=== PATIENT | male | born 1955 ===

== ENCOUNTER 2022-04-04 12:11 | Emergency (ER) | payer MEDICARE, MEDICAID, SELFPAY ==
--- NOTE | ~2022-04-04 | XR_ITS ---
EXAMINATION: XR CHEST CLINICAL INFORMATION: Cough COMPARISON: None TECHNIQUE: Frontal view of the chest was obtained. FINDINGS: Low lung volumes. Mild left basilar atelectasis. The remainder lung tian are grossly clear. There is no failure. No effusion. There has been a median sternotomy and surgical clips in the mediastinum are noted. The cardiac silhouette is not enlarged. XR/XR chest 1V IMPRESSION: Mild left basilar atelectasis
[2022-04-04 12:17] VITALS: BP 147/99; PULSE 65; RESP 18; TEMP 36.9; O2SAT 98; BMI 28.3
--- NOTE | 2022-04-04 12:24 | ECG_ITS ---
Test Reason : chest pain Blood Pressure : / mmHG Vent. Rate : 063 BPM Atrial Rate : 063 BPM P-R Int : 164 ms QRS Dur : 084 ms QT Int : 392 ms P-R-T Axes : 015 -05 015 degrees QTc Int : 401 ms Normal sinus rhythm Normal ECG When compared with ECG of 25-APR-2015 12:23, No significant change was found Referred By: Generic ED Physician Electronically Signed By:KETAN VEGA
[2022-04-04 12:39] LABS: MANUAL DIFF FLAG NO
[2022-04-04 12:49] LABS: Basophils Percent Auto 0.4 % (0-2); Eosinophils Absolute Auto 0.1 X10*3/uL (0.0-0.4); Eosinophils Percent Auto 1.3 % (0-4); Hematocrit 37.9 % (42.0-52.0); Hemoglobin 12.9 g/dl (14.0-18.0); Imm Gran Abs Auto 0.06 X10*3/uL (0.00-0.03); Imm Gran Pct Auto 0.6 % (0.0-0.4); Lymphocytes Absolute Auto 2.9 X10*3/uL (1.2-4.9); Lymphocytes Percent Auto 30.9 % (20-40); Mean Corpuscular Hemoglobin 29.3 pg (27.0-33.0); Mean Corpuscular Volume 86.1 fL (80.0-98.0); Mean Platelet Volume 10.2 fL (9.4-12.4); Monocytes Absolute Auto 0.6 X10*3/uL (0.1-1.2); Monocytes Percent Auto 6.3 % (2-11); Neutrophils Absolute Auto 5.7 x10*3/uL (2.0-8.3); Neutrophils Percent Auto 60.5 % (45-73); Platelet Count 277 X10*3/uL (160-400); Red Cell Distribution Width 12.4 % (11.0-16.0); White Blood Count 9.4 X10*3/uL (4.8-10.8)
[2022-04-04 13:04] LABS: Anion Gap 17 (12-20); Blood Urea Nitrogen 16 mg/dL (9-16); Carbon Dioxide 24 mmol/L (22-29); Chloride 106 mmol/L (96-108); Estimated Glomerular Filt Rate > 60; Glucose Random 133 mg/dL (60-115); Potassium 4.8 mmol/L (3.3-5.1); Sodium 142 mmol/L (135-145)
[2022-04-04 13:07] LABS: Troponin-I High Sensitivity < 3.5 ng/L (<3.5-35.0)
--- NOTE | 2022-04-04 14:07 | ED_ITS ---
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 Patient denies any chest pain, shortness of breath, dizziness, sweating, nausea, vomiting, URI symptoms, GI symptoms, symptoms. Patient states that he showed up to the clinic and was explained to them that he was having his baseline back pain and has known bony spurs in his back. He denies any lower leg swelling but does want to establish care with a field sales trainer here as well as possibly attend physical therapy. He otherwise states he has no acute complaints and his prescriptions have been refilled and are waiting him at the pharmacy. Related Data Allergies Allergy/AdvReac Type Severity Reaction Status Date / Time No Known Allergies Allergy Unverified 04/21/20 16:45 Review of Systems Review of Systems: Pertinent positives and negatives as stated in HPI 10 point review of systems is otherwise negative. PMFSH Past Medical History Source: nursing notes reviewed Social History Social History Advance Directives: No Advance Directives Information Provided: No Physical Exam Vital Signs: Vital Signs: Last Vital Signs Temp 98.0 F 04/04/22 15:04 Pulse 71 04/04/22 15:04 Resp 17 04/04/22 15:04 BP 141/74 H 04/04/22 15:04 Pulse Ox 98 04/04/22 15:04 O2 Del Method 04/04/22 15:04 BMI result Body Mass Index 28.3 VITAL SIGNS: Reviewed. GENERAL: Well developed, well nourished, in no acute distress. HEAD: Normocephalic/atraumatic EYES: PERRLA, EOMI EARS: Ext canals without abnormality OROPHARYNX: no oral lesions noted, posterior pharynx clear, moist mucosa NECK: Supple, no adenopathy LUNGS: Normal breath sounds. No adventitious sounds or accessory muscle use. SpO2<98> CARDIOVASCULAR: Regular rate and rhythm without noted murmurs, no JVD or lower extremity edema. ABDOMEN: Soft, non-tender, non-distended with bowel sounds. MUSCULOSKELETAL: No tenderness, deformities, or effusions noted on gross inspection. EXTREMITIES: No cyanosis, clubbing or edema; LUE: Patient has a brace to the left upper extremity that involves the forearm and hand. SKIN: Inspection of the skin reveals no rashes, ulcerations, jaundice, pallor, or petechiae. NEUROLOGIC: Alert and oriented x 4. Strength and sensation to light touch were grossly intact x 3, patient has had baseline sensation deficits in the distal aspect of the left upper extremity for over 3 years. 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 There is no evidence of cardiopulmonary or neurologic complaints or clinical findings other than those otherwise mentioned. On review of all investigations the high sensitivity troponin is undetectable and there are no acute EKG changes when compared with prior EKG in 2015. Patient was advised that I will be more than happy to provide him with a referral to see Cardiology, but the referral for physical therapy would need to come from his primary care provider. Review of all investigations negative for evidence to suggest heart failure, evidence of ischemia, chest x-ray without acute findings and all results discussed with patient at bedside. He was reassured and discharged home in stable condition. MDM - Chest Pain Lab Data Result diagrams: 04/04/22 12:34 04/04/22 12:34 Labs: Lab Results 04/04/22 04/04/22 04/04/22 Range/Units 12:34 12:34 12:34 WBC 9.4 (4.8-10.8) X10*3/uL RBC 4.40 L (4.60-5.80) X10*6/uL Hgb 12.9 L (14.0-18.0) g/dl Hct 37.9 L (42.0-52.0) % MCV 86.1 (80.0-98.0) fL MCH 29.3 (27.0-33.0) pg MCHC 34.0 (31.0-36.0) g/dl RDW 12.4 (11.0-16.0) % Plt Count 277 (160-400) X10*3/uL MPV 10.2 (9.4-12.4) fL Immature Gran % (Auto) 0.6 H (0.0-0.4) % Neut % (Auto) 60.5 (45-73) % Lymph % (Auto) 30.9 (20-40) % Stevens % (Auto) 6.3 (2-11) % Eos % (Auto) 1.3 (0-4) % Baso % (Auto) 0.4 (0-2) % Lymph # (Auto) 2.9 (1.2-4.9) X10*3/uL Stevens # (Auto) 0.6 (0.1-1.2) X10*3/uL Eos # (Auto) 0.1 (0.0-0.4) X10*3/uL Baso # (Auto) 0.0 (0.0-0.2) X10*3/uL Abs Immat Gran (auto) 0.06 H (0.00-0.03) X10*3/uL Absolute Neuts (auto) 5.7 (2.0-8.3) x10*3/uL Absolute Nucleated RBC 0.000 (0.0-0.012) X10*3/uL Nucleated RBC % (auto) 0.0 (0.0-0.2) /100WBC Sodium 142 (135-145) mmol/L Potassium 4.8 (3.3-5.1) mmol/L Chloride 106 (96-108) mmol/L Carbon Dioxide 24 (22-29) mmol/L Anion Gap 17 (12-20) BUN 16 (9-16) mg/dL Creatinine 1.05 (0.5-1.4) mg/dL Estim Creat Clear Calc 64.0 Estimated GFR > 60 Random Glucose 133 H (60-115) mg/dL Calcium 10.0 (8.4-10.2) mg/dL Troponin I High Sens < 3.5 (<3.5-35.0) ng/L B-Natriuretic Peptide 61 (<100) pg/mL Discharge Plan Discharge Clinical Impression: Atypical chest pain Patient Disposition: Home, Self-Care Instructions: Chest Pain (ED), Diabetes and Nutrition (ED) Additional Instructions: 1. Reanudar todos los medicamentos caseros seg?n lo prescrito. 2. Llame a la oficina de Cardiolog?a, se le proporciona stewart referencia a continuaci?n. 3. Maida un seguimiento con harvey proveedor de atenci?n primaria para hablar sobre la remisi?n a fisioterapia para harvey dolor de espalda cr?lauren. No dude en regresar a la pema de emergencias si los s?ntomas empeoran. Referrals: [facility] [Primary Care Provider] - (Patient is requesting a physical therapy and cardiology referral. The referral for Cardiology will be provided by us, but would appreciate you initiating the physical therapy referral. Patient presented today to the emergency room without any complaints.) Kb Coppola MD [Physician] - (66-year-old male, history CAD (CABG), stent, diabetes evaluated here in the emergency room today without acute complaints and requesting cardiology referral. Patient is receiving his medications with the [facility].) Print Language: Guatemalan
[2022-04-04 14:41] LABS: B Type Natriuretic Peptide 61 pg/mL (<100)
[2022-04-04 15:04] VITALS: BP 141/74; PULSE 71; RESP 17; TEMP 36.7; O2SAT 98
--- NOTE | 2022-04-04 15:43 | PC.NURSE ---
pt's at bedside at time of discharge. discharge packet provided to pt at time of discharge. pt PWD, reports no pain, ambulatory independently. pt verbalized understanding of discharge plan with no further questions
== END 2022-04-04 15:44 | disposition home or self-care (01) ==
PROVIDERS: Emergency Provider Student in an Organized Health Care Education/Training Program
DX: R07.89 Other chest pain (principal); I25.10 Atherosclerotic heart disease of native coronary artery without angina pectoris; R06.02 Shortness of breath; Z79.899 Other long term (current) drug therapy
CPT/HCPCS: 36415; 71045; 80048; 83880; 84484; 85025; 93005; 99283; 99284

== ENCOUNTER 2022-05-11 12:09 | Outpatient (REF) | payer MEDICARE, MEDICAID, SELFPAY ==
--- NOTE | ~2022-05-11 | XR_ITS ---
EXAMINATION: XR SHOULDER, LEFT CLINICAL INFORMATION: Pain left shoulder COMPARISON: Radiographs left shoulder 04/25/2015 TECHNIQUE: Left shoulder is imaged in 4 views. FINDINGS: No fracture, dislocation, destructive process. There are degenerative changes glenohumeral joint and mild degenerative changes acromioclavicular joint. No erosive change. No visible rotator cuff calcifications. Axial view suggests small chronic Hill-Sachs lesion posterior humeral head. There are surgical changes chest with multiple mediastinal clips and sternotomy wires. XR/XR shoulder LT min 2V IMPRESSION: -Mild degenerative changes glenohumeral joint and acromioclavicular joint. -No visible rotator cuff calcifications. -Suspect small chronic Hill-Sachs lesion posterior humeral head related to prior dislocation.
== END 2022-05-11 12:10 | disposition home or self-care (01) ==
LOC: HO.XRAY 12:09
PROVIDERS: PCP Internal Medicine; Visit Provider Internal Medicine
DX: M25.512 Pain in left shoulder (principal)
CPT/HCPCS: 73030

== ENCOUNTER → 2022-06-13 09:36 | Outpatient (BNVA) | payer OTHER, SELFPAY | PROVIDERS: PCP Internal Medicine; Referring Provider Internal Medicine; Visit Provider Internal Medicine | DX: M75.82 Other shoulder lesions, left shoulder (principal); G56.02 Carpal tunnel syndrome, left upper limb; I25.10 Atherosclerotic heart disease of native coronary artery without angina pectoris; I10 Essential (primary) hypertension; E11.8 Type 2 diabetes mellitus with unspecified complications; E78.5 Hyperlipidemia, unspecified; Z95.1 Presence of aortocoronary bypass graft | CPT/HCPCS: 20610; 93005; 99202; J1020 ==

== ENCOUNTER 2022-06-27 11:00 | Outpatient (RCR) | payer OTHER, SELFPAY | END 2022-07-24 10:58 | disposition home or self-care (01) | LOC: HO.OT 11:00 | PROVIDERS: PCP Internal Medicine; Visit Provider Internal Medicine | DX: M54.50 Low back pain, unspecified (principal) | CPT/HCPCS: 29125; 97035; 97110; 97140; 97165; 97760 ==

== ENCOUNTER → 2022-07-10 12:44 | Outpatient (REF) | payer OTHER, SELFPAY ==
--- NOTE | 2022-07-10 12:50 | CA_ITS ---
Transthoracic Echocardiogram Patient (Last, First, Middle): Huber Richey, Gender: Male Date of : 1955 Age: 67 Procedure Date: 07/10/2022 Procedure Type: Transthoracic Echocardiogram Location: OP Height: 162.56 cm Weight: 77.11 kg BSA: 1.83 m2 Heart Rate: 59 bpm BP: 110 / 70 mmHg Block Cuber: LATHA Piper MD: Vamsi Mendiola MD Analytical Data Miner: Kb Coppola MD Symptoms: I25.10 - Atherosclerotic heart disease of [place] coronary artery without... Study Quality: Fair ECG Rhythm: Bradycardia Conclusions: - 1. Low normal LV systolic function with grade 2 diastolic dysfunction with mild LVH 2. Trace aortic regurgitation 3. Normal right ventricular systolic pressure 4. No gross pericardial effusion Findings Left Ventricle Normal left ventricular cavity size. There is mildly increased left ventricular wall thickness. The left ventricular systolic function is low normal. The visually estimated ejection fraction is between 50-55%. Regional wall motion abnormalities can not be excluded due to suboptimal endocardial definition. Spectral Doppler is indicative of a pseudonormal filling pattern. E/E prime ratio is >15, consistent with elevated filling pressures. Evidence suggests grade II (moderate) diastolic dysfunction. Right Ventricle Normal right ventricular cavity size. There is mildly decreased right ventricular systolic function. Atria The left atrium is likely dilated. Interatrial shunt cannot be excluded. The right atrium was not well visualized. Aortic Valve There is mild calcification of the aortic valve. There is no aortic valve stenosis. There is trace (trivial) aortic valve regurgitation. Mitral Valve There is mild anterior and posterior mitral leaflet thickening. There is trace mitral valve regurgitation. There is no mitral valve stenosis. Pulmonic Valve The pulmonic valve was not well visualized. Tricuspid Valve Likely normal tricuspid valve structure and function. There is trace tricuspid valve regurgitation. The right ventricular systolic pressure is normal. Normal right atrial pressure. There is no evidence of pulmonary hypertension. Great Vessels All visible segments of the aorta are normal in size. The pulmonary artery was not well visualized. Venous The inferior vena cava is normal in size and collapses greater than 50% with inspiration. Pericardium/Pleural There is no evidence of pericardial effusion. Prior Study Comparison No prior study available for comparison. Recommendations, Care & Conclusions Recommend contrast in the future to improve endocardial definition. Measurements 2D Linear Measurements IVSd: 1.26 0.6-0.9/0.6-1.0 cm LVIDd: 4.24 3.9-5.3/4.2-5.9 cm LVIDd Index: 2.32 2.4-3.2/2.2-3.1 cm/m2 LVIDs: 2.91 2.0-3.6 cm LVPWd: 1.12 0.7-1.1 cm LA Diam: 3.90 2.7-3.8/3.0-4.0 cm LAIDs Index: 2.13 1.5-2.3 cm/m2 LV Mass: 222.45 67-162/88-224 g LV Mass Index: 121.56 43-95/49-115 g/m2 LVOT Diam: 1.90 3.0+(-)1.3 cm 2D Systolic Function EF 4C: 50.20 >55% EF 2C: 49.90 >55% EF BiP: 51.20 >55% Mitral Valve MV Pk E: 0.87 MV PK A: 0.79 MV Decel Time: 221.00 E/A: 1.10 E'Lateral: 7.18 E'Medial: 4.90 E/E' Med: 17.80 E/E' Lat: 12.20 PHT: 65.00 MVA PHT: 3.38 Decel [place]: 3.96 Aortic Valve AoV Pk Nigel: 1.19 AoV Mn Nigel: 0.82 AoV VTI: 0.26 AoV Pk Grad: 6.00 Aov Mn Grad: 3.00 KATRINA Cont.VTI: 2.01 LVOT LVOT Pk Nigel: 0.79 LVOT Mn Nigel: 0.56 LVOT VTI: 0.18 LVOT Pk Grad: 2.00 LVOT Mn Grad: 1.00 LVOT Diam: 1.90 LVOT Area: 2.84 Diastolic Function MV Pk E: 0.87 MV Pk A: 0.79 E/A: 1.10 E'Medial: 4.90 E/E' Med: 17.80 E' Laterial: 7.18 E/E' Lat: 12.20 Right Ventricle TAPSE (mm): 16.90 TVS' Nigel: 6.98 Tricuspid Valve TR Pk Nigel: 2.25 TR Pk Grad: 20.00 RA Press: 3.00 RVSP: 23.00 Great Vessels Aorta Sinus of Valsalva: 3.40 2.0-3.5 cm Ao Asc: 3.20 2.1-3.4 cm Pulmonary Valve PV Pk Nigel: 0.95 Peak PV Grad: 4.00 Updated in Other Vendor System with Status of Final Kb Coppola MD electronically signed on 07/13/2022 4:07:41 PM with status of Final
== END ==
LOC: HO.CARD 12:44
PROVIDERS: PCP Internal Medicine; Visit Provider Internal Medicine
DX: I25.10 Atherosclerotic heart disease of native coronary artery without angina pectoris (principal); Z95.1 Presence of aortocoronary bypass graft
CPT/HCPCS: 93306

== ENCOUNTER 2022-08-14 11:00 | Outpatient (RCR) | payer OTHER, SELFPAY | END 2022-10-02 08:52 | disposition home or self-care (01) | LOC: HO.PT 11:00 | PROVIDERS: PCP Internal Medicine; Visit Provider General Practice | DX: M54.50 Low back pain, unspecified (principal) | CPT/HCPCS: 97110; 97162 ==

== ENCOUNTER → 2022-09-26 11:47 | Outpatient (BNVA) | payer OTHER, SELFPAY | PROVIDERS: PCP Internal Medicine; Referring Provider Internal Medicine; Visit Provider Internal Medicine | DX: Z13.89 Encounter for screening for other disorder (principal) ==

== ENCOUNTER → 2022-11-22 09:41 | Outpatient (BNVA) | payer OTHER, SELFPAY | PROVIDERS: PCP Internal Medicine; Visit Provider Physician Assistant | DX: M75.82 Other shoulder lesions, left shoulder (principal) | CPT/HCPCS: 99212 ==

== ENCOUNTER 2023-01-03 12:00 | Outpatient (RCR) | payer OTHER, SELFPAY ==
--- NOTE | 2022-12-17 13:55 | MHC.PT.EP ---
[facility] [place] Office [place] Office [place] Office [address] [phone] F: [phone] F: [phone] F: [phone] F: [phone] Physical Therapy Plan of Care Date of Evaluation: Date of Surgery: N/A Diagnosis: other shoulder lesions, left shoulder Assessment: Pt is a 67yo M who presents to PT with chronic L shoulder pain with history of dislocations >5 years ago per pt report. He presents to PT with current impairments in pain, decreased L shoulder ROM, decreased L UE strength, and impaired posture. He is limited functionally by lifting, reaching, and overhead ADLs. He is a good candidate for skilled PT in order to address current impairments to facilitate return to PLOF. He is recommended to be seen 2x/week for 4 weeks and will be reassessed at that time. Frequency and Duration: The patient will be seen 2x/week for 4 weeks Short Term Goals: Pt will be I with HEP to promote self management of symptoms Pt will improve L shoulder flexion by at least 10 degrees Fpc Goals: Pt will perform overhead ADLs with minimal to no compensation Pt will achieve full ROM and strength all planes of L shoulder to assist with lifting and reaching Treatment Plan: Modalities to reduce pain, spasms and effusion. Manual therapy to restore motion and function. Therapeutic exercise to improve strength and flexibility. Neuromuscular re-education for posture and balance. Therapeutic activities to return to functional activities of daily living. Electronically signed by: Germaine Edmondson, PT, DPT Please sign and return to therapist. Thank you for your referral.
--- NOTE | 2023-01-15 14:23 | MHC.PT.DC ---
[facility] [place] Office [place] Office [place] Office [address] [phone] F: [phone] F: [phone] F: [phone] F: [phone] Physical Therapy Discharge Report Diagnosis: other shoulder lesions, left shoulder Date of Surgery: N/A Date of Evaluation: 12/17/22 Date of Discharge: 01/15/23 Treatments to Date: 3 Cancellations to Date: 1 No Shows to Date: 4 Discharge Status: Visit Non-compliance Discharge Summary: Pt was seen for PT from 12/17/22-01/03/23. His last attended appointment was 01/03/23. He had 4 no-shows since SOC. Pt is being D/C from skilled PT per [facility] attendance policy and visit non compliance. Pt current level of function unknown at this time. Electronically signed by: Germaine Edmondson, PT, DPT Please sign and return to therapist. Thank you for your referral.
== END 2023-01-15 14:23 | disposition home or self-care (01) ==
LOC: HO.PT 12:00
PROVIDERS: PCP Internal Medicine; Visit Provider Physician Assistant
DX: M75.82 Other shoulder lesions, left shoulder (principal)
CPT/HCPCS: 97110; 97162

== ENCOUNTER 2023-02-11 11:18 | Outpatient (REF) | payer OTHER, SELFPAY ==
[2023-02-13 21:48] LABS: Rubeola IgG (Measles) >300.00 AU/mL
[2023-02-14 03:14] LABS: TS Negative Control Passed; TS Panel A 0; TS Panel B 0; TS Positive Control Passed; TSpotTB Negative (Negative)
== END 2023-02-11 11:19 | disposition home or self-care (01) ==
LOC: HO.HHCL 11:18
PROVIDERS: Visit Provider Internal Medicine
DX: Z00.00 Encounter for general adult medical examination without abnormal findings (principal); Z11.1 Encounter for screening for respiratory tuberculosis
CPT/HCPCS: 36415; 86481; 86735; 86762; 86765

== ENCOUNTER 2023-02-13 11:33 | Outpatient (AMB) | payer OTHER, SELFPAY ==
[2023-02-13 11:36] VITALS: BMI 30.4
--- NOTE | 2023-02-13 11:36 | A.OFFVIS_ITS ---
Intake Vital Signs 02/13/23 11:36 Height 5 ft 4 in Weight 177 lb BMI 30.4 Intake Visit Reasons: OV- LT shoulder pain MRI review Intake Note: Huber is a 67 year old male who presents today for an MRI review of left shoulder pain. Patient reports no improvement in pain, stating pain is worse and is now radiating down to his elbow. Allergies ibuprofen Adverse Reaction (Intermediate, Verified 02/13/23 11:38) Swelling HPI OV- LT shoulder pain MRI review HPI Details 67-year-old male who returns to the office today for an MRI review of left shoulder pain. He continues to have worsening pain in his shoulder which radiates down to his elbow along with instability in the shoulder. He has not attended PT as requested. [facility] Medical History Alcohol dependence with unspecified alcohol-induced disorder Anxiety and depression Atherosclerotic cardiovascular disease Chronic left shoulder pain Erectile dysfunction Essential hypertension Hyperlipidemia, unspecified Osteoarthritis of hips, bilateral Stomach ulcer Type 2 diabetes mellitus with unspecified complications Surgical History S/P CABG (coronary artery bypass graft) Family History Father No problems noted. Mother Breast cancer Sister No problems noted. Social History Patient Tobacco Use Status: Former Tobacco user Review of Systems Const All systems reviewed & are unremarkable except as noted in HPI and below Physical Exam Vital Signs: BMI result Body Mass Index 30.4 Const General: cooperative and no acute distress Orientation/consciousness: patient oriented x3 Resp Effort & Inspection: normal respiratory effort and able to speak in complete sentences Cardio Peripheral pulses: Peripheral pulses 2+ throughout Neuro General: patient oriented x3 Extrem Other: Left shoulder normal to inspection. Tenderness over the bicipital groove and along the deltoid region of the shoulder. FF to 175, ER to 90, IR to S1. 5/5 RTC strength, negative pena, cross body abduction. NVI. Results Reviewed Results Reviewed: MRI of the left shoulder 12/24/22 -Mild supraspinatus tendinosis with irregular bursal surface fraying distally measuring 1.5cm in AP dimension. Minimal infraspinatus tendinosis. No full thickness rotator cuff tendon tear -Moderate ac joint oa with mod sub acromial spurring -non displaced undersurface tear of the superior labrum. No anterior or anteroinferior labral tear -chronic hill sachs deformity at the posterior aspectof the humeral head associated with marrow edema. No acute osseous abnormality -mild ghj oa Assessment & Plan Assessment & Plan (1) Tendonitis of left rotator cuff: Code(s): M75.82 - Other shoulder lesions, left shoulder (2) Instability of left shoulder joint: Code(s): M25.312 - Other instability, left shoulder Plan He is going to begin a course of physical therapy to work on RTC and periscapular stabilization. I would also like him to meet with Dr. Barbosa in 6- 8 weeks to determine if he is a surgical candidate for a possible RTC repair and labral debridement. He is content with the plan and will follow-up as scheduled Orders: Orders PT Evaluation and Treatment Today M25.312 - Other instability, left shoulder, M75.82 - Other shoulder lesions, left shoulder Patient Instructions: Scribed for Rodríguez Sidhu PA-C, by Khoi Hardy senior medical billing specialist, on 02/13/2023 at 11:30 AM EST. I, Rodríguez Sidhu PA-C, have personally reviewed and agree with the information entered by the scribe. Coding Level of Care Code Est Pt Level 3 (02009) Diagnoses Tendonitis of left rotator cuff M75.82 Instability of left shoulder joint M25.312
== END 2023-02-13 11:58 | disposition home or self-care (01) ==
PROVIDERS: PCP Internal Medicine; Visit Provider Physician Assistant
DX: M75.82 Other shoulder lesions, left shoulder (principal); M25.312 Other instability, left shoulder; M19.012 Primary osteoarthritis, left shoulder
CPT/HCPCS: 99213

== ENCOUNTER → 2023-02-13 11:33 | Outpatient (BNVA) | payer OTHER, SELFPAY | PROVIDERS: PCP Internal Medicine; Visit Provider Physician Assistant | DX: M75.82 Other shoulder lesions, left shoulder (principal); M25.312 Other instability, left shoulder | CPT/HCPCS: 99212 ==

== ENCOUNTER 2023-02-17 11:15 | Emergency (ER) | payer OTHER, SELFPAY ==
--- NOTE | ~2023-02-17 | XR_ITS ---
EXAMINATION: XR CHEST CLINICAL INFORMATION: Chest pain. COMPARISON: 04/04/2022 chest radiograph. TECHNIQUE: Frontal view of the chest was obtained. FINDINGS: The lungs are clear. Multiple surgical clips overlie the cardiomediastinal silhouette without abnormality. Multiple sternotomy wires are intact. XR/XR chest 1V IMPRESSION: No acute cardiopulmonary process.
--- NOTE | 2023-02-17 11:18 | ECG_ITS ---
Test Reason : CHEST PAIN Blood Pressure : / mmHG Vent. Rate : 068 BPM Atrial Rate : 068 BPM P-R Int : 138 ms QRS Dur : 078 ms QT Int : 374 ms P-R-T Axes : 046 -14 020 degrees QTc Int : 397 ms Normal sinus rhythm Normal ECG When compared with ECG of 04-APR-2022 12:26, No significant change was found Referred By: Generic ED Physician Electronically Signed By:Chava Crockett
[2023-02-17 11:29] VITALS: BP 170/89; PULSE 75; RESP 20; TEMP 35.9; O2SAT 97; BMI 29.2
[2023-02-17 11:35] LABS: MANUAL DIFF FLAG NO
[2023-02-17 11:36] LABS: Basophils Percent Auto 0.4 % (0-2); Eosinophils Absolute Auto 0.2 X10*3/uL (0.0-0.4); Hematocrit 40.8 % (42.0-52.0); Hemoglobin 13.5 g/dl (14.0-18.0); Imm Gran Abs Auto 0.05 X10*3/uL (0.00-0.03); Imm Gran Pct Auto 0.6 % (0.0-0.4); Lymphocytes Absolute Auto 2.8 X10*3/uL (1.2-4.9); Lymphocytes Percent Auto 34.6 % (20-40); Mean Corpuscular HGB Conc 33.1 g/dl (31.0-36.0); Mean Corpuscular Hemoglobin 29.1 pg (27.0-33.0); Mean Corpuscular Volume 87.9 fL (80.0-98.0); Mean Platelet Volume 9.9 fL (9.4-12.4); Monocytes Absolute Auto 0.6 X10*3/uL (0.1-1.2); Monocytes Percent Auto 7.5 % (2-11); Neutrophils Absolute Auto 4.5 x10*3/uL (2.0-8.3); Neutrophils Percent Auto 54.9 % (45-73); Platelet Count 243 X10*3/uL (160-400); Red Blood Count 4.64 X10*6/uL (4.60-5.80); Red Cell Distribution Width 12.9 % (11.0-16.0); White Blood Count 8.1 X10*3/uL (4.8-10.8)
[2023-02-17 11:48] LABS: Anion Gap 17 (12-20); Blood Urea Nitrogen 12 mg/dL (9-16); Calcium 10.5 mg/dL (8.4-10.2); Carbon Dioxide 23 mmol/L (22-29); Chloride 102 mmol/L (96-108); Creatinine Clr Calc Pharmacy 62.3; Estimated Glomerular Filt Rate > 60; Glucose Random 247 mg/dL (60-115); Potassium 5.1 mmol/L (3.3-5.1); Sodium 137 mmol/L (135-145)
[2023-02-17 12:00] LABS: Troponin-I High Sensitivity < 2.7 ng/L (<3.5-35.0)
--- NOTE | 2023-02-17 12:33 | ED_ITS ---
HPI - Skin/Abscess/Foreign Bdy General Chief complaint: Skin/Abscess/Foreign Body Stated complaint: chest pain, rash, vaccine reaction? Time Seen by Provider: 02/17/23 12:00 Source: patient Mode of arrival: ambulatory Limitations: language barrier ( Greek-speaking medical receptionist biller utilized) History of Present Illness HPI narrative: patient is a 67-year-old male who presents emergency department for evaluation a painful pruritic burning rash to the right lateral neck, shoulder, and upper chest. Reports that this rash started 2022 which was 2 days after he received Tdap and pneumococcal 20-valent vaccination. denies headache, dizziness, lightheadedness, difficulty breathing, ear pain. Related Data Home Medications Medication Instructions Recorded Confirmed acetaminophen 500 mg tablet 1,000 mg PO Q8H PRN 06/13/22 11/22/22 omeprazole 20 mg capsule,delayed 20 mg PO BID 06/13/22 11/22/22 release amlodipine 2.5 mg tablet 2.5 mg PO DAILY 09/26/22 11/22/22 aspirin 81 mg tablet,delayed 81 mg PO DAILY 09/26/22 11/22/22 release (Adult Aspirin Regimen) clopidogrel 75 mg tablet (Plavix) 75 mg PO DAILY 09/26/22 11/22/22 gabapentin 100 mg capsule 100 mg PO DAILY 09/26/22 11/22/22 insulin glargine 100 unit/mL 30 unit subcut DAILY 09/26/22 11/22/22 subcutaneous solution (Lantus U-100 Insulin) lisinopril 40 mg tablet 40 mg PO DAILY 09/26/22 11/22/22 metformin 1,000 mg tablet 1,000 mg PO BID 09/26/22 11/22/22 metoprolol succinate 50 mg 50 mg PO DAILY 09/26/22 11/22/22 tablet,extended release 24 hr rosuvastatin 40 mg tablet 40 mg PO DAILY 09/26/22 11/22/22 sildenafil 100 mg tablet (Viagra) 100 mg PO DAILY PRN 09/26/22 11/22/22 Previous Rx's Medication Instructions Recorded lorazepam 0.5 mg tablet 0.5 mg PO DAILY PRN anxiety #2 tabs 11/22/22 oxycodone 5 mg tablet 5 mg PO Q6H PRN pain #10 tabs 02/17/23 valacyclovir 1 gram tablet 1,000 mg PO TID 7 days #21 tabs 02/17/23 Allergies Allergy/AdvReac Type Severity Reaction Status Date / Time ibuprofen AdvReac Intermediate Swelling Verified 02/13/23 11:38 Review of Systems Review of Systems: Constitutional: No weight loss, fever, chills, weakness or fatigue. Skin: positive rash Cardiovascular: positive chest pain No palpitations or pedal edema. Respiratory: No shortness of breath, cough or sputum production. Gastrointestinal: No anorexia, nausea, vomiting or diarrhea. No abdominal pain or blood in stool. Genitourinary: No burning micturition. No urinary frequency or incontinence. Musculoskeletal: No muscle pain, back pain, joint pain or stiffness. Psychiatric: No depression or anxiety. Yes all other systems are reviewed and are negative [facility] Past Medical History Attestation statement: The following information was validated with the patient. Source: old records reviewed Medical History Alcohol dependence with unspecified alcohol-induced disorder Anxiety and depression Atherosclerotic cardiovascular disease Chronic left shoulder pain Erectile dysfunction Essential hypertension Hyperlipidemia, unspecified Osteoarthritis of hips, bilateral Stomach ulcer Type 2 diabetes mellitus with unspecified complications Surgical History S/P CABG (coronary artery bypass graft) Family History Family History Father No problems noted. Mother Breast cancer Sister No problems noted. Social History Social History Patient Tobacco Use Status: Former Tobacco user Advance Directives: No Advance Directives Information Provided: Yes Physical Exam Vital Signs: Vital Signs: Last Vital Signs Temp 96.6 F L 02/17/23 11:29 Pulse 75 02/17/23 11:29 Resp 20 02/17/23 11:29 BP 170/89 H 02/17/23 11:29 Pulse Ox 97 02/17/23 11:29 O2 Del Method Room Air 02/17/23 11:29 BMI result Body Mass Index 29.2 Appearance: Alert.?Oriented to person, place and time. No acute distress.?Normal affect. Eyes: Pupils equal, round and reactive to light.? ENT: Pharynx normal. TM normal bilaterally?? Neck: Normal inspection.? Neck supple.?? CVS: Heart sounds normal. Normal heart rate and rhythm.? Pulses normal.?? Respiratory: No respiratory distress.? Lung sounds clear to auscultation bilaterally?? Abdomen: Soft and non-tender. Normoactive bowel sounds. Skin: Skin warm and dry.? Normal skin color.? vesicular eruption with erythematous base Extremities: No lower extremity edema.? Neuro: Moves all extremities spontaneously. Sensation intact bilaterally. No focal neuro deficits. Ambulates with normal steady gait. Medical Decision Making Medical Decision Making [facility] Narrative: Patient is a 67-year-old male presents emergency department for evaluation of a rash with associated pain. CBC is without leukocytosis, a very mild normocytic anemia which is consistent with baseline. BMP is overall unremarkable, elevated random glucose patient is a type 2 diabetic. Troponin <2.7, EKG revealing normal sinus rhythm with ventricular rate of 68, normal axis, no ST elevation, no ST depression, no T-wave inversion, QTC of 397, no acute ischemic changes, not consistent with ACS at this time. Chest x-ray without any acute cardiopulmonary process. Pain would not be consistent with pneumonia or pneumothorax. Upon physical examination rash at this time appears most consistent with herpes zoster involving dermatomes C3-C6, I explained this at length to patient. Discussed appropriate treatment with valacyclovir and oxycodone for pain. Discussed precautions with the use of oxycodone. Reviewed worrisome signs and symptoms that would warrant re-evaluation in the emergency department. All questions answered. At this time he is stable for discharge. Differential Diagnosis Differential Diagnoses: The differential diagnosis associated with the presentation includes ( Vaccine reaction, herpes simplex virus, herpes zoster, contact dermatitis, drug eruption, ACS) Admission/Observation Consideration of admission/observation: Escalation of care including ad mission/observation considered ( considered admission for chest pain, please see course narrative) Lab Data [facility] Lab Attestation statement: I reviewed the patient's lab results. ( See above narrative) 02/17/23 11:28 02/17/23 11:28 Labs: Lab Results 02/17/23 02/17/23 02/17/23 Range/Units 11:28 11:28 11:28 WBC 8.1 (4.8-10.8) X10*3/uL RBC 4.64 (4.60-5.80) X10*6/uL Hgb 13.5 L (14.0-18.0) g/dl Hct 40.8 L (42.0-52.0) % MCV 87.9 (80.0-98.0) fL MCH 29.1 (27.0-33.0) pg MCHC 33.1 (31.0-36.0) g/dl RDW 12.9 (11.0-16.0) % Plt Count 243 (160-400) X10*3/uL MPV 9.9 (9.4-12.4) fL Immature Gran % (Auto) 0.6 H (0.0-0.4) % Neut % (Auto) 54.9 (45-73) % Lymph % (Auto) 34.6 (20-40) % [place] % (Auto) 7.5 (2-11) % Eos % (Auto) 2.0 (0-4) % Baso % (Auto) 0.4 (0-2) % Lymph # (Auto) 2.8 (1.2-4.9) X10*3/uL [place] # (Auto) 0.6 (0.1-1.2) X10*3/uL Eos # (Auto) 0.2 (0.0-0.4) X10*3/uL Baso # (Auto) 0.0 (0.0-0.2) X10*3/uL Abs Immat Gran (auto) 0.05 H (0.00-0.03) X10*3/uL Absolute Neuts (auto) 4.5 (2.0-8.3) x10*3/uL Absolute Nucleated RBC 0.000 (0.0-0.012) X10*3/uL Nucleated RBC % (auto) 0.0 (0.0-0.2) /100WBC Sodium 137 (135-145) mmol/L Potassium 5.1 (3.3-5.1) mmol/L Chloride 102 (96-108) mmol/L Carbon Dioxide 23 (22-29) mmol/L Anion Gap 17 (12-20) BUN 12 (9-16) mg/dL Creatinine 1.08 (0.5-1.4) mg/dL Estim Creat Clear Calc 62.3 Estimated GFR > 60 Random Glucose 247 H (60-115) mg/dL Calcium 10.5 H (8.4-10.2) mg/dL Troponin I High Sens < 2.7 (<3.5-35.0) ng/L Independent Interpretation I performed an independent interpretation of an: EKG ( as per above narrative) and Plain X-Ray ( I personally interpreted chest x-ray and agree with radiolog ist impression, no pneumonia or pneumothorax) Radiology Impression Discussion of test interpretation with radiology: I have reviewed the radiologist's reading. Radiologist Impression: XR/XR chest 1V IMPRESSION: No acute cardiopulmonary process. Independent Historian Clinical information obtained from an independent historian. History obtained from or confirmed by: Spouse ( patient's significant other is present at bedside who confirmed history) External Record Review External record reviewed: Other ( external vaccination record) Prescription Management I considered prescription management with: Pain Medication and Antiviral Discharge Plan Discharge Clinical Impression: Herpes zoster Patient Disposition: Home, Self-Care Instructions: Shingles (ED) Additional Instructions: - As discussed, the rash that is currently present appears most consistent with a shingles rash, this is from the herpes zoster virus, the same virus that causes chickenpox in childhood. - I have sent a prescription for valacyclovir to your pharmacy, this is an antiviral medication. Please complete this entire course. Be sure to drink plenty of fluids while taking this medication. - I have also sent a prescription for pain medication to your pharmacy, oxy codone. This is a narcotic medication, it may be addictive in it may make you drowsy. You should not drive, drink alcohol, or operate machinery while taking this medication. - You should refrain from being around young children, or breast- feeding women as this may be contagious and can cause them to get the virus. - Please contact your primary care provider to arrange for a follow-up visit. - Ciro se mencion?, la erupci?n que est? presente actualmente parece m?s consis tente con stewart erupci?n de herpes z?ster, esto es del virus del herpes zoster, el mismo virus que causa la varicela en la infancia. - He enviado stewart receta de valaciclovir a harvey farmacia, irvin es un medicamento antiviral. Por favor complete todo irvin curso. Aseg?rese de beber muchos l?quidos mientras rylie irvin medicamento. - Tambi?n he enviado stewart receta de analg?sicos a harvey farmacia, oxicodona. Irvin es un medicamento narc?camille, puede ser adictivo y puede causarle somnolencia. No debe conducir, beber alcohol ni operar maquinaria mientras rylie irvin medicamento. - Debe abstenerse de estar cerca de ni?os hoang?os, mujeres embarazadas o en per?odo de lactancia, ya que esto puede ser contagioso y puede hacer que se contagien del virus. - Comun?quese con harvey proveedor de atenci?n primaria para programar stewart visita de seguimiento. Prescriptions: New valacyclovir 1 gram tablet 1,000 mg PO TID 7 Days Qty: 21 0RF oxycodone 5 mg tablet 5 mg PO Q6H PRN (Reason: pain) Qty: 10 0RF Rx Instructions: Partial Fill upon patient request. No Action amlodipine 2.5 mg tablet 2.5 mg PO DAILY aspirin [Adult Aspirin Regimen] 81 mg tablet,delayed release (DR/EC) 81 mg PO DAILY clopidogrel [Plavix] 75 mg tablet 75 mg PO DAILY gabapentin 100 mg capsule 100 mg PO DAILY insulin glargine [Lantus U-100 Insulin] 100 unit/mL solution 30 unit subcut DAILY lisinopril 40 mg tablet 40 mg PO DAILY metformin 1,000 mg tablet 1,000 mg PO BID metoprolol succinate 50 mg tablet extended release 24 hr 50 mg PO DAILY rosuvastatin 40 mg tablet 40 mg PO DAILY sildenafil [Viagra] 100 mg tablet 100 mg PO DAILY PRN Rx Instructions: administer 30 minutes to 4 hours before activity omeprazole 20 mg capsule,delayed release(DR/EC) 20 mg PO BID acetaminophen 500 mg tablet 1,000 mg PO Q8H PRN lorazepam 0.5 mg tablet 0.5 mg PO DAILY PRN (Reason: anxiety) Qty: 2 0RF Rx Instructions: 1 tab 30 mins prior to exam, 2nd tab prn. Do not drive while taking this medication Referrals: Joan Little MD [Primary Care Provider] - Print Language: Greek
== END 2023-02-17 13:12 | disposition home or self-care (01) ==
PROVIDERS: Emergency Provider Student in an Organized Health Care Education/Training Program; PCP Internal Medicine
DX: B02.8 Zoster with other complications (principal); R07.89 Other chest pain; R21 Rash and other nonspecific skin eruption; Z79.899 Other long term (current) drug therapy; Z87.891 Personal history of nicotine dependence
CPT/HCPCS: 36415; 71045; 80048; 84484; 85025; 93005; 99284

== ENCOUNTER → 2023-02-17 11:18 | Outpatient (BNV) | payer OTHER, SELFPAY | PROVIDERS: Emergency Provider Student in an Organized Health Care Education/Training Program; PCP Internal Medicine; Visit Provider Internal Medicine Cardiovascular Disease | DX: R07.9 Chest pain, unspecified (principal) | CPT/HCPCS: 93010 ==

== ENCOUNTER 2023-02-26 12:02 | Outpatient (REF) | payer OTHER, SELFPAY ==
[2023-02-26 13:13] LABS: MANUAL DIFF FLAG NO
[2023-02-26 13:27] LABS: Basophils Percent Auto 0.3 % (0-2); Eosinophils Absolute Auto 0.2 X10*3/uL (0.0-0.4); Eosinophils Percent Auto 1.5 % (0-4); Hematocrit 38.9 % (42.0-52.0); Hemoglobin 12.7 g/dl (14.0-18.0); Imm Gran Abs Auto 0.05 X10*3/uL (0.00-0.03); Imm Gran Pct Auto 0.5 % (0.0-0.4); Lymphocytes Absolute Auto 3.3 X10*3/uL (1.2-4.9); Lymphocytes Percent Auto 33.4 % (20-40); Mean Corpuscular HGB Conc 32.6 g/dl (31.0-36.0); Mean Corpuscular Volume 88.8 fL (80.0-98.0); Mean Platelet Volume 10.1 fL (9.4-12.4); Monocytes Absolute Auto 0.7 X10*3/uL (0.1-1.2); Monocytes Percent Auto 6.9 % (2-11); Neutrophils Absolute Auto 5.7 x10*3/uL (2.0-8.3); Neutrophils Percent Auto 57.4 % (45-73); Platelet Count 324 X10*3/uL (160-400); Red Blood Count 4.38 X10*6/uL (4.60-5.80); White Blood Count 9.9 X10*3/uL (4.8-10.8)
== END 2023-02-26 12:03 | disposition home or self-care (01) ==
LOC: HO.HHCL 12:02
PROVIDERS: Visit Provider Internal Medicine
DX: K62.5 Hemorrhage of anus and rectum (principal)
CPT/HCPCS: 36415; 85025

== ENCOUNTER 2023-03-08 | Outpatient (REF) | payer OTHER, SELFPAY | END 2023-03-08 00:01 | disposition home or self-care (01) | LOC: HO.HOSX | PROVIDERS: Visit Provider Physician Assistant | DX: Z13.89 Encounter for screening for other disorder (principal) ==

== ENCOUNTER 2023-03-08 10:38 | Emergency (ER) | payer OTHER, SELFPAY ==
[2023-03-08 10:43] VITALS: BP 143/72; PULSE 72; RESP 16; TEMP 36.6; O2SAT 98; BMI 28.7
[2023-03-08 11:15] LABS: MANUAL DIFF FLAG NO
[2023-03-08 11:17] LABS: Basophils Percent Auto 0.4 % (0-2); Eosinophils Absolute Auto 0.2 X10*3/uL (0.0-0.4); Eosinophils Percent Auto 2.1 % (0-4); Hemoglobin 12.1 g/dl (14.0-18.0); Imm Gran Abs Auto 0.03 X10*3/uL (0.00-0.03); Imm Gran Pct Auto 0.3 % (0.0-0.4); Lymphocytes Absolute Auto 2.9 X10*3/uL (1.2-4.9); Lymphocytes Percent Auto 31.6 % (20-40); Mean Corpuscular HGB Conc 33.6 g/dl (31.0-36.0); Mean Corpuscular Hemoglobin 29.4 pg (27.0-33.0); Mean Corpuscular Volume 87.4 fL (80.0-98.0); Mean Platelet Volume 9.8 fL (9.4-12.4); Monocytes Absolute Auto 0.6 X10*3/uL (0.1-1.2); Monocytes Percent Auto 6.9 % (2-11); Neutrophils Absolute Auto 5.4 x10*3/uL (2.0-8.3); Neutrophils Percent Auto 58.7 % (45-73); Platelet Count 280 X10*3/uL (160-400); Red Blood Count 4.12 X10*6/uL (4.60-5.80); Red Cell Distribution Width 13.2 % (11.0-16.0); White Blood Count 9.2 X10*3/uL (4.8-10.8)
[2023-03-08 14:15] VITALS: BP 126/76; PULSE 60; RESP 16; TEMP 36.7; O2SAT 97
[2023-03-08 14:32] LABS: OBS Int Ctl Valid YES; OBS1 POSITIVE (NEGATIVE)
--- NOTE | 2023-03-08 15:14 | ED_ITS ---
HPI - General Adult General Chief complaint: Abdominal Pain Stated complaint: bloody stool x1week Time Seen by Provider: 03/08/23 13:37 Source: patient Mode of arrival: ambulatory Limitations: no limitations History of Present Illness HPI narrative: 67-year-old male history of hemorrhoids presents to the rectal bleeding on bowel movement for 1 week. Patient describes blood as bright red blood. Patient sees blood on tissue. Patient states stool is brown normal color. Patient denies any abdominal pain, weakness, dizziness, chest pain, shortness of breath, or passing out. Patient came to the ED for evaluation. Related Data Home Medications Medication Instructions Recorded Confirmed acetaminophen 500 mg tablet 1,000 mg PO Q8H PRN 06/13/22 11/22/22 omeprazole 20 mg capsule,delayed 20 mg PO BID 06/13/22 11/22/22 release amlodipine 2.5 mg tablet 2.5 mg PO DAILY 09/26/22 11/22/22 aspirin 81 mg tablet,delayed 81 mg PO DAILY 09/26/22 11/22/22 release (Adult Aspirin Regimen) clopidogrel 75 mg tablet (Plavix) 75 mg PO DAILY 09/26/22 11/22/22 gabapentin 100 mg capsule 100 mg PO DAILY 09/26/22 11/22/22 insulin glargine 100 unit/mL 30 unit subcut DAILY 09/26/22 11/22/22 subcutaneous solution (Lantus U-100 Insulin) lisinopril 40 mg tablet 40 mg PO DAILY 09/26/22 11/22/22 metformin 1,000 mg tablet 1,000 mg PO BID 09/26/22 11/22/22 metoprolol succinate 50 mg 50 mg PO DAILY 09/26/22 11/22/22 tablet,extended release 24 hr rosuvastatin 40 mg tablet 40 mg PO DAILY 09/26/22 11/22/22 sildenafil 100 mg tablet (Viagra) 100 mg PO DAILY PRN 09/26/22 11/22/22 Previous Rx's Medication Instructions Recorded lorazepam 0.5 mg tablet 0.5 mg PO DAILY PRN anxiety #2 tabs 11/22/22 oxycodone 5 mg tablet 5 mg PO Q6H PRN pain #10 tabs 02/17/23 valacyclovir 1 gram tablet 1,000 mg PO TID 7 days #21 tabs 02/17/23 hydrocortisone acetate 25 mg 25 mg VA BEDTIME #12 ea 03/08/23 rectal suppository (Anusol-HC) Allergies Allergy/AdvReac Type Severity Reaction Status Date / Time ibuprofen AdvReac Intermediate Swelling Verified 02/13/23 11:38 Review of Systems Review of Systems: Yes all other systems are reviewed and are negative [facility] Past Medical History Medical History Alcohol dependence with unspecified alcohol-induced disorder Anxiety and depression Atherosclerotic cardiovascular disease Chronic left shoulder pain Erectile dysfunction Essential hypertension Hyperlipidemia, unspecified Osteoarthritis of hips, bilateral Stomach ulcer Type 2 diabetes mellitus with unspecified complications Surgical History S/P CABG (coronary artery bypass graft) Family History Family History Father No problems noted. Mother Breast cancer Sister No problems noted. Social History Social History Patient Tobacco Use Status: Former Tobacco user Advance Directives: No Advance Directives Information Provided: Yes Physical Exam ED Vital Signs: Vital Signs - 24 hr 03/08/23 10:43 03/08/23 14:15 Temperature 97.9 F 98.1 F Pulse Rate 72 60 Respiratory Rate 16 16 Blood Pressure 143/72 H 126/76 Pulse Oximetry 98 97 Oxygen Delivery Method Room Air Room Air BMI result Body Mass Index 28.7 Const General: cooperative, healthy appearing, comfortable, no acute distress, well developed, alert, awake and Physically active Orientation/consciousness: oriented to person, oriented to place, oriented to time and patient [facility]: Yes normal to inspection, Yes No palpable skull fracture present, Yes normocephalic, Yes atraumatic and No abrasion Eyes General: appearance normal, both eyes and all related structures Neck Neck: Yes normal visual inspection, Yes full ROM, Yes no lymphadenopathy, Yes no meningeal signs, Yes trachea midline, Yes supple, No anterior neck swelling and No tender Chest Chest palpation & inspection: normal inspection of the chest and normal palpation of entire chest wall Resp Effort & Inspection: normal respiratory effort and able to speak in complete sentences Auscultation: clear to auscultation bilaterally Cardio Jugular venous distension: no JVD Heart sounds: S1 normal heart sound present and S2 normal heart sound present GI Other: Rectal exam negative black stool, melena, external hemorrhoids, fissures, or fistula. Possible internal hemmhroids. Inspection: Yes normal to inspection and No abdominal wall ecchymosis Palpation (GI): Soft to palpation, not firm, nontender, no guarding and not rigid General: No CVA tenderness and Yes no CVA tenderness Back/Spine/Pelvis Back: no CVA tenderness, No CVA tenderness and No back tenderness Skin General skin exam: no rashes or lesions noted, elasticity normal and turgor normal Neuro General: oriented to person, oriented to place, oriented to time, patient oriented x3, gait normal, tone normal, moves all extremities, Normal light touch and pain sensation, no meningeal signs, no focal motor deficits and CN's II-XI intact bilaterally Extrem General: Yes normal to inspection and Yes full ROM Psych Appearance: grossly normal, well kempt and not disheveled Medical Decision Making Medical Decision Making [facility] Narrative: 67-year-old male presents to the ED rectal bleeding for 1 week. Patient denies any abdominal pain, nausea, vomiting, chest pain, shortness of breath weakness. Patient states history of hemorrhoids. Patient denies any pain on defecation. Patient states stool is brown. Rectal exam negative for hemorrhaging. 4:48pm: No need for abdominal imaging patient H and H is stable. Stool guaiac positive. Patient has no abdominal pain. Vital signs are stable. Patient i nformed to follow-up outpatient with colonoscopy. Differential Diagnosis Differential Diagnoses: The differential diagnosis associated with the presentation includes (GI Bleed, Hemmhroids, Anal fissure, ) Admission/Observation Consideration of admission/observation: Escalation of care including admission/observation considered Lab Data [facility] Lab Attestation statement: I reviewed the patient's lab results. 03/08/23 11:10 03/08/23 11:10 Labs: Lab Results 03/08/23 03/08/23 03/08/23 Range/Units 11:10 11:10 14:17 WBC 9.2 (4.8-10.8) X10*3/uL RBC 4.12 L (4.60-5.80) X10*6/uL Hgb 12.1 L (14.0-18.0) g/dl Hct 36.0 L (42.0-52.0) % MCV 87.4 (80.0-98.0) fL MCH 29.4 (27.0-33.0) pg MCHC 33.6 (31.0-36.0) g/dl RDW 13.2 (11.0-16.0) % Plt Count 280 (160-400) X10*3/uL MPV 9.8 (9.4-12.4) fL Immature Gran % (Auto) 0.3 (0.0-0.4) % Neut % (Auto) 58.7 (45-73) % Lymph % (Auto) 31.6 (20-40) % [facility] % (Auto) 6.9 (2-11) % Eos % (Auto) 2.1 (0-4) % Baso % (Auto) 0.4 (0-2) % Lymph # (Auto) 2.9 (1.2-4.9) X10*3/uL [facility] # (Auto) 0.6 (0.1-1.2) X10*3/uL Eos # (Auto) 0.2 (0.0-0.4) X10*3/uL Baso # (Auto) 0.0 (0.0-0.2) X10*3/uL Abs Immat Gran (auto) 0.03 (0.00-0.03) X10*3/uL Absolute Neuts (auto) 5.4 (2.0-8.3) x10*3/uL Absolute Nucleated RBC 0.000 (0.0-0.012) X10*3/uL Nucleated RBC % (auto) 0.0 (0.0-0.2) /100WBC Sodium 138 (135-145) mmol/L Potassium 5.0 (3.3-5.1) mmol/L Chloride 105 (96-108) mmol/L Carbon Dioxide 20 L (22-29) mmol/L Anion Gap 18 (12-20) BUN 20 H (9-16) mg/dL Creatinine 1.27 (0.5-1.4) mg/dL Estim Creat Clear Calc 52.5 Estimated GFR 57 POC Glucose (60-115) mg/dL Random Glucose 278 H (60-115) mg/dL Calcium 10.1 (8.4-10.2) mg/dL Total Bilirubin 0.2 (0.0-1.0) mg/dL AST 18 (5-37) U/L ALT 14 (0-40) U/L Alkaline Phosphatase 38 L (39-117) U/L Total Protein 7.9 (6.5-8.0) g/dL Albumin 4.2 (3.5-5.0) g/dL Stool Occult Blood POSITIVE (NEGATIVE) 03/08/23 Range/Units 15:40 WBC (4.8-10.8) X10*3/uL RBC (4.60-5.80) X10*6/uL Hgb (14.0-18.0) g/dl Hct (42.0-52.0) % MCV (80.0-98.0) fL MCH (27.0-33.0) pg MCHC (31.0-36.0) g/dl RDW (11.0-16.0) % Plt Count (160-400) X10*3/uL MPV (9.4-12.4) fL Immature Gran % (Auto) (0.0-0.4) % Neut % (Auto) (45-73) % Lymph % (Auto) (20-40) % [facility] % (Auto) (2-11) % Eos % (Auto) (0-4) % Baso % (Auto) (0-2) % Lymph # (Auto) (1.2-4.9) X10*3/uL [facility] # (Auto) (0.1-1.2) X10*3/uL Eos # (Auto) (0.0-0.4) X10*3/uL Baso # (Auto) (0.0-0.2) X10*3/uL Abs Immat Gran (auto) (0.00-0.03) X10*3/uL Absolute Neuts (auto) (2.0-8.3) x10*3/uL Absolute Nucleated RBC (0.0-0.012) X10*3/uL Nucleated RBC % (auto) (0.0-0.2) /100WBC Sodium (135-145) mmol/L Potassium (3.3-5.1) mmol/L Chloride (96-108) mmol/L Carbon Dioxide (22-29) mmol/L Anion Gap (12-20) BUN (9-16) mg/dL Creatinine (0.5-1.4) mg/dL Estim Creat Clear Calc Estimated GFR POC Glucose 112 (60-115) mg/dL Random Glucose (60-115) mg/dL Calcium (8.4-10.2) mg/dL Total Bilirubin (0.0-1.0) mg/dL AST (5-37) U/L ALT (0-40) U/L Alkaline Phosphatase (39-117) U/L Total Protein (6.5-8.0) g/dL Albumin (3.5-5.0) g/dL Stool Occult Blood (NEGATIVE) External Record Review External record reviewed: Other (Prior ED visit) Tests considered The following testing was considered but not selected: CT Abdomen Discharge Plan Discharge Clinical Impression: Rectal bleeding Patient Disposition: Home, Self-Care Instructions: Hemorrhoids (ED), Rectal Bleeding (ED) Additional Instructions: Por favor, lawrence un seguimiento con harvey proveedor de atenci?n primaria. Necesitar? stewart derivaci?n a un gastroenter?logo para stewart colonoscopia por sangrado rectal. Tienes an?lisis de mitch/an?lisis estables. Regrese al servicio de urgencias de inmediato por cualquier debilidad, dolor en el pecho, dificultad para respirar, mareos, dolor abdominal, sangrado rectal profuso, v?mitos con mitch, mitch en la orina, fiebre, escalofr?os o cualquier otro s?ntoma preocupante. Prescriptions: New hydrocortisone acetate [Anusol-HC] 25 mg suppository 25 mg VA BEDTIME Qty: 12 0RF No Action amlodipine 2.5 mg tablet 2.5 mg PO DAILY aspirin [Adult Aspirin Regimen] 81 mg tablet,delayed release (DR/EC) 81 mg PO DAILY clopidogrel [Plavix] 75 mg tablet 75 mg PO DAILY gabapentin 100 mg capsule 100 mg PO DAILY insulin glargine [Lantus U-100 Insulin] 100 unit/mL solution 30 unit subcut DAILY lisinopril 40 mg tablet 40 mg PO DAILY metformin 1,000 mg tablet 1,000 mg PO BID metoprolol succinate 50 mg tablet extended release 24 hr 50 mg PO DAILY rosuvastatin 40 mg tablet 40 mg PO DAILY sildenafil [Viagra] 100 mg tablet 100 mg PO DAILY PRN Rx Instructions: administer 30 minutes to 4 hours before activity valacyclovir 1 gram tablet 1,000 mg PO TID 7 Days Qty: 21 0RF oxycodone 5 mg tablet 5 mg PO Q6H PRN (Reason: pain) Qty: 10 0RF Rx Instructions: Partial Fill upon patient request. omeprazole 20 mg capsule,delayed release(DR/EC) 20 mg PO BID acetaminophen 500 mg tablet 1,000 mg PO Q8H PRN lorazepam 0.5 mg tablet 0.5 mg PO DAILY PRN (Reason: anxiety) Qty: 2 0RF Rx Instructions: 1 tab 30 mins prior to exam, 2nd tab prn. Do not drive while taking this medication Referrals: [facility] Gastroenterology Services [Provider Group] (Rectal Bleeding for one week) Stand Alone Forms: Work/School Release Interventions: ED Discharge Assessment Last Done: 03/08/23 17:40 Discharge Date/Time: 03/08/23 17:41 Print Language: Lithuanian
[2023-03-08 15:44] LABS: Glucose, Whole Blood 112 mg/dL (60-115)
[2023-03-08 16:29] LABS: Alanine Aminotransferase 14 U/L (0-40); Albumin Level 4.2 g/dL (3.5-5.0); Alkaline Phosphatase 38 U/L (39-117); Anion Gap 18 (12-20); Aspartate Amino Transferase 18 U/L (5-37); Bilirubin Total 0.2 mg/dL (0.0-1.0); Blood Urea Nitrogen 20 mg/dL (9-16); Calcium 10.1 mg/dL (8.4-10.2); Carbon Dioxide 20 mmol/L (22-29); Chloride 105 mmol/L (96-108); Creatinine Clr Calc Pharmacy 52.5; Estimated Glomerular Filt Rate 57; Glucose Random 278 mg/dL (60-115); Sodium 138 mmol/L (135-145); Total Protein 7.9 g/dL (6.5-8.0)
== END 2023-03-08 17:41 | disposition home or self-care (01) ==
PROVIDERS: Physician Assistant; Emergency Provider Emergency Medicine; PCP Internal Medicine
DX: K62.5 Hemorrhage of anus and rectum (principal); E11.9 Type 2 diabetes mellitus without complications; I10 Essential (primary) hypertension; E78.5 Hyperlipidemia, unspecified; Z87.891 Personal history of nicotine dependence; Z79.899 Other long term (current) drug therapy; Z79.4 Long term (current) use of insulin
CPT/HCPCS: 36415; 80053; 82272; 82947; 85025; 99283; 99284

== ENCOUNTER 2023-04-02 12:25 | Outpatient (AMB) | payer OTHER, SELFPAY ==
--- NOTE | 2023-04-02 12:38 | A.OFFVIS_ITS ---
Intake Vital Signs 04/02/23 12:39 Height 5 ft 4 in Weight 167 lb 1.766 oz BMI 28.7 BP 140/82 H Blood Pressure Location Lt brachial Position Sitting Pulse 70 Intake Visit Reasons: Colonoscopy Screening Intake Note: Huber presents in office as new.patient for a colonoscopy screening. PT CC: pt reports having [id number] rectal bleeding, constipation pt denies any other GI Issues Paint Prep Technician Required: Yes Paint Prep Technician Language: Sami Accompanied by: Significant Other Allergies ibuprofen Adverse Reaction (Intermediate, Verified 04/02/23 12:39) Swelling HPI Colonoscopy Screening HPI Details 67 year old? male with past medical history of hyperlipidemia, hypertension, diabetes, ACSD, constipation, CABG is here today for pre colonoscopy screening.? Patient was sent to us by his PCP.? Patient reports last colonoscopy in 2013 in [place]. As far as patient remembers he had no polyps. Patient denies any gastrointestinal symptoms in the past or at present.? However patient does report of being very constipated. Reports a rectal bleed in the past month. His constipation is worse now. Last bowel movement over a week ago. Denies any personal or family history of gastrointestinal disease, colon polyps, or cancer.? Denies history of difficulty with sedation or anesthesia in the past.? Negative for history of sleep apnea.? Denies any history of cardiac, renal, pulmonary, or hepatic disease.?? No history of infectious? diseases like hepatitis A, B, C, HIV or tuberculosis.? Patient is on low-dose aspirin and Plavix. Patient has a history of bypass in 2011. Last seen broadcast producer last year. Has the appointment for follow-up in April. Patient reported chest pain, states that feels more like costochondritis at the surgical site. Patient denies chest pressure, presyncope, syncope, edema, SOB with or without exertion. Patient has an appointment with his broadcast producer on April 11. Will up for risk stratification [facility] Medical History Alcohol dependence with unspecified alcohol-induced disorder Anxiety and depression Atherosclerotic cardiovascular disease Chronic left shoulder pain Erectile dysfunction Essential hypertension Hyperlipidemia, unspecified Osteoarthritis of hips, bilateral Stomach ulcer Type 2 diabetes mellitus with unspecified complications Surgical History S/P CABG (coronary artery bypass graft) Family History Father No problems noted. Mother Breast cancer Sister No problems noted. Social History Patient Tobacco Use Status: Former Tobacco user Review of Systems Const Denies weight gain and Denies weight loss ENT Reports no additional complaints, Denies dysphagia and Denies odynophagia Card Reports no additional complaints and Reports chest pain (Occasional at rest and with activity) Resp Reports no additional complaints GI Denies abdominal pain, Denies belching, Denies melena, Denies bloating, Reports hematochezia, Reports constipation, Denies dysphagia, Denies excessive flatus, Denies dyspepsia, Denies heartburn, Denies diarrhea, Denies loose stools, Denies nausea, Denies odynophagia and Denies vomiting Reports no additional complaints Musc Reports no additional complaints Neuro Reports no additional complaints Psych Reports no additional complaints Endo Reports no additional complaints Physical Exam Vital Signs: Last Vital Signs Pulse 70 04/02/23 12:39 BP 140/82 H 04/02/23 12:39 BMI result Body Mass Index 28.7 Const General: healthy appearing, no acute distress and well developed Nutritional Appearance: obese Orientation/consciousness: patient oriented x3 HEENT Head: Yes normal to inspection, Yes normocephalic and Yes atraumatic Face and sinus: Yes normal facial exam Mouth: Normal oral and palatal mucosa present Throat: Yes posterior oropharynx normal, Yes tonsils normal and Yes uvula midline Eyes General: appearance normal, both eyes and all related structures Neck Neck: Yes normal visual inspection, Yes full ROM and Yes trachea midline Thyroid: Thyroid normal Chest Other: surgical vertical scar to mid chest Resp Effort & Inspection: normal respiratory effort, able to speak in complete sentences, no tracheal deviation and symmetric chest movement Auscultation: clear to auscultation bilaterally Cardio Rate: regular rate Heart sounds: S1 normal heart sound present and S2 normal heart sound present GI Inspection: Yes normal to inspection, No distended and Yes obesity Palpation (GI): Soft to palpation, not firm, nontender and No hepatosplenomegaly present Auscultation: normal bowel sounds General: Yes no CVA tenderness Back/Spine/Pelvis Back: no CVA tenderness Skin General skin exam: elasticity normal, turgor normal and dry skin Neuro General: patient oriented x3 Psych Appearance: grossly normal Mental Status: mental status grossly normal Speech and movement: Normal speech and movement present Assessment & Plan Assessment & Plan (1) Screen for colon cancer: Code(s): Z12.11 - Encounter for screening for malignant neoplasm of colon Plan: Patient will going to see his broadcast producer. Patient will need to be cleared before the procedure. He is constipated with no bowel movements for several days. Patient will start taking MiraLax and Senokot. He will call us in 2 weeks if he will continue to be constipated. We can try Dulcolax 10. The im portance of good bowel prep discussed with patient. (2) Chronic idiopathic constipation: Code(s): K59.04 - Chronic idiopathic constipation Plan: MiraLax every morning and Senokot in the evening. Patient was encouraged to increase fluid intake and activity to promote better bowel motility. Patient will return in 5 weeks to discuss going for colonoscopy. Patient is agreeable to this plan and verbalizes understanding of instructions. He was given the opportunity to ask questions and all questions answered. Thank you for allowing me to participate in his care Medications: New sennosides (Natural Senna Laxative) 17.2 mg (2 x 8.6 mg) PO BEDTIME 60 tabs 3RF constipation K59.00 - Constipation, unspecified Coding Level of Care Code New Pt Level 3 (36194) Diagnoses Screen for colon cancer Z12.11 Chronic idiopathic constipation K59.04 Time Spent (min) 40 Comment 30 minutes spent with patient and additional 10 minutes spent reviewing his records
[2023-04-02 12:39] VITALS: BP 140/82; PULSE 70; BMI 28.7
== END 2023-04-02 13:16 | disposition home or self-care (01) ==
PROVIDERS: PCP Internal Medicine; Visit Provider Nurse Practitioner Family
DX: K59.04 Chronic idiopathic constipation (principal); Z12.11 Encounter for screening for malignant neoplasm of colon
CPT/HCPCS: 99203

== ENCOUNTER → 2023-04-02 12:25 | Outpatient (BNVA) | payer OTHER, SELFPAY | PROVIDERS: PCP Internal Medicine; Visit Provider Nurse Practitioner Family | DX: K59.04 Chronic idiopathic constipation (principal) | CPT/HCPCS: 99202 ==

== ENCOUNTER 2023-04-04 11:27 | Outpatient (AMB) | payer OTHER, SELFPAY ==
--- NOTE | 2023-04-04 11:31 | MHC.OFFVIS ---
Intake Vital Signs 04/04/23 11:32 Height 5 ft 4 in Weight 167 lb BMI 28.7 Intake Visit Reasons: OV- LT shoulder pain Intake Note: Huber is a 67 year old left hand dominant male who presents today to discuss possible surgical intervention of his left shoulder pain. possible RTC repair and labral debridement per TM. Allergies ibuprofen Adverse Reaction (Intermediate, Verified 04/02/23 12:39) Swelling HPI OV- LT shoulder pain HPI Details Huber is a 67 year old Diabetic man who presents to discuss treatment for his left shoulder pain & instability. He complains of pain constantly, which is worse with activity. He has recently returned to PT earlier this month. He was D/C from PT previously due to non-compliance and poor attendance. He is a Diabetic, with a Hx of CABG & ETOH abuse. He is on Plavix. [facility] Medical History Alcohol dependence with unspecified alcohol-induced disorder Anxiety and depression Atherosclerotic cardiovascular disease Chronic left shoulder pain Erectile dysfunction Essential hypertension Hyperlipidemia, unspecified Osteoarthritis of hips, bilateral Stomach ulcer Type 2 diabetes mellitus with unspecified complications Surgical History S/P CABG (coronary artery bypass graft) Family History Father No problems noted. Mother Breast cancer Sister No problems noted. Social History Patient Tobacco Use Status: Former Tobacco user Review of Systems Const All systems reviewed & are unremarkable except as noted in HPI and below Physical Exam Vital Signs: BMI result Body Mass Index 28.7 Const General: no acute distress, alert and awake Orientation/consciousness: patient oriented x3 HEENT Head: Yes normocephalic and Yes atraumatic Eyes EOM: EOMs intact bilaterally Resp Effort & Inspection: normal respiratory effort and able to speak in complete sentences Cardio Jugular venous distension: no JVD Skin General skin exam: turgor normal Rashes: no rashes Neuro General: patient oriented x3 Extrem Other: Left Shoulder: + H&N [ ] empty can Psych Appearance: grossly normal Affect: normal affect Attitude: cooperative Results Reviewed Results Reviewed: I personally reviewed relevant radiographs & MR images -Mild supraspinatus tendinosis with irregular bursal surface fraying distally measuring 1.5cm in AP dimension. Minimal infraspinatus tendinosis. No full thickness rotator cuff tendon tear -Moderate ACJ OA with moderate subacromial spurring -Non-displaced undersurface tear of the superior labrum. No anterior or anteroinferior labral tear -Chronic hill-Sachs deformity at the posterior aspect of the humeral head associated with marrow edema. No acute osseous abnormality -Mild GH OA -Mild degenerative changes glenohumeral joint and acromioclavicular joint. -No visible rotator cuff calcifications. -Suspect small chronic Hill-Sachs lesion posterior humeral head related to prior dislocation. Assessment & Plan Assessment & Plan (1) Left rotator cuff tear: Code(s): M75.102 - Unspecified rotator cuff tear or rupture of left shoulder, not specified as traumatic Plan: This is a 67 year old man with a left RTC tear. He has pain with overhead activity and at night. He has tried PT and injections and activity modification but continues to be unable to return to pain free activitites.. He has struggled to attend PT consistently in the past and has recently started a new course this month. I discussed his diagnosis and treatment options. I recommend a left shoulder with possible RTC repair. MRI reveals a high grade partial thickness tear. I discussed the risks, benefits, and alternatives including, but not limited to, the risk of pain, infection, stiffness, need for further surgery as well as potential medical complications such as blood clots, pulmonary embolism and cardiac complications. I discussed the recovery timeline and process as well as the importance of PT. Huber will need medical clearance to schedule this procedure. He is a Diabetic with a hx of CABG, and ETOH. He currently takes Plavix. (2) Type 2 diabetes mellitus with unspecified complications: Code(s): E11.8 - Type 2 diabetes mellitus with unspecified complications (3) Status post aorto-coronary artery bypass graft: Code(s): Z95.1 - Presence of aortocoronary bypass graft Plan Scribed for Spike Barbosa MD by Kavin Carmichael, healthcare or medical, on 04/04/23 at 11:40 AM, EST. Coding Level of Care Code Est Pt Level 4 (39608) Diagnoses Left rotator cuff tear M75.102 Type 2 diabetes mellitus with unspecified complications E11.8 Status post aorto-coronary artery bypass graft Z95.1
[2023-04-04 11:32] VITALS: BMI 28.7
== END 2023-04-04 12:12 | disposition home or self-care (01) ==
PROVIDERS: PCP Internal Medicine; Visit Provider Orthopaedic Surgery
DX: M75.102 Unspecified rotator cuff tear or rupture of left shoulder, not specified as traumatic (principal)
CPT/HCPCS: 99214

== ENCOUNTER → 2023-04-04 11:27 | Outpatient (BNVA) | payer OTHER, SELFPAY | PROVIDERS: PCP Internal Medicine; Visit Provider Orthopaedic Surgery | DX: M75.102 Unspecified rotator cuff tear or rupture of left shoulder, not specified as traumatic (principal); E11.8 Type 2 diabetes mellitus with unspecified complications; Z95.1 Presence of aortocoronary bypass graft | CPT/HCPCS: 99212 ==

== ENCOUNTER 2023-04-11 13:15 | Outpatient (AMB) | payer OTHER, SELFPAY ==
[2023-04-11 13:32] VITALS: BP 120/62; PULSE 65; BMI 28.9
--- NOTE | 2023-04-11 13:32 | MHC.OFFVIS ---
Intake Vital Signs 04/11/23 13:32 Height 5 ft 4 in Weight 168 lb 6.931 oz BMI 28.9 BP 120/62 Blood Pressure Location Lt brachial Position Sitting Pulse 65 Intake Visit Reasons: Preop /colonoscopy/ PCP req ov- chest pain/ Intake Note: pre op Tower Supervisor Required: Yes Tower Supervisor Language: Licensed Retail Supervisor Name: Alesha [id number] Accompanied by: Spouse Allergies ibuprofen Adverse Reaction (Intermediate, Verified 04/11/23 13:35) Swelling Medication List - Last Reconciled 04/11/23 by Vamsi Mendiola MD acetaminophen 1,000 mg PO Q8H PRN amlodipine 2.5 mg PO DAILY bisacodyl (Dulcolax (bisacodyl)) 10 mg (2 x 5 mg) PO ONCE 1 day clopidogrel (Plavix) 75 mg PO DAILY docusate sodium 100 mg PO DAILY gabapentin 100 mg PO DAILY hydrocortisone 2.5% (Proctosol HC) 1 appl HI BID-QID PRN hydrocortisone acetate (Anusol-HC) 25 mg HI BEDTIME insulin glargine (Lantus U-100 Insulin) 30 units subcut DAILY lisinopril 40 mg PO DAILY lorazepam 0.5 mg PO DAILY PRN metformin 1,000 mg PO BID metoprolol succinate ER 50 mg PO DAILY omeprazole 20 mg PO BID oxycodone 5 mg PO Q6H PRN polyethylene glycol 3350 (Miralax) 238 grams PO ONCE rosuvastatin 40 mg PO DAILY sennosides (Natural Senna Laxative) 17.2 mg (2 x 8.6 mg) PO BEDTIME sildenafil (Viagra) 100 mg PO DAILY PRN valacyclovir 1,000 mg PO TID 7 days HPI HPI Comments History of Present Illness Details Huber returns for follow-up. In the past, was seen regarding coronary disease. He underwent coronary artery bypass surgery in 2011. Multiple medical comorbidities including diabetes, hypertension, dyslipidemia among others. He had the bypass surgery [place] and then moved to [place] and then more recently he is living here. He states he gets chronic chest pains and he was told that it is all related to bone pain from sternotomy. Nothing clearly exertional but he does not do much either. He states that is because of back issues. No new symptoms since last seen. He needs to go for colonoscopy. [facility] Medical History Alcohol dependence with unspecified alcohol-induced disorder Anxiety and depression Atherosclerotic cardiovascular disease Chronic left shoulder pain Erectile dysfunction Essential hypertension Hyperlipidemia, unspecified Osteoarthritis of hips, bilateral Stomach ulcer Type 2 diabetes mellitus with unspecified complications Surgical History S/P CABG (coronary artery bypass graft) Family History Father No problems noted. Mother Breast cancer Sister No problems noted. Social History Patient Tobacco Use Status: Former Tobacco user Review of Systems Const Denies weakness ENT Denies dizziness Card Denies chest pain, Denies chest pain with activity, Denies syncope, Denies rapid heart rate, Denies pedal edema, Denies edema, Denies leg edema, Denies lightheadedness, Denies palpitations, Denies dyspnea, Denies dyspnea on exertion and Denies orthopnea Resp Denies cough, Denies dyspnea and Denies dyspnea on exertion GI Denies hematochezia and Denies change in stool character Musc Denies abnormal gait, Denies muscle cramps, Denies muscle weakness, Denies numbness, Denies radiating pain into limb and Denies tingling Neuro Denies abnormal gait, Denies dizziness, Denies syncope, Denies numbness, Denies tingling and Denies weakness Endo Denies palpitations Physical Exam Vital Signs: Last Vital Signs Pulse 65 04/11/23 13:32 BP 120/62 04/11/23 13:32 BMI result Body Mass Index 28.9 Const General: comfortable and no acute distress Orientation/consciousness: patient oriented x3 HEENT Other: Unremarkable Head: Yes normal to inspection Neck Neck: Yes normal visual inspection Chest Chest palpation & inspection: normal inspection of the chest Resp Auscultation: clear to auscultation bilaterally Cardio Palpation: normal PMI Heart sounds: S1 normal heart sound present, S2 normal heart sound present, no gallops, no murmurs and no rubs GI Palpation (GI): Soft to palpation Back/Spine/Pelvis Other: unremarkable Skin General skin exam: no rashes or lesions noted Neuro General: patient oriented x3 Extrem General: Yes normal to inspection Psych Mental Status: mental status grossly normal Assessment & Plan Assessment & Plan (1) Atherosclerotic cardiovascular disease: Code(s): I25.10 - Atherosclerotic heart disease of [place] coronary artery without angina pectoris Plan: In the recent echocardiogram, low normal LVEF, 55%. Moderate diastolic dysfunction. As it has been more than 10 years since time of bypass surgery, we can get myocardial perfusion imaging study. He is walking with a cane and has minimal exercise tolerance and hence will need to get a pharmacological stress test with Lexiscan. (2) Status post aorto-coronary artery bypass graft: Code(s): Z95.1 - Presence of aortocoronary bypass graft Plan: Chronic sternotomy pain. Otherwise, generally recovered. (3) Type 2 diabetes mellitus with unspecified complications: Code(s): E11.8 - Type 2 diabetes mellitus with unspecified complications Plan: He is on insulin, metformin. Per PCP note, last hemoglobin A1c is 7.9. Less than optimal. (4) Essential hypertension: Code(s): I10 - Essential (primary) hypertension Plan: He is on full dose of lisinopril 40 mg daily on a small dose of amlodipine at 2.5 mg daily. Stable. No changes. (5) Hyperlipidemia, unspecified: Code(s): E78.5 - Hyperlipidemia, unspecified Qualifiers: Hyperlipidemia type: unspecified Qualified Code(s): E78.5 - Hyperlipidemia, unspecified Plan: On rosuvastatin 40 mg daily. Do not have any recent lipids. Most recent LDL is 71 mg/dL. (6) Preoperative cardiovascular examination: Code(s): Z01.810 - Encounter for preprocedural cardiovascular examination Plan: Plan for colonoscopy noted. Likely will be intermediate risk. May complete the perfusion imaging as ordered. Unless any concerning findings, may proceed. Orders: Orders NM cardiolite stress test Today I25.10 - Atherosclerotic heart disease of [place] coronary artery without angina pectoris, R07.2 - Precordial pain CA lexiscan stress w eder Today I25.10 - Atherosclerotic heart disease of [place] coronary artery without angina pectoris Coding Level of Care Code Est Pt Level 4 (94263) Diagnoses Atherosclerotic cardiovascular disease I25.10 Status post aorto-coronary artery bypass graft Z95.1 Type 2 diabetes mellitus with unspecified complications E11.8 Essential hypertension I10 Hyperlipidemia, unspecified hyperlipidemia type E78.5 Hyperlipidemia type: unspecified Preoperative cardiovascular examination Z01.810
== END 2023-04-11 13:51 | disposition home or self-care (01) ==
PROVIDERS: PCP Internal Medicine; Referring Provider Internal Medicine; Visit Provider Internal Medicine
DX: I25.10 Atherosclerotic heart disease of native coronary artery without angina pectoris (principal); Z95.1 Presence of aortocoronary bypass graft; E11.8 Type 2 diabetes mellitus with unspecified complications; I10 Essential (primary) hypertension; E78.5 Hyperlipidemia, unspecified; Z01.810 Encounter for preprocedural cardiovascular examination
CPT/HCPCS: 99214

== ENCOUNTER → 2023-04-11 13:15 | Outpatient (BNVA) | payer OTHER, SELFPAY | PROVIDERS: PCP Internal Medicine; Referring Provider Internal Medicine; Visit Provider Internal Medicine | DX: Z01.810 Encounter for preprocedural cardiovascular examination (principal); R07.2 Precordial pain; I25.10 Atherosclerotic heart disease of native coronary artery without angina pectoris; I10 Essential (primary) hypertension; E11.9 Type 2 diabetes mellitus without complications; E78.5 Hyperlipidemia, unspecified; Z95.1 Presence of aortocoronary bypass graft; Z79.891 Long term (current) use of opiate analgesic | CPT/HCPCS: 99212 ==

== ENCOUNTER 2023-04-12 13:00 | Outpatient (RCR) | payer OTHER, SELFPAY ==
--- NOTE | 2023-03-22 13:33 | MHC.PT.EP ---
[facility] [place] Office [place] Office [place] Office [address] Eliazar Ji [address] [phone] F: [phone] F: [phone] F: [phone] F: [phone] Physical Therapy Plan of Care Date of Evaluation: Date of Surgery: N/A Diagnosis: M75.82 other shoulder lesions, left shoulder (RL) M25.312 other instability, left shoulder Assessment: pt is a 67 y/o male presenting to physical therapy w/ referring diagnosis of M75.82 other shoulder lesions, left shoulder, M25.312 other instability, left shoulder. He was here for PT back in December and January 2023 where he was discharged for non-compliance. He was explained to w/ highway landscape architect he needs to show better commitment to this program if he is to remain on program. He verbalized understanding. Impairments include pain, decreased range of motion, decreased strength, impaired functional mobility, impaired postural awareness, and altered ambulation mechanics. pt is a fair candidate for skilled PT due to age, potential remediation of impairments, typical disease/condition progression and prognosis, comorbidities, and motivation. pt would benefit from skilled PT intervention to provide a tailored strengthening and stretching exercise program, functional training, gait training, postural re-training, neuromuscular re-education, modalities as needed for pain, equipment safety demonstration. Frequency and Duration: The patient will be seen 2x/wk for 4 wks Short Term Goals: pt will be I w/ HEP to promote self-management of condition. pt will improve L shoulder flexion and abduction by at least 10 degrees to promote ease in overhead lifting. Photo Booth Operator Goals: pt will improved L scapulohumeral rhythm w/ abduction to reduce scapular winging w/ lifting. 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 Treatment Plan: Modalities to reduce pain, spasms and effusion. Manual therapy to restore motion and function. Therapeutic exercise to improve strength and flexibility. Neuromuscular re-education for posture and balance. Therapeutic activities to return to functional activities of daily living. Electronically signed by: Nat Del Rosario PT, DPT Please sign and return to therapist. Thank you for your referral.
--- NOTE | 2023-04-23 10:45 | MHC.PT.DC ---
[facility] [place] Office [place] Office [place] Office [address] Eliazar Ji 140 [facility] [phone] F: [phone] F: [phone] F: [phone] F: [phone] Physical Therapy Discharge Report Diagnosis: M75.82 other shoulder lesions, left shoulder (RL) M25.312 other instability, left shoulder Date of Surgery: N/A Date of Evaluation: 03/22/23 Date of Discharge: 04/23/23 Treatments to Date: 3 Cancellations to Date: 2 No Shows to Date: 2 Discharge Status: Visit Non-compliance Discharge Summary: The patient no showed his last scheduled appointment. Per his records it appears he is preparing for shoulder surgery. He is discharged from this physical therapy plan of care at this time. Electronically signed by: Nat Del Rosario PT, DPT Please sign and return to therapist. Thank you for your referral.
== END 2023-04-23 10:45 | disposition home or self-care (01) ==
LOC: HO.PT 13:00
PROVIDERS: PCP Internal Medicine; Visit Provider Physician Assistant
DX: M75.82 Other shoulder lesions, left shoulder (principal); M25.312 Other instability, left shoulder
CPT/HCPCS: 97110; 97140; 97162

== ENCOUNTER 2023-04-15 10:54 | Outpatient (REF) | payer OTHER, SELFPAY ==
[2023-04-15 13:14] LABS: MANUAL DIFF FLAG NO
[2023-04-15 13:32] LABS: Basophils Percent Auto 0.5 % (0-2); Eosinophils Absolute Auto 0.2 X10*3/uL (0.0-0.4); Eosinophils Percent Auto 1.9 % (0-4); Hematocrit 36.7 % (42.0-52.0); Hemoglobin 11.8 g/dl (14.0-18.0); Imm Gran Abs Auto 0.07 X10*3/uL (0.00-0.03); Imm Gran Pct Auto 0.8 % (0.0-0.4); Lymphocytes Percent Auto 36.1 % (20-40); Mean Corpuscular HGB Conc 32.2 g/dl (31.0-36.0); Mean Corpuscular Hemoglobin 29.6 pg (27.0-33.0); Mean Platelet Volume 10.9 fL (9.4-12.4); Monocytes Absolute Auto 0.5 X10*3/uL (0.1-1.2); Monocytes Percent Auto 6.5 % (2-11); Neutrophils Absolute Auto 4.5 x10*3/uL (2.0-8.3); Neutrophils Percent Auto 54.2 % (45-73); Platelet Count 285 X10*3/uL (160-400); Red Blood Count 3.99 X10*6/uL (4.60-5.80); Red Cell Distribution Width 13.4 % (11.0-16.0); White Blood Count 8.4 X10*3/uL (4.8-10.8)
== END 2023-04-15 10:55 | disposition home or self-care (01) ==
LOC: HO.HHCL 10:54
PROVIDERS: Visit Provider Internal Medicine
DX: K62.5 Hemorrhage of anus and rectum (principal)
CPT/HCPCS: 36415; 85025

== ENCOUNTER → 2023-04-18 09:25 | Outpatient (REF) | payer OTHER, SELFPAY ==
--- NOTE | ~2023-04-18 | NM_ITS ---
Lexiscan Myocardial perfusion study Indication: Coronary disease, history of bypass surgery, assess for ischemia Technique: The patient was brought in for a Lexiscan perfusion study on 04/18/2023 and was injected 0.4 mg of Lexiscan intravenously. Within a minute of this injection 25 mCi of sestamibi was given intravenously. Images were obtained using the SPECT gamma camera interlaced with the gating device. Images were obtained in supine position. Resting perfusion study was performed on 04/19/2023. Patient was administered 25 mCi of sestamibi intravenously at rest. Images were then obtained in supine position. Images were processed with the software and compared side to side in short axis, horizontal long axis and vertical long axis views. Total DLP 98mGy-cm. Findings: Raw acquisition reviewed. The stress perfusion study showed diminished tracer uptake in the basal part of inferolateral wall. There is improvement with CT attenuation correction suggestive of diaphragmatic attenuation artifact. The gated study shows normal LV systolic function with calculated LVEF of 67%. LV cavity is normal in size. The gated study shows normal wall thickening and contraction of segments. Resting study shows diminished tracer uptake in the basal part of inferolateral wall. There is improvement with CT attenuation correction.. Gating at rest reveals normal wall motion with ejection fraction at 75%. The findings are consistent with no clear reversible defects. Fixed basal inferolateral defect, probably diaphragmatic attenuation artifact but cannot exclude prior infarct. NM/NM cardiolite stress test Impression: 1. Myocardial perfusion imaging study shows no evidence of ischemia. Either diaphragmatic attenuation artifact or nontransmural infarct in the basal part of inferolateral wall. 2. Gated LVEF is 67% during stress and 75% during rest. 3. Transient ischemic dilatation not present. EKG component of the test reported separately.
--- NOTE | 2023-04-18 09:28 | CA_ITS ---
Acquisition Time: 2023-04-18 10:46:35 Total Exercise Time: 00:02:00 Test Indications: CAD Medications: SEE H Protocol: LEXISCAN Max HR: 100 BPM 65% of Pred: 153 BPM Max BP: 144/084 mmHG Max Work Load: 1.0 METS Pharmacolgoical stress test with Lexiscan injection while sitting and slowly kicking his legs, without anginal symptoms, with i solated PVC, with normotensive response to injection, with nondiagnositic EKGs. Nuclear images pending. Test reviewed with Dr. Mendiola. Referred By: Vamsi Mendiola Overread By: Gill Salinas
== END ==
LOC: HO.CARD 09:25
PROVIDERS: PCP Internal Medicine; Visit Provider Internal Medicine
DX: R07.2 Precordial pain (principal); I25.10 Atherosclerotic heart disease of native coronary artery without angina pectoris
CPT/HCPCS: 78452; 93017; A9500; J0280; J2785

== ENCOUNTER → 2023-04-18 09:28 | Outpatient (BNV) | payer OTHER, SELFPAY | PROVIDERS: PCP Internal Medicine; Visit Provider Nurse Practitioner | DX: I25.10 Atherosclerotic heart disease of native coronary artery without angina pectoris (principal) | CPT/HCPCS: 78452; 93016; 93018 ==

== ENCOUNTER 2023-04-25 09:24 | Outpatient (AMB) | payer OTHER, SELFPAY ==
[2023-04-25 09:30] VITALS: BMI 28.8
--- NOTE | 2023-04-25 09:30 | A.OFFVIS_ITS ---
Intake Vital Signs 04/25/23 09:30 Height 5 ft 4 in Weight 168 lb BMI 28.8 Intake Visit Reasons: Pre Op - Lt Shoulder 05/08/23 NE Intake Note: Huber is a 67 year old male who presents today for a pre op appointment for a left shoulder , 05/08/23 NE. Allergies ibuprofen Adverse Reaction (Intermediate, Verified 04/25/23 09:30) Swelling HPI Pre Op - Lt Shoulder 05/08/23 NE HPI Details 67-year-old male, who is Latvian speakin g, presents in the office today for his preoperative history and physical exam prior to a left shoulder arthroscopy to be performed on 05/08/[address] Barbosa. He was seen by his dining room supervisor and was told everything came out good . Patient has an allergy history, as follows: -Ibuprofen; edema Patient is currently taking, as follows: -Acetaminophen 1,000 mg Q8H PRN -Amlodipine 2.5 mg PO daily -Bisacodyl 10 mg PO once -Clopidogrel (Plavix) 75 mg PO daily -Docusate sodium 100 mg daily -Gabapentin 100 mg PO daily -Hydrocortisone 2.5% topical LA BID-QID PRN -Hydrocortisone acetate 25 mg LA bedtime -Insulin glargine 30 units subcut daily -Lisinopril 40 mg PO daily -Lorazepam 0.5 mg PO daily PRN -Metformin 1,000 mg PO BID -Metoprolol succinate ER 50 mg PO daily -Omeprazole 20 mg PO BID -Oxycodone 5 mg PO Q6H PRN -Polyethylene glycol (Miralax) 238 grams PO once -Rosuvastatin 40 mg PO daily -Sennosides 17.2 mg PO bedtime -Sildenafil (Viagra) 100 mg PO daily PRN -Valacyclovir 1,000 mg PO TID Patient has a medical history, as follows: -Alcohol dependence with unspecified alc ohol-induced disorder -Anxiety -Depression -Erectile dysfunction -Hyperlipidemia -Essential hypertension -Type 2 diabetes mellitus -Atherosclerotic cardiovascular disease -Stomach ulcer Patient has a surgical history, as follows: -S/P CABG (coronary artery bypass graft) [facility] Medical History Alcohol dependence with unspecified alcohol-induced disorder Anxiety and depression Atherosclerotic cardiovascular disease Chronic left shoulder pain Erectile dysfunction Essential hypertension Hyperlipidemia, unspecified Osteoarthritis of hips, bilateral Stomach ulcer Type 2 diabetes mellitus with unspecified complications Surgical History S/P CABG (coronary artery bypass graft) Family History Father No problems noted. Mother Breast cancer Sister No problems noted. Social History Patient Tobacco Use Status: Former Tobacco user Review of Systems Const All systems reviewed & are unremarkable except as noted in HPI and below Physical Exam Vital Signs: BMI result Body Mass Index 28.8 Const General: cooperative, healthy appearing, comfortable, no acute distress, well developed, alert and awake Orientation/consciousness: patient oriented x3 HEENT Head: Yes normal to inspection, Yes normocephalic and Yes atraumatic Eyes General: appearance normal, both eyes and all related structures EOM: EOMs intact bilaterally Neck Neck: Yes normal visual inspection and Yes no lymphadenopathy Resp Effort & Inspection: normal respiratory effort and able to speak in complete sentences Cardio Jugular venous distension: no JVD Rate: regular rate Peripheral pulses: Peripheral pulses 2+ throughout GI Inspection: Yes normal to inspection Palpation (GI): Soft to palpation Skin General skin exam: no rashes or lesions noted Rashes: no rashes Neuro General: patient oriented x3 Extrem Other: Left Shoulder: Skin intact no abrasions or lesions + H&N + empty can REports pain and occasional numbness and tingling in left hand Psych Appearance: grossly normal Mental Status: mental status grossly normal Affect: normal affect Attitude: cooperative Assessment & Plan Assessment & Plan (1) Left rotator cuff tear: Code(s): M75.102 - Unspecified rotator cuff tear or rupture of left shoulder, not specified as traumatic Qualifiers: Rotator cuff tear extent: unspecified tear extent Rotator cuff tear trauma status: unspecified whether traumatic Qualified Code(s): M75.102 - Unspecified rotator cuff tear or rupture of left shoulder, not specified as traumatic (2) Type 2 diabetes mellitus with unspecified complications: Code(s): E11.8 - Type 2 diabetes mellitus with unspecified complications (3) Status post aorto-coronary artery bypass graft: Code(s): Z95.1 - Presence of aortocoronary bypass graft Plan Mr. Richey is a 67-year-old male, who is Latvian speaking, presents in the office today for his preoperative history and physical exam prior to a left shoulder arthroscopy to be performed on 05/08/[address] Barbosa. Patient has an allergy history, as follows: -Ibuprofen; edema Patient is currently taking, as follows: -Acetaminophen 1,000 mg Q8H PRN -Amlodipine 2.5 mg PO daily -Bisacodyl 10 mg PO once -Clopidogrel (Plavix) 75 mg PO daily -Docusate sodium 100 mg daily -Gabapentin 100 mg PO daily -Hydrocortisone 2.5% topical LA BID-QID PRN -Hydrocortisone acetate 25 mg LA bedtime -Insulin glargine 30 units subcut daily -Lisinopril 40 mg PO daily -Lorazepam 0.5 mg PO daily PRN -Metformin 1,000 mg PO BID -Metoprolol succinate ER 50 mg PO daily -Omeprazole 20 mg PO BID -Oxycodone 5 mg PO Q6H PRN -Polyethylene glycol (Miralax) 238 grams PO once -Rosuvastatin 40 mg PO daily -Sennosides 17.2 mg PO bedtime -Sildenafil (Viagra) 100 mg PO daily PRN -Valacyclovir 1,000 mg PO TID Patient has a medical history, as follows: -Alcohol dependence with unspecified alcohol-induced disorder -Anxiety -Depression -Erectile dysfunction -Hyperlipidemia -Essential hypertension -Type 2 diabetes mellitus -Atherosclerotic cardiovascular disease -Stomach ulcer Patient has a surgical history, as follows: -S/P CABG (coronary artery bypass graft) I discussed in detail the procedure and what to expect pre and post operatively. We discussed the risks, benefits and alternatives to the surgery as well as the rehabilitation course. The risks; which include, but are not limited to infection, bleeding, nerve injury, ongoing pain, swelling, and stiffness, perioperative risk of injury to bones and soft tissues, and blood clots. Patient to stop Plavix 5 days preop. He understands and accepts. I have answered all questions and with their understanding they have consented to move forward with a left shoulder arthroscopy to be performed on 05/08/[address] Spike Barbosa. Follow up will be at the post operative appointment on 05/16/2023 at 10:00 am, or sooner if needed. Patient Instructions: Scribed for Bhakti Butt PA-C by Lissa Cardoso medical sales representative, on 04/25/2023 at 9:26 am, EST. Coding Level of Care Code Global (87212) Diagnoses Tear of left rotator cuff, unspecified tear extent, unspecified whether traumatic M75.102 Rotator cuff tear extent: unspecified tear extent Rotator cuff tear trauma status: unspecified whether traumatic Type 2 diabetes mellitus with unspecified complications E11.8 Status post aorto-coronary artery bypass graft Z95.1
== END 2023-04-25 10:07 | disposition home or self-care (01) ==
PROVIDERS: PCP Internal Medicine; Visit Provider Physician Assistant
DX: M75.102 Unspecified rotator cuff tear or rupture of left shoulder, not specified as traumatic (principal); E11.8 Type 2 diabetes mellitus with unspecified complications; Z95.1 Presence of aortocoronary bypass graft
CPT/HCPCS: 99024

== ENCOUNTER → 2023-04-25 09:24 | Outpatient (BNVA) | payer OTHER, SELFPAY | PROVIDERS: PCP Internal Medicine; Visit Provider Physician Assistant ==

== ENCOUNTER 2023-04-26 07:18 | Outpatient (REF) | payer OTHER, SELFPAY | END 2023-04-26 07:19 | disposition home or self-care (01) | LOC: HO.HOSX 07:18 | PROVIDERS: Visit Provider Physician Assistant | DX: Z13.89 Encounter for screening for other disorder (principal) ==

== ENCOUNTER → 2023-05-07 12:33 | Outpatient (BNVA) | payer OTHER, SELFPAY | PROVIDERS: PCP Internal Medicine; Visit Provider Nurse Practitioner Family ==

== ENCOUNTER 2023-05-10 11:59 | Outpatient (REF) | payer OTHER, SELFPAY ==
--- NOTE | ~2023-05-10 | XR_ITS ---
EXAMINATION: XR LUMBOSACRAL SPINE CLINICAL INFORMATION: Reason for Exam PAIN COMPARISON: None TECHNIQUE: 3 views of the lumbar spine FINDINGS: 5 nonrib-bearing lumbar-type vertebral bodies. Vertebral body heights are maintained. Minimal grade 1 retrolisthesis of L2 on L3. Mild multilevel degenerative disc disease with loss of disc space height, facet arthropathy and disc osteophyte complexes. Atherosclerotic calcifications of the abdominal aorta. XR/XR lumbar spine 2-3V IMPRESSION: 1. Mild multilevel degenerative disc disease. 2. Minimal grade 1 retrolisthesis of L2 on L3.
[2023-05-10 13:49] LABS: Anion Gap 16 (12-20); Blood Urea Nitrogen 16 mg/dL (9-16); Carbon Dioxide 24 mmol/L (22-29); Chloride 104 mmol/L (96-108); Estimated Glomerular Filt Rate > 60; Glucose Random 119 mg/dL (60-115); Potassium 4.8 mmol/L (3.3-5.1); Sodium 139 mmol/L (135-145)
== END 2023-05-10 12:00 | disposition home or self-care (01) ==
LOC: HO.HHCL 11:59
PROVIDERS: Visit Provider Internal Medicine
DX: K62.5 Hemorrhage of anus and rectum (principal); E11.40 Type 2 diabetes mellitus with diabetic neuropathy, unspecified; N18.2 Chronic kidney disease, stage 2 (mild); Z13.89 Encounter for screening for other disorder
CPT/HCPCS: 36415; 72100; 80048; 82043; 82570; 85027

== ENCOUNTER 2023-05-17 10:12 | Outpatient (REF) | payer OTHER, SELFPAY | END 2023-05-17 10:13 | disposition home or self-care (01) | LOC: HO.HHCL 10:12 | PROVIDERS: Visit Provider Internal Medicine | DX: E83.52 Hypercalcemia (principal) | CPT/HCPCS: 36415; 83970 ==

== ENCOUNTER 2023-06-18 11:22 | Outpatient (AMB) | payer OTHER, SELFPAY ==
--- NOTE | 2023-06-18 11:31 | A.OFFVIS_ITS ---
Intake Vital Signs 06/18/23 11:32 Height 5 ft 4 in Weight 165 lb BMI 28.3 Intake Visit Reasons: Pre-Lt Shld Intake Note: Huber is a 68 year old male who presents today for a pre op appointment of left shoulder 07/03/23 NE. Allergies ibuprofen Adverse Reaction (Intermediate, Verified 06/18/23 11:31) Swelling HPI Pre-Lt Shld HPI Details 68-year-old male, who is [place] speakin g, presents in the office today for his preoperative history and physical exam prior to a left shoulder arthroscopy to be performed on 07/03/[address] Barbosa. The patient reports he had blood in his stool. He is scheduled for a colonoscopy on 07/16/2023. He claims he received immunizations and this caused him to have blood in the stool. [facility] Medical History Alcohol dependence with unspecified alcohol-induced disorder Osteoarthritis of hips, bilateral Chronic left shoulder pain Anxiety and depression Erectile dysfunction Hyperlipidemia, unspecified Essential hypertension Type 2 diabetes mellitus with unspecified complications Atherosclerotic cardiovascular disease Stomach ulcer Surgical History S/P CABG (coronary artery bypass graft) Family History Father No problems noted. Mother Breast cancer Sister No problems noted. Social History Patient Tobacco Use Status: Former Tobacco user Review of Systems Const All systems reviewed & are unremarkable except as noted in HPI and below Physical Exam Vital Signs: BMI result Body Mass Index 28.3 Const General: cooperative, healthy appearing, comfortable, no acute distress, well developed, alert and awake Orientation/consciousness: patient oriented x3 HEENT Head: Yes normal to inspection, Yes normocephalic and Yes atraumatic Eyes General: appearance normal, both eyes and all related structures Neck Neck: Yes normal visual inspection and Yes no lymphadenopathy Resp Effort & Inspection: normal respiratory effort and able to speak in complete sentences Cardio Rate: regular rate Peripheral pulses: Peripheral pulses 2+ throughout GI Inspection: Yes normal to inspection Palpation (GI): Soft to palpation Skin General skin exam: no rashes or lesions noted Neuro General: patient oriented x3 Extrem Other: Left Shoulder: Skin intact no abrasions or lesions + H&N + empty can REports pain and occasional numbness and tingling in left hand Psych Mental Status: mental status grossly normal Assessment & Plan Assessment & Plan (1) Left rotator cuff tear: Code(s): M75.102 - Unspecified rotator cuff tear or rupture of left shoulder, not specified as traumatic Qualifiers: Rotator cuff tear extent: unspecified tear extent Rotator cuff tear trauma status: unspecified whether traumatic Qualified Code(s): M75.102 - Unspecified rotator cuff tear or rupture of left shoulder, not specified as traumatic (2) Type 2 diabetes mellitus with unspecified complications: Code(s): E11.8 - Type 2 diabetes mellitus with unspecified complications (3) Status post aorto-coronary artery bypass graft: Code(s): Z95.1 - Presence of aortocoronary bypass graft Plan Mr. Richey is a 68-year-old male, who is [place] speaking, presents in the office today for his preoperative history and physical exam prior to a left shoulder arthroscopy to be performed on 07/03/[address] Barbosa. The patient reports he had blood in his stool. He is scheduled for a colonoscopy on 07/16/2023. He claims he received immunizations and this caused him to have blood in the stool. The left shoulder arthroscopy will be postponed at this time. I explained to the patient that the shoulder is an elective procedure and the colonoscopy is to evaluate the patient for possible medical issues like possible cancer. I expressed to the patient that the most important thing to focus on would be to further evaluate with the colonoscopy. The patient is adamant that he would rather move forward with the shoulder arthroscopy due to having waited as long as he has. At this point in the best interest of the patient his surgery has been postponed until after his colonoscopy. We will have the account analyst reach out to the patient once a plan is in place. Follow up will be when scheduled for his history and physical prior to surgery, or sooner if needed. Patient Instructions: Scribed for Bhakti Butt PA-C by Lissa Cardoso medical billing and coding instructor, on 06/18/2023 at 11:50 am, EST. Coding Level of Care Code Est Pt Level 4 (26436) Diagnoses Tear of left rotator cuff, unspecified tear extent, unspecified whether traumatic M75.102 Rotator cuff tear extent: unspecified tear extent Rotator cuff tear trauma status: unspecified whether traumatic Type 2 diabetes mellitus with unspecified complications E11.8 Status post aorto-coronary artery bypass graft Z95.1
[2023-06-18 11:32] VITALS: BMI 28.3
== END 2023-06-18 12:06 | disposition home or self-care (01) ==
PROVIDERS: PCP Internal Medicine; Visit Provider Physician Assistant
DX: M75.102 Unspecified rotator cuff tear or rupture of left shoulder, not specified as traumatic (principal); E11.8 Type 2 diabetes mellitus with unspecified complications; Z95.1 Presence of aortocoronary bypass graft
CPT/HCPCS: 99024

== ENCOUNTER → 2023-06-18 11:22 | Outpatient (BNVA) | payer OTHER, SELFPAY | PROVIDERS: PCP Internal Medicine; Visit Provider Physician Assistant | DX: M75.102 Unspecified rotator cuff tear or rupture of left shoulder, not specified as traumatic (principal); E11.8 Type 2 diabetes mellitus with unspecified complications; Z95.1 Presence of aortocoronary bypass graft | CPT/HCPCS: 99212 ==

== ENCOUNTER 2023-07-16 10:25 | Day surgery (SDC) | payer OTHER, SELFPAY ==
--- NOTE | 2023-07-15 10:13 | HO.ANESPROP2 ---
Documented by User: Mary Prince NP 07/15/23 10:18 HPI - Anesthesia Eval Consult details Narrative: 68yo M for Colonoscopy Cardiac cleared based on recent nuc imaging stress ETOH s/p CABG, plavix PMFSH Active Problems Active Problems: All Active Problems (Updated 04/25/23 @ 09:46 by Lissa Cardoso) Preoperative cardiovascular examination (Acute) Left rotator cuff tear (Acute) Instability of left shoulder joint (Acute) Left carpal tunnel syndrome (Acute) Tendonitis of left rotator cuff (Acute) Hyperlipidemia, unspecified (Acute) Essential hypertension (Acute) Type 2 diabetes mellitus with unspecified complications (Acute) Status post aorto-coronary artery bypass graft (Acute) Atherosclerotic cardiovascular disease (Acute) Past Medical History Medical History GERD (gastroesophageal reflux disease) Alcohol dependence with unspecified alcohol-induced disorder Osteoarthritis of hips, bilateral Chronic left shoulder pain Anxiety and depression Erectile dysfunction Hyperlipidemia, unspecified Essential hypertension Type 2 diabetes mellitus with unspecified complications Atherosclerotic cardiovascular disease Stomach ulcer Family History Family History Father No problems noted. Mother Breast cancer Sister No problems noted. Surgical History Surgical History S/P CABG (coronary artery bypass graft) Social History Social History Patient Tobacco Use Status: Former Tobacco user Quit Date: 2008 Use of substances other than those prescribed or required for medical reasons: No Are you DNR?: No Advance Directives: No Advance Directives Information Provided: Yes Meds Allergies Allergy/AdvReac Type Severity Reaction Status Date / Time ibuprofen AdvReac Intermediate Swelling Verified 07/16/23 12:07 Home Medications Medication Instructions Recorded Confirmed Last Taken Type acetaminophen 500 mg tablet 1,000 mg PO Q8H PRN Pain 06/13/22 04/11/23 Unknown History omeprazole 20 mg capsule,delayed 20 mg PO BID 06/13/22 04/11/23 Unknown History release clopidogrel 75 mg tablet (Plavix) 75 mg PO DAILY 09/26/22 04/11/23 06/25/23 History lisinopril 40 mg tablet 40 mg PO DAILY 09/26/22 04/11/23 Unknown History metformin 1,000 mg tablet 1,000 mg PO BID 09/26/22 04/11/23 Unknown History metoprolol succinate 50 mg 50 mg PO DAILY 09/26/22 04/11/23 Unknown History tablet,extended release 24 hr rosuvastatin 40 mg tablet 40 mg PO DAILY 09/26/22 04/11/23 Unknown History sildenafil 100 mg tablet (Viagra) 100 mg PO DAILY PRN Erectile 09/26/22 04/11/23 Unknown History Dysfunction amlodipine 10 mg tablet 10 mg PO DAILY 05/07/23 Unknown History famotidine 20 mg tablet 20 mg PO BID 05/07/23 Unknown History gabapentin 400 mg capsule 400 mg PO TID 05/07/23 Unknown History insulin glargine 100 unit/mL (3 unit subcut 05/07/23 Unknown History mL) subcutaneous pen (Lantus Solostar U-100 Insulin) Exam Pertinent Lab Results Pertinent Lab Results: Laboratory Tests 05/10/23 12:06 WBC 9.6 Hgb 12.9 L Hct 38.9 L Plt Count 289 Sodium 139 Potassium 4.8 Chloride 104 Carbon Dioxide 24 BUN 16 Creatinine 1.09 Narrative Narrative: NM cardiolite stress test 04/2023 Impression: 1. Myocardial perfusion imaging study shows no evidence of ischemia. Either diaphragmatic attenuation artifact or nontransmural infarct in the basal part of inferolateral wall. 2. Gated LVEF is 67% during stress and 75% during rest. 3. Transient ischemic dilatation not present. EKG component of the test reported separately. EKG 02/2023 Vent. Rate : 068 BPM Atrial Rate : 068 BPM P-R Int : 138 ms QRS Dur : 078 ms QT Int : 374 ms P-R-T Axes : 046 -14 020 degrees QTc Int : 397 ms Normal sinus rhythm Normal ECG When compared with ECG of 04-APR-2022 12:26, No significant change was found ECHO 07/2022 Conclusions: - 1. Low normal LV systolic function with grade 2 diastolic dysfunction with mild LVH 2. Trace aortic regurgitation 3. Normal right ventricular systolic pressure 4. No gross pericardial effusion Assessment and Plan Assessment Anesthesia Assessment: Chart Reviewed Documented by User: Rell Recio MD 07/16/23 12:59 [facility] Past Medical History Medical History GERD (gastroesophageal reflux disease) Alcohol dependence with unspecified alcohol-induced disorder Osteoarthritis of hips, bilateral Chronic left shoulder pain Anxiety and depression Erectile dysfunction Hyperlipidemia, unspecified Essential hypertension Type 2 diabetes mellitus with unspecified complications Atherosclerotic cardiovascular disease Stomach ulcer Family History Family History Father No problems noted. Mother Breast cancer Sister No problems noted. Family history of problems with anesthesia: No Surgical History Surgical History S/P CABG (coronary artery bypass graft) History of Problems with Anesthesia: No Social History Social History Patient Tobacco Use Status: Former Tobacco user Quit Date: 2008 Use of substances other than those prescribed or required for medical reasons: No Are you DNR?: No Advance Directives: No Advance Directives Information Provided: Yes Meds Allergies Allergy/AdvReac Type Severity Reaction Status Date / Time ibuprofen AdvReac Intermediate Swelling Verified 07/16/23 12:07 Home Medications Medication Instructions Recorded Confirmed Last Taken Type acetaminophen 500 mg tablet 1,000 mg PO Q8H PRN Pain 06/13/22 04/11/23 Unknown History omeprazole 20 mg capsule,delayed 20 mg PO BID 06/13/22 04/11/23 Unknown History release clopidogrel 75 mg tablet (Plavix) 75 mg PO DAILY 09/26/22 04/11/23 06/25/23 History lisinopril 40 mg tablet 40 mg PO DAILY 09/26/22 04/11/23 Unknown History metformin 1,000 mg tablet 1,000 mg PO BID 09/26/22 04/11/23 Unknown History metoprolol succinate 50 mg 50 mg PO DAILY 09/26/22 04/11/23 Unknown History tablet,extended release 24 hr rosuvastatin 40 mg tablet 40 mg PO DAILY 09/26/22 04/11/23 Unknown History sildenafil 100 mg tablet (Viagra) 100 mg PO DAILY PRN Erectile 09/26/22 04/11/23 Unknown History Dysfunction amlodipine 10 mg tablet 10 mg PO DAILY 05/07/23 Unknown History famotidine 20 mg tablet 20 mg PO BID 05/07/23 Unknown History gabapentin 400 mg capsule 400 mg PO TID 05/07/23 Unknown History insulin glargine 100 unit/mL (3 unit subcut 05/07/23 Unknown History mL) subcutaneous pen (Lantus Solostar U-100 Insulin) Exam Airway Mallampati Class: II TM Dist: >3cm Neck ROM: Full Loose/Missing/Broken Teeth: No Heart: [id number] Lungs: cta b/l Assessment and Plan Assessment Anesthesia Assessment: Anesthesia Plan Discussed Final Anesthetic Review Family History of Problems with Anesthesia: No History of Problems with Anesthesia: No NPO: Yes ASA Class: III Final Preanesthetic Review: No Changes in Pt Med Stat, Meds/Allgs Chart Reviewed, Consent Obtained/Reviewed and Anes Risks/Benef Reviewed Patient Risk: Intermediate Procedure Risk: Intermediate Assessment/Block/Sedation in SS: Assess/Block/Sedation-SS Anesthetic Plan Anesthetic Plan: MAC: and Agree w/ Assess. and Plan Disposition: Standard PACU
[2023-07-16 11:41] VITALS: BMI 28.0
[2023-07-16 11:51] VITALS: BP 137/78; PULSE 67; RESP 15; TEMP 36.2; O2SAT 97
[2023-07-16] MEDS: Lactated Ringers 1,000 ML 100 ML IVCONT (12:06)
[2023-07-16 12:14] LABS: Glucose, Whole Blood 109 mg/dL (60-115)
--- NOTE | 2023-07-16 12:19 | MHC.SHP ---
Pre-Procedural Eval Section A Date of Service: 07/16/23 Section B Chief Complaint: Encounter for screening for malignant neoplasm of Relevant Family History (Specify if Yes): No Relevant Social History: None Present Medications: see Short Stay Collaborative assessment Medical History: Significant History (GERD (gastroesophageal reflux disease) Alcohol dependence with unspecified alcohol-induced disorder Osteoarthritis of hips, bilateral Chronic left shoulder pain Anxiety and depression Erectile dysfunction Hyperlipidemia, unspecified Essential hypertension Type 2 diabetes mellitus with unspecified co) History of Previous Operations: Relevant previous surgery/procedure and date(s) (CABG) Allergies: Allergies Allergy/AdvReac Type Severity Reaction Status Date / Time ibuprofen AdvReac Intermediate Swelling Verified 07/16/23 12:07 Review of Systems Sugical H&P ROS: Negative: Constitution, Cardiovascular, Respiratory, Neurological, Psychiatric, Hem-Onc, Allergic/Immunologic, Gastrointestinal, Genitourinary, Musculoskeletal, Integumentary, Endocrine and Eyes/Ears/Nose/Throat Exam Surgical H&P Exam: Normal: HEENT, Normal: Heart, Normal: Lungs, Normal: Extremities, Normal: Abdomen, Normal: Skin and Normal: Neurological Plan Diagnosis/Plan: Unchanged I have reviewed the history and physical and performed a pertinent physical examination on my patient. No changes have occurred unless specified. Time Spent With Patient Time: Total time managing care of this patient today ____ minutes.
--- NOTE | 2023-07-16 13:08 | P.OP_ITS ---
Operative Note Operative Note Date of Service: 07/16/23 Narrative: Operative Information Procedure Description: Colonoscopy Indication: screening Anesthesia: MAC COLONOSCOPY Instrument: Olympus variable stiffness pediatric scope 190L Colonoscopy Monitoring: Vital signs and clinical assessment, continuous EKG monitoring, Pulse oximetry, Carbon Dioxide monitoring and blood pressure monitoring were done throughout the procedure. Colon withdrawal time was 7 minutes. Procedure: The patient was placed in the left lateral decubitis position and pre-procedure medications were administered. After a digital rectal examination of the ano-rectum, the video colonoscope was inserted into the rectum and advanced through the colon to the cecum/TI. The colonoscope was slowly withdrawn in a retrograde panoramic fashion and the colon mucosa was carefully examined including a retroflexed view of the rectum. Findings and interventions are described below. Procedure Difficulty: easy Findings: Terminal Ileum-normal Cecum:normal Ascending Colon: 8-9 mm sessile polyp removed with cold snare Transverse Colon -normal Descending Colon: x 2 sessile polyps removed with cold snare Sigmoid Colon: severe diverticulosis Rectum: Retroflexion with small internal hemorrhoids, grade I Anorectum - normal Colon preparation: [place] Bowel Preparation Scale Right colon; 2 Transverse colon: 2 Left colon; 1-2 (0 = Unprepared colon segment with mucosa not seen due to solid stool that cannot be cleared. 1 = Portion of mucosa of the colon segment seen, but other areas of the colon segment not well seen due to staining, residual stool and/or opaque liquid. 2 = Minor amount of residual staining, small fragments of stool and/or opaque liquid, but mucosa of colon segment seen well. 3 = Entire mucosa of colon segment seen well with no residual staining, small fragments of stool or opaque liquid) Impression and Post Procedure Diagnosis: polyps internal hemorrhoids diverticular disease Plan: High fiber diet leaflet Avoid straining at stool, epsom salts and sitz bath, anusol supps or cream Repeat Colonoscopy in 2-3 years or earlier if clinically indicated Above findings were reviewed with the patient and relevant handouts were provided if indicated.
[2023-07-16 13:39] VITALS: BP 105/64; PULSE 72; RESP 16; TEMP 36.9; O2SAT 97
[2023-07-16 13:54] VITALS: BP 120/54; PULSE 64; RESP 16; TEMP 36.8; O2SAT 98
== END 2023-07-16 14:31 | disposition home or self-care (01) ==
PROVIDERS: PCP Internal Medicine; Visit Provider Internal Medicine Gastroenterology
PROC: 0DJD8ZZ Inspection of Lower Intestinal Tract, Via Natural or Artificial Opening Endoscopic (ICD-10-PCS; CPT 45378; principal; 2023-07-16 13:40)
DX: Z12.11 Encounter for screening for malignant neoplasm of colon (principal); D12.2 Benign neoplasm of ascending colon; D12.4 Benign neoplasm of descending colon; K57.30 Diverticulosis of large intestine without perforation or abscess without bleeding; K64.0 First degree hemorrhoids; E11.69 Type 2 diabetes mellitus with other specified complication; I10 Essential (primary) hypertension; E78.5 Hyperlipidemia, unspecified; K21.9 Gastro-esophageal reflux disease without esophagitis; Z87.891 Personal history of nicotine dependence; Z95.1 Presence of aortocoronary bypass graft; Z79.84 Long term (current) use of oral hypoglycemic drugs; Z79.02 Long term (current) use of antithrombotics/antiplatelets; Z79.899 Other long term (current) drug therapy
CPT/HCPCS: 45385; 82947; 88305; J2704

== ENCOUNTER → 2023-07-16 10:25 | Outpatient (BNV) | payer OTHER, SELFPAY | PROVIDERS: PCP Internal Medicine; Visit Provider Internal Medicine Gastroenterology | DX: Z12.11 Encounter for screening for malignant neoplasm of colon (principal); D12.2 Benign neoplasm of ascending colon; D12.4 Benign neoplasm of descending colon; K57.30 Diverticulosis of large intestine without perforation or abscess without bleeding; K64.0 First degree hemorrhoids | CPT/HCPCS: 45385 ==

== ENCOUNTER 2023-09-05 09:19 | Outpatient (AMB) | payer OTHER, SELFPAY ==
[2023-09-05 09:22] VITALS: BMI 28.0
--- NOTE | 2023-09-05 09:22 | A.OFFVIS_ITS ---
Intake Vital Signs 09/05/23 09:22 Height 5 ft 4 in Weight 163 lb BMI 28.0 Intake Visit Reasons: Pre Op Lt Shoulder 09/11/23 NE Intake Note: Huber is a 68 year old male who presents today for a pre op appointment s/p Lt Shoulder 09/11/23 NE. Allergies ibuprofen Adverse Reaction (Intermediate, Verified 09/05/23 09:22) Swelling HPI Pre Op Lt Shoulder 09/11/23 NE HPI Details 68-year-old male, who is Moroccan speakin g, presents in the office today for his preoperative history and physical exam prior to a left shoulder arthroscopy to be performed on 09/11/[address] Barbosa. He reports seeing his PCP in 07/2023 when he was given a change in his diabetic medication to aid in bringing his blood sugar down. He states it was high at that time. He states his follow up was supposed to be today but they moved it so he would not miss this appointment, but he states they did review his medication over the phone. He expresses concern that he will have the surgery canceled due to not having anyone to help him at home. He states is has been canceled twice before for this reason. He states he was told yesterday on the phone by the [facility] and they were telling him they would cancel it. He states he does not have transportation, but is working with a company that drives him around. He states he has to wait for about an hour for them to come pick him up. He states he has to call the company the day before his surgery 09/10/2023 to let them know what time he needs to be at the hospital. Patient has an allergy history, as follows: -Ibuprofen; edema Patient is currently taking, as follows: -Acetaminophen 1,000 mg PO Q8H PRN -Amlodipine 10 mg PO daily -Aspirin 81 mg PO daily -Clopidogrel 75 mg PO daily -Dulaglutide 0.75 mg subcut Qweek -Famotidine 20 mg PO BID -Gabapentin 400 mg PO TID -Hydrocortisone 2.5% 1 application BID-Q ID PRN -Insulin glargine 26-36 units subcut QAM -Lisinopril 40 mg PO daily -Lorazepam 0.5 mg PO daily PRN -Metformin 1,000 mg PO BID -Metoprolol succinate ER 50 mg PO daily -Omeprazole 20 mg PO BID -Oxycodone 5 mg PO Q6H PRN -Rosuvastatin 40 mg PO daily -Sildenafil 100 mg PO daily PRN Patient has a medical history, as follows: -GERD (gastroesophageal reflux disease) -Alcohol dependence with unspecified alc ohol-induced disorder -Anxiety and depression -Erectile dysfunction -Hyperlipidemia -Essential hypertension -Type 2 diabetes mellitus -Atherosclerotic cardiovascular disease -Stomach ulcer Patient has a surgical history, as follows: -Hx of colonoscopy -S/P CABG (coronary artery bypass graft) PFSH Medical History GERD (gastroesophageal reflux disease) Alcohol dependence with unspecified alcohol-induced disorder Osteoarthritis of hips, bilateral Chronic left shoulder pain Anxiety and depression Erectile dysfunction Hyperlipidemia, unspecified Essential hypertension Type 2 diabetes mellitus with unspecified complications Atherosclerotic cardiovascular disease Stomach ulcer Surgical History (Updated 09/04/23 @ 09:27 by Lucie Gregorio RN) Hx of colonoscopy S/P CABG (coronary artery bypass graft) Family History Father No problems noted. Mother Breast cancer Sister No problems noted. Social History Household Members: None Housing: Apartment Are you a primary rn care manager to a significant other at home: No Do you presently have visiting nurse or other home services: No 75 years or older and lives alone: No Patient Tobacco Use Status: Former Tobacco user Quit Date: 2006 Tobacco use type: Cigarette Review of Systems Const All systems reviewed & are unremarkable except as noted in HPI and below Physical Exam Vital Signs: BMI result Body Mass Index 28.0 Const General: cooperative, healthy appearing and no acute distress Orientation/consciousness: patient oriented x3 HEENT Head: Yes normal to inspection, Yes normocephalic and Yes atraumatic Eyes General: appearance normal, both eyes and all related structures Neck Neck: Yes normal visual inspection and Yes no lymphadenopathy Resp Effort & Inspection: normal respiratory effort and able to speak in complete sentences Cardio Rate: regular rate Peripheral pulses: Peripheral pulses 2+ throughout GI Inspection: Yes normal to inspection Palpation (GI): Soft to palpation Skin General skin exam: no rashes or lesions noted Lesions: no lesions Rashes: no rashes Neuro General: patient oriented x3 Extrem Other: Left Shoulder: Skin intact no abrasions or lesions + H&N + empty can REports pain and occasional numbness and tingling in left hand Psych Mental Status: mental status grossly normal Assessment & Plan Assessment & Plan (1) Left rotator cuff tear: Code(s): M75.102 - Unspecified rotator cuff tear or rupture of left shoulder, not specified as traumatic Qualifiers: Rotator cuff tear extent: unspecified tear extent Rotator cuff tear trauma status: unspecified whether traumatic Qualified Code(s): M75.102 - Unspecified rotator cuff tear or rupture of left shoulder, not specified as traumatic (2) Type 2 diabetes mellitus with unspecified complications: Code(s): E11.8 - Type 2 diabetes mellitus with unspecified complications (3) Status post aorto-coronary artery bypass graft: Code(s): Z95.1 - Presence of aortocoronary bypass graft Plan Mr. Richey is a 68-year-old male, who is Moroccan speaking, presents in the office today for his preoperative history and physical exam prior to a left shoulder arthroscopy to be performed on 09/11/[address] Barbosa. He reports seeing his PCP in 07/2023 when he was given a change in his diabetic medication to aid in bringing his blood sugar down. He states it was high at that time. He states his follow up was supposed to be today but they moved it so he would not miss this appointment, but he states they did review his medication over the phone. He expresses concern that he will have the surgery canceled due to not having anyone to help him at home. He states is has been canceled twice before for this reason. He states he was told yesterday on the phone by the [facility] and they were telling him they would cancel it. He states he does not have transportation, but is working with a company that drives him around. He states he has to wait for about an hour for them to come pick him up. He states he has to call the company the day before his surgery 09/10/2023 to let them know what time he needs to be at the hospital. Patient has an allergy history, as follows: -Ibuprofen; edema Patient is currently taking, as follows: -Acetaminophen 1,000 mg PO Q8H PRN -Amlodipine 10 mg PO daily -Aspirin 81 mg PO daily -Clopidogrel 75 mg PO daily -Dulaglutide 0.75 mg subcut Qweek -Famotidine 20 mg PO BID -Gabapentin 400 mg PO TID -Hydrocortisone 2.5% 1 application BID-QID PRN -Insulin glargine 26-36 units subcut QAM -Lisinopril 40 mg PO daily -Lorazepam 0.5 mg PO daily PRN -Metformin 1,000 mg PO BID -Metoprolol succinate ER 50 mg PO daily -Omeprazole 20 mg PO BID -Oxycodone 5 mg PO Q6H PRN -Rosuvastatin 40 mg PO daily -Sildenafil 100 mg PO daily PRN Patient has a medical history, as follows: -GERD (gastroesophageal reflux disease) -Alcohol dependence with unspecified alcohol-induced disorder -Anxiety and depression -Erectile dysfunction -Hyperlipidemia -Essential hypertension -Type 2 diabetes mellitus -Atherosclerotic cardiovascular disease -Stomach ulcer Patient has a surgical history, as follows: -Hx of colonoscopy -S/P CABG (coronary artery bypass graft) I discussed in detail the procedure and what to expect pre and post operatively. We discussed the risks, benefits and alternatives to the surgery as well as the rehabilitation course. The risks; which include, but are not limited to infection, bleeding, nerve injury, ongoing pain, swelling, and stiffness, perioperative risk of injury to bones and soft tissues, and blood clots. I have answered all questions and with their understanding they have consented to move forward with a left shoulder arthroscopy to be performed on 09/11/[address] Spike Barbosa. I discussed with the patient that the office will reach out to his PCP to follow up on his most recent A1c. Follow up will be at the post operative appointment on 09/17/2023 at 9:45 am, or sooner if needed. Post operative medications was sent to the pharmacy, Oxycodone-acetaminophen 5- 325 (Percocet) PO Q4-6H PRN, quantity 42 tabs for 7 days, while in the office today. The patient was instructed that he should obtain the prescription prior to surgery but should not consume until after the procedure; as these should only be taken for post operative pain management. Should the patient take these medications prior to surgery a refill will not be sent to the pharmacy until their scheduled refill date. Patient is instructed to discontinue the Plavix or Trulicity 5 days before surgery begin tomorrow 09/06/2023. He demonstrates understanding. Patient was fitted for a sling while in the office today. An order has been placed for labs for an A1c to be drawn prior to surgery, if this was not obtained at his PCP appointment in 07/2023. Orders: Orders Hemoglobin A1c Today E11.8 - Type 2 diabetes mellitus with unspecified complications Medications: New oxycodone-acetaminophen 5-325 mg (Percocet) Partial Fill upon patient request. 1 tab PO Q4-6H PRN 42 tabs 0RF pain 7 days Patient Instructions: Scribed for Bhakti Butt PA-C by Lissa Cardoso medical research associate, on 09/05/2023 at 9:40 am, EST. Coding Level of Care Code Global (56232) Diagnoses Tear of left rotator cuff, unspecified tear extent, unspecified whether traumatic M75.102 Rotator cuff tear extent: unspecified tear extent Rotator cuff tear trauma status: unspecified whether traumatic Type 2 diabetes mellitus with unspecified complications E11.8 Status post aorto-coronary artery bypass graft Z95.1
== END 2023-09-05 10:49 | disposition home or self-care (01) ==
PROVIDERS: PCP Internal Medicine; Visit Provider Physician Assistant
DX: M75.102 Unspecified rotator cuff tear or rupture of left shoulder, not specified as traumatic (principal); E11.8 Type 2 diabetes mellitus with unspecified complications; Z95.1 Presence of aortocoronary bypass graft
CPT/HCPCS: 99024

== ENCOUNTER → 2023-09-05 09:19 | Outpatient (BNVA) | payer OTHER, SELFPAY | PROVIDERS: PCP Internal Medicine; Visit Provider Physician Assistant | DX: M75.102 Unspecified rotator cuff tear or rupture of left shoulder, not specified as traumatic (principal); E11.8 Type 2 diabetes mellitus with unspecified complications; Z95.1 Presence of aortocoronary bypass graft | CPT/HCPCS: 99212 ==

== ENCOUNTER 2023-09-11 11:18 | Day surgery (SDC) | payer OTHER, SELFPAY ==
[2023-09-04 09:38] VITALS: BMI 27.8
--- NOTE | 2023-09-10 10:26 | HO.ANESPROP2 ---
HPI - Anesthesia Eval Consult details Narrative: 68yo M for Left Shoulder Arthroscopy possible bicep tendon repair Cardiac cleared: Myocardial perfusion imaging study shows no evidence of ischemia. Either diaphragmatic attenuation artifact or non-transmural infarct in the basal part of infero-lateral wall. May proceed with shoulder surgery. Intermediate cardiac risk. ETOH s/p CABG, plavix s/p colo 07/2023 with MAC PMFSH Active Problems Active Problems: All Active Problems (Updated 07/16/23 @ 11:44 by Yadi Pete RN) Preoperative cardiovascular examination (Acute) Left rotator cuff tear (Acute) Instability of left shoulder joint (Acute) Left carpal tunnel syndrome (Acute) Tendonitis of left rotator cuff (Acute) Status post aorto-coronary artery bypass graft (Acute) Hyperlipidemia, unspecified (Acute) Essential hypertension (Acute) Type 2 diabetes mellitus with unspecified complications (Acute) Atherosclerotic cardiovascular disease (Acute) Past Medical History Medical History GERD (gastroesophageal reflux disease) Alcohol dependence with unspecified alcohol-induced disorder Osteoarthritis of hips, bilateral Chronic left shoulder pain Anxiety and depression Erectile dysfunction Hyperlipidemia, unspecified Essential hypertension Type 2 diabetes mellitus with unspecified complications Atherosclerotic cardiovascular disease Stomach ulcer Family History Family History Father No problems noted. Mother Breast cancer Sister No problems noted. Family history of problems with anesthesia: No Surgical History Surgical History Hx of colonoscopy S/P CABG (coronary artery bypass graft) History of Problems with Anesthesia: No Social History Social History Household Members: None Housing: Apartment Are you a primary nurse healthcare manager to a significant other at home: No Do you presently have visiting nurse or other home services: No 75 years or older and lives alone: No Patient Tobacco Use Status: Former Tobacco user Quit Date: 2006 Tobacco use type: Cigarette Meds Allergies Allergy/AdvReac Type Severity Reaction Status Date / Time ibuprofen AdvReac Intermediate Swelling Verified 09/11/23 12:04 Home Medications Medication Instructions Recorded Confirmed Last Taken Type acetaminophen 500 mg tablet 1,000 mg PO Q8H PRN Pain 06/13/22 09/03/23 Unknown History omeprazole 20 mg capsule,delayed 20 mg PO BID 06/13/22 09/03/23 Unknown History release clopidogrel 75 mg tablet (Plavix) 75 mg PO DAILY 09/26/22 09/11/23 08/28/23 History lisinopril 40 mg tablet 40 mg PO DAILY 09/26/22 09/11/23 09/08/23 History metformin 1,000 mg tablet 1,000 mg PO BID 09/26/22 09/11/23 09/09/23 History metoprolol succinate 50 mg 50 mg PO DAILY 09/26/22 09/11/23 09/08/23 History tablet,extended release 24 hr rosuvastatin 40 mg tablet 40 mg PO DAILY 09/26/22 09/03/23 Unknown History sildenafil 100 mg tablet (Viagra) 100 mg PO DAILY PRN Erectile 09/26/22 09/03/23 Unknown History Dysfunction amlodipine 10 mg tablet 10 mg PO DAILY 05/07/23 09/11/23 09/08/23 History famotidine 20 mg tablet 20 mg PO BID 05/07/23 09/03/23 Unknown History gabapentin 400 mg capsule 400 mg PO TID 05/07/23 09/03/23 Unknown History insulin glargine 100 unit/mL (3 26 - 36 unit subcut QAM 05/07/23 09/11/23 08/21/23 History mL) subcutaneous pen (Lantus Solostar U-100 Insulin) aspirin 81 mg chewable tablet 81 mg PO DAILY 09/04/23 09/11/23 06/11/23 History dulaglutide 0.75 mg/0.5 mL mg subcut QWEEK 09/04/23 08/21/23 History subcutaneous pen injector (Trulicity) Exam Height,Weight and Vital Signs: Height 5 ft 4 in Weight 73.482 kg Pertinent Lab Results Pertinent Lab Results: Laboratory Tests 05/10/23 12:06 WBC 9.6 Hgb 12.9 L Hct 38.9 L Plt Count 289 Sodium 139 Potassium 4.8 Chloride 104 Carbon Dioxide 24 BUN 16 Creatinine 1.09 Narrative Narrative: NM cardiolite stress test 04/2023 Impression: 1. Myocardial perfusion imaging study shows no evidence of ischemia. Either diaphragmatic attenuation artifact or nontransmural infarct in the basal part of inferolateral wall. 2. Gated LVEF is 67% during stress and 75% during rest. 3. Transient ischemic dilatation not present. EKG component of the test reported separately. EKG 02/2023 Vent. Rate : 068 BPM Atrial Rate : 068 BPM P-R Int : 138 ms QRS Dur : 078 ms QT Int : 374 ms P-R-T Axes : 046 -14 020 degrees QTc Int : 397 ms Normal sinus rhythm Normal ECG When compared with ECG of 04-APR-2022 12:26, No significant change was found ECHO 07/2022 Conclusions: - 1. Low normal LV systolic function with grade 2 diastolic dysfunction with mild LVH 2. Trace aortic regurgitation 3. Normal right ventricular systolic pressure 4. No gross pericardial effusion Assessment and Plan Assessment Anesthesia Assessment: Chart Reviewed Final Anesthetic Review Family History of Problems with Anesthesia: No History of Problems with Anesthesia: No
[2023-09-11] VITALS (9 sets, daily range): BP systolic 140–172; BP diastolic 74–92; PULSE 67–80; RESP 14–16; TEMP 36.2–36.5; O2SAT 96–100; BMI 27.8
[2023-09-11 12:25] LABS: Glucose, Whole Blood 225 mg/dL (60-115)
[2023-09-11] MEDS: Lactated Ringers 1,000 ML 100 ML IVCONT (12:28)
--- NOTE | 2023-09-11 13:10 | PC.NURSE ---
Patient in preop. Dr. Blair made aware that patient has not taken heart and blood pressure medications since Saturday. No insulin for a few weeks. When asked patient why he stated I just didn't . No new orders.
--- NOTE | 2023-09-11 13:10 | MHC.SHP ---
Pre-Procedural Eval Section A - 24 Hr Update-Section A only Date of Service: 09/11/23 Section B - Complete if H&P > 30 days Chief Complaint: Unspecified rotator cuff tear or rupture of left s Details of Present Illness: Left shoulder pain Relevant Family History (Specify if Yes): No Relevant Social History: None Present Medications: see Short Stay Collaborative assessment Medical History: No relevant PMH History of Previous Operations: No relevant previous surgery Allergies: Allergies Allergy/AdvReac Type Severity Reaction Status Date / Time ibuprofen AdvReac Intermediate Swelling Verified 09/11/23 12:04 Review of Systems Sugical H&P ROS: Negative: Constitution, Cardiovascular, Respiratory, Neurological, Psychiatric, Hem-Onc, Allergic/Immunologic, Gastrointestinal, Genitourinary, Integumentary, Endocrine and Eyes/Ears/Nose/Throat and Yes, Specify: Musculoskeletal (Left shoulder pain) Exam Surgical H&P Exam: Normal: HEENT, Normal: Lungs, Normal: Abdomen, Normal: Skin and Normal: Neurological and Significant Findings: Extremities (Left shoulder pain) Plan Diagnosis/Plan: Change (Left shoulder arthroscopy with possible biceps tenodesis) I have reviewed the history and physical and performed a pertinent physical examination on my patient. No changes have occurred unless specified. Time Spent With Patient Time: Total time managing care of this patient today ____ minutes.
--- NOTE | 2023-09-11 14:33 | PM.OP ---
Brief Operative Note Date of Service: 09/11/23 Pre-op diagnosis: Left SLAP tear Post-op diagnosis: same Procedure: Left biceps tenotomy and labral debridement with SAD Implants: none Surgeon: Spike Barbosa MD Anesthesia: GETA and regional Was an Banking Services Clerk used for this Procedure?: Yes Banking Services Clerk: Bhakti Butt Estimated blood loss (mL): 10 IV fluids (mL): 800 Pathology: none sent Condition: stable Disposition: PACU
--- NOTE | 2023-09-18 07:26 | W.PM.OPN ---
Operative Note Operative Note Date of Service: 09/11/23 Narrative: Date of Service: 09/11/23 Pre-op diagnosis: Left SLAP tear Post-op diagnosis: same Procedure: Left biceps tenotomy and labral debridement with SAD Implants: none Surgeon: Spike Barbosa MD Anesthesia: GETA and regional Was an Machine Assistant used for this Procedure?: Yes Machine Assistant: Bhakti Butt Estimated blood loss (mL): 10 IV fluids (mL): 800 Pathology: none sent Condition: stable Disposition: PACU Procedure in detail: Patient was brought to the operating room and placed the the beach chair position. All bony prominences were well padded and the limb was prepped and draped in standard sterile fashion. A time out was called to identify proper site, proper procedure and proper surgeon. IV antibiotics per weight were administered. I began by making a posterolateral stab incision with a 15 blade. A blunt trochar was placed into the glenohumeral joint and I insufflated the joint with saline and a 30 degree arthroscope was placed. I established an outside- in anterior portal just distal to the biceps tendon. I then began my inspection of the glenohumeral joint. There was a large degenerative SLAP tear at the biceps anchor ( Type 2). There were minimal cartilage changes at the inferior glenoid without humeral head changes. There was a no undersurface RTC tear. The subcapularis was intact. I debrided the loose cartilage of the glenoid and the degenerative labral tearing and performed a biceps tenotomy. I then removed the trochar and entered the subacromial space. A direct lateral portal was then established and I performed a bursectomy. The cuff was then examined. There was minimal fraying of the cuff. I debrided this and there was no significant tearing of the cuff. I then performed a 5mm subacromial decompression with a yamilet. Once I was satisfied with the repair final images were captured and I removed all instrumentation. Portals were closed with nylon. Patient was placed in an abduction sling, extubated and brought to the recovery room in stable condition. There were no known complications.
== END 2023-09-11 16:15 | disposition home or self-care (01) ==
LOC: HO.SSS 11:19
PROVIDERS: PCP Internal Medicine; Visit Provider Orthopaedic Surgery
PROC: (CPT 29805; principal; 2023-09-11 13:30)
DX: S43.432A Superior glenoid labrum lesion of left shoulder, initial encounter (principal); E11.8 Type 2 diabetes mellitus with unspecified complications; I10 Essential (primary) hypertension; E78.5 Hyperlipidemia, unspecified; F10.29 Alcohol dependence with unspecified alcohol-induced disorder; F41.8 Other specified anxiety disorders; I25.10 Atherosclerotic heart disease of native coronary artery without angina pectoris; Z95.1 Presence of aortocoronary bypass graft; Z79.82 Long term (current) use of aspirin; Z79.4 Long term (current) use of insulin; Z79.85 Long-term (current) use of injectable non-insulin antidiabetic drugs; Z79.84 Long term (current) use of oral hypoglycemic drugs; Z79.899 Other long term (current) drug therapy; Z88.8 Allergy status to other drugs, medicaments and biological substances; Z87.891 Personal history of nicotine dependence
CPT/HCPCS: 29807; 29826; 82947; J0171; J0330; J0690; J1100; J2250; J2405; J2704; J2795; J3010

== ENCOUNTER → 2023-09-11 11:18 | Outpatient (BNV) | payer OTHER, SELFPAY | PROVIDERS: PCP Internal Medicine; Visit Provider Orthopaedic Surgery | DX: S43.432A Superior glenoid labrum lesion of left shoulder, initial encounter (principal) | CPT/HCPCS: 29807 ==

== ENCOUNTER 2023-09-18 09:35 | Outpatient (AMB) | payer OTHER, SELFPAY ==
--- NOTE | 2023-09-18 10:07 | A.OFFVIS_ITS ---
Intake Intake Visit Reasons: PO Lt Shoulder 09/11/23 Confirmed Allergies ibuprofen Adverse Reaction (Intermediate, Verified 09/11/23 12:04) Swelling HPI PO Lt Shoulder 09/11/23 Confirmed HPI Details 68-year-old male who presents in the off ice today 7 days status post left biceps tenotomy and labral debridement with SAD, which was performed on 09/11/[address] Barbosa. Reports mild pain for which he is taking Tylenol for. He is still wearing his sling. Reports pain at night. [facility] Medical History GERD (gastroesophageal reflux disease) Alcohol dependence with unspecified alcohol-induced disorder Osteoarthritis of hips, bilateral Chronic left shoulder pain Anxiety and depression Erectile dysfunction Hyperlipidemia, unspecified Essential hypertension Type 2 diabetes mellitus with unspecified complications Atherosclerotic cardiovascular disease Stomach ulcer Surgical History Hx of colonoscopy S/P CABG (coronary artery bypass graft) Family History Father No problems noted. Mother Breast cancer Sister No problems noted. Social History Household Members: None Housing: Apartment Are you a primary congregational care pastor to a significant other at home: No Do you presently have visiting nurse or other home services: No 75 years or older and lives alone: No Patient Tobacco Use Status: Former Tobacco user Quit Date: 2006 Tobacco use type: Cigarette Use of substances other than those prescribed or required for medical reasons: No Advance Directives: No Advance Directives Information Provided: Yes Advance Directives on File: No Healthcare Proxy: No Review of Systems Const All systems reviewed & are unremarkable except as noted in HPI and below Physical Exam Const General: cooperative, healthy appearing and no acute distress Resp Effort & Inspection: normal respiratory effort and able to speak in complete sentences Cardio Rate: regular rate Peripheral pulses: Peripheral pulses 2+ throughout GI Palpation (GI): Soft to palpation Skin Lesions: no lesions Rashes: no rashes Extrem Other: Left shoulder: Incision sites are clean, dry, and intact. Sutures intact. No surrounding erythema or drainage. No signs of infection. Forward flexion and abduction to 90 degrees. NVI. Assessment & Plan Assessment & Plan (1) Left rotator cuff tear: Code(s): M75.102 - Unspecified rotator cuff tear or rupture of left shoulder, not specified as traumatic Qualifiers: Rotator cuff tear extent: unspecified tear extent Rotator cuff tear trauma status: unspecified whether traumatic Qualified Code(s): M75.102 - Unspecified rotator cuff tear or rupture of left shoulder, not specified as traumatic (2) Type 2 diabetes mellitus with unspecified complications: Code(s): E11.8 - Type 2 diabetes mellitus with unspecified complications (3) Status post aorto-coronary artery bypass graft: Code(s): Z95.1 - Presence of aortocoronary bypass graft Plan Mr. Richey is a 68-year-old male who presents in the office today 7 days status post left biceps tenotomy and labral debridement with SAD, which was performed on 09/11/[address] Barbosa. Reports mild pain for which he is taking Tylenol for. He is still wearing his sling. Reports pain at night. Sutures were removed and steri-stripes were applied while in the office today. The patient was encouraged to discontinue the use of the sling at this time. He will begin to work with physical therapy, with his first appointment being on 09/26/2023. Follow up will be in 4 weeks, or sooner if needed. Patient Instructions: Scribed by Lisas Cardoso esthetician and manager medical spa, for Bhakti Butt PA-C on 09/18/2023 at 9:43 am, EST. Coding Level of Care Code Global (03992) Diagnoses Tear of left rotator cuff, unspecified tear extent, unspecified whether traumatic M75.102 Rotator cuff tear extent: unspecified tear extent Rotator cuff tear trauma status: unspecified whether traumatic Type 2 diabetes mellitus with unspecified complications E11.8 Status post aorto-coronary artery bypass graft Z95.1
== END 2023-09-18 10:36 | disposition home or self-care (01) ==
PROVIDERS: PCP Internal Medicine; Visit Provider Physician Assistant
DX: M75.102 Unspecified rotator cuff tear or rupture of left shoulder, not specified as traumatic (principal); E11.8 Type 2 diabetes mellitus with unspecified complications; Z95.1 Presence of aortocoronary bypass graft
CPT/HCPCS: 99024

== ENCOUNTER → 2023-09-18 09:35 | Outpatient (BNVA) | payer OTHER, SELFPAY | PROVIDERS: PCP Internal Medicine; Visit Provider Physician Assistant | DX: M75.102 Unspecified rotator cuff tear or rupture of left shoulder, not specified as traumatic (principal); E11.8 Type 2 diabetes mellitus with unspecified complications; Z95.1 Presence of aortocoronary bypass graft | CPT/HCPCS: 99212 ==

== ENCOUNTER 2023-10-08 11:23 | Outpatient (AMB) | payer OTHER, SELFPAY ==
--- NOTE | 2023-10-08 11:28 | MHC.OFFVIS ---
Intake Vital Signs 10/08/23 11:36 Height 5 ft 4 in Weight 154 lb 5.177 oz BMI 26.5 BP 127/74 Blood Pressure Location Lt brachial Position Sitting Pulse 65 Intake Visit Reasons: S/P Jean Colonoscopy Follow Up Intake Note: Huber presents in the office as a follow up colonoscopy. CC: He states that he is not having any concerns since his procedure. Youth Agent Required: Yes Youth Agent Name: Ratna [id number] Allergies ibuprofen Adverse Reaction (Intermediate, Verified 10/08/23 11:29) Swelling HPI S/P Jean Colonoscopy Follow Up HPI Details LAST VISIT: Screen for colon cancer Chronic idiopathic constipation Plan What to expect before during and after procedure discussed with patient. The importance of good bowel prep stressed to the patient. Clear liquid diet day before procedure discussed with patient as well. Patient will call our office if he will have trouble moving his bowels. Continue Dulcolax daily. Patient was encouraged to increase fluid intake and activity to promote better bowel motility. Patient denies any cardiac or respiratory symptoms. Nuclear stress test normal. May hold Plavix for 5 days before the procedure. I will see patient after the procedure, sooner on as needed basis. Patient is agreeable to this plan and verbalizes understanding of instructions. He was given the opportunity to ask questions and all questions answered. COLONOSCOPY Findings: Terminal Ileum-normal Cecum:normal Ascending Colon: 8-9 mm sessile polyp removed with cold snare Transverse Colon -normal Descending Colon: x 2 sessile polyps removed with cold snare Sigmoid Colon: severe diverticulosis Rectum: Retroflexion with small internal hemorrhoids, grade I Anorectum - normal Colon preparation: [place] Bowel Preparation Scale Right colon; 2 Transverse colon: 2 Left colon; 1-2 (0 = Unprepared colon segment with mucosa not seen due to solid stool that cannot be cleared. 1 = Portion of mucosa of the colon segment seen, but other areas of the colon segment not well seen due to staining, residual stool and/or opaque liquid. 2 = Minor amount of residual staining, small fragments of stool and/or opaque liquid, but mucosa of colon segment seen well. 3 = Entire mucosa of colon segment seen well with no residual staining, small fragments of stool or opaque liquid) Impression and Post Procedure Diagnosis: polyps internal hemorrhoids diverticular disease Plan: High fiber diet leaflet Avoid straining at stool, epsom salts and sitz bath, anusol supps or cream Repeat Colonoscopy in 2-3 years or earlier if clinically indicated PATHOLOGY RESULTS Diagnosis A. Colon, ascending, polypectomy: Fragments of tubular adenoma; negative for high-grade dysplasia or carcinoma. B. Colon, descending, polypectomies (2): Fragments of tubular adenomata; negative for high-grade dysplasia or carcinoma. TODAY'S VISIT: Patient is here today for follow-up and to discuss colonoscopy results. Patient denies any ill effects from the prep, anesthesia or procedure itself. Reports that he has been feeling well. Denies melena, hematochezia, unintentional weight loss or ribbon like stools. Tubular adenoma found without high-grade dysplasia or carcinoma. Patient was found to have severe diverticulosis in sigmoid colon. Patient denies any abdominal pain or discomfort. Reports that he is moving her bowels without any issues. Patient denies any GI concerning symptoms. Denies any dyspepsia, dysphagia or odynophagia. Patient reports to be feeling well. [facility] Medical History (Updated 10/10/23 @ 19:52 by Kavita Weston [facility]) Tubular adenoma of colon Diverticulosis GERD (gastroesophageal reflux disease) Alcohol dependence with unspecified alcohol-induced disorder Osteoarthritis of hips, bilateral Chronic left shoulder pain Anxiety and depression Erectile dysfunction Hyperlipidemia, unspecified Essential hypertension Type 2 diabetes mellitus with unspecified complications Atherosclerotic cardiovascular disease Stomach ulcer Surgical History Hx of colonoscopy S/P CABG (coronary artery bypass graft) Family History Father No problems noted. Mother Breast cancer Sister No problems noted. Social History Household Members: None Housing: Apartment Are you a primary care transitions manager to a significant other at home: No Do you presently have visiting nurse or other home services: No 75 years or older and lives alone: No Patient Tobacco Use Status: Former Tobacco user Quit Date: 2006 Tobacco use type: Cigarette Review of Systems Const Denies weight gain and Denies weight loss ENT Reports no additional complaints, Denies dysphagia and Denies odynophagia Card Reports no additional complaints Resp Reports no additional complaints GI Denies abdominal pain, Denies belching, Denies melena, Denies bloating, Denies change in bowel habits, Denies dysphagia, Denies excessive flatus, Denies dyspepsia, Denies heartburn, Denies diarrhea, Denies loose stools, Denies nausea, Denies odynophagia and Denies vomiting Reports no additional complaints Musc Reports no additional complaints Neuro Reports no additional complaints Psych Reports no additional complaints Endo Reports no additional complaints Physical Exam Vital Signs: Last Vital Signs Pulse 65 10/08/23 11:36 BP 127/74 10/08/23 11:36 BMI result Body Mass Index 26.5 Const General: healthy appearing, no acute distress and well developed Nutritional Appearance: well nourished Orientation/consciousness: patient oriented x3 Resp Effort & Inspection: normal respiratory effort, able to speak in complete sentences, no tracheal deviation and symmetric chest movement Auscultation: clear to auscultation bilaterally Cardio Rate: regular rate GI Inspection: Yes normal to inspection and No distended Palpation (GI): Soft to palpation, not firm, nontender and No hepatosplenomegaly present Auscultation: normal bowel sounds General: Yes no CVA tenderness Back/Spine/Pelvis Back: no CVA tenderness Skin General skin exam: elasticity normal, turgor normal and dry skin Neuro General: patient oriented x3 Psych Appearance: grossly normal Mental Status: mental status grossly normal Assessment & Plan Assessment & Plan (1) Diverticulosis: Code(s): K57.90 - Diverticulosis of intestine, part unspecified, without perforation or abscess without bleeding (2) Tubular adenoma of colon: Code(s): D12.6 - Benign neoplasm of colon, unspecified (3) Status post colonoscopy: Code(s): Z98.890 - Other specified postprocedural states Plan Tubular adenoma without high-grade dysplasia or carcinoma found. Patient will repeat colonoscopy in 2 years, sooner if clinically necessary. Diverticular disease in sigmoid colon found. High-fiber diet discussed with patient. List of food high in fiber given to patient. Patient will follow-up in our office in 1 year, sooner on as needed basis. Patient is agreeable to this plan and verbalizes understanding of instructions. He was given the opportunity to ask questions and all questions answered. Thank you for allowing me to participate in his care Coding Level of Care Code Est Pt Level 3 (10957) Diagnoses Diverticulosis K57.90 Tubular adenoma of colon D12.6 Status post colonoscopy Z98.890 Time Spent (min) 25 Comment 15 minutes spent with patient and additional 10 minutes spent reviewing his records
[2023-10-08 11:36] VITALS: BP 127/74; PULSE 65; BMI 26.5
== END 2023-10-08 11:52 | disposition home or self-care (01) ==
PROVIDERS: PCP Internal Medicine; Visit Provider Nurse Practitioner Family
DX: K57.90 Diverticulosis of intestine, part unspecified, without perforation or abscess without bleeding (principal); D12.6 Benign neoplasm of colon, unspecified; Z98.890 Other specified postprocedural states
CPT/HCPCS: 99213

== ENCOUNTER → 2023-10-08 11:23 | Outpatient (BNVA) | payer OTHER, SELFPAY | PROVIDERS: PCP Internal Medicine; Visit Provider Nurse Practitioner Family | DX: D12.6 Benign neoplasm of colon, unspecified (principal); K57.90 Diverticulosis of intestine, part unspecified, without perforation or abscess without bleeding; Z98.890 Other specified postprocedural states | CPT/HCPCS: 99212 ==

== ENCOUNTER 2023-10-17 10:24 | Outpatient (AMB) | payer OTHER, SELFPAY ==
--- NOTE | 2023-10-17 10:31 | A.OFFVIS_ITS ---
Intake Intake Visit Reasons: PO Lt Shoulder 09/11/23 - Not Confirmed Intake Note: Huber is a 68-year-old right hand dominant male who presents in the office today for a post operative appointment s/p left biceps tenotomy and labral debridement with SAD,09/11/2023. Pateint reports that he is doing well with mild pain, he is taking Tylenol for this. Most of his pain is felt at night Allergies ibuprofen Adverse Reaction (Intermediate, Verified 10/08/23 11:29) Swelling HPI PO Lt Shoulder 09/11/23 - Not Confirmed HPI Details Huber is a 68-year-old right hand dominant male who presents in the office today for a post operative appointment s/p left biceps tenotomy and labral debridement with SAD,09/11/2023. Pateint reports that he is doing well with mild pain, he is taking Tylenol for this. Most of his pain is felt at night [facility] Medical History (Updated 10/17/23 @ 11:13 by Spike Barbosa MD) Tubular adenoma of colon Diverticulosis GERD (gastroesophageal reflux disease) Alcohol dependence with unspecified alcohol-induced disorder Osteoarthritis of hips, bilateral Chronic left shoulder pain Anxiety and depression Erectile dysfunction Hyperlipidemia, unspecified Essential hypertension Type 2 diabetes mellitus with unspecified complications Atherosclerotic cardiovascular disease Stomach ulcer Surgical History Hx of colonoscopy S/P CABG (coronary artery bypass graft) Family History Father No problems noted. Mother Breast cancer Sister No problems noted. Social History Household Members: None Housing: Apartment Are you a primary acute care certified nursing assistant to a significant other at home: No Do you presently have visiting nurse or other home services: No 75 years or older and lives alone: No Patient Tobacco Use Status: Former Tobacco user Quit Date: 2006 Tobacco use type: Cigarette Physical Exam Extrem Other: /125 S1 Neg Speed/Yerg TTP over bicipital groove that is mild portal c/d/i Assessment & Plan Assessment & Plan (1) SLAP (superior labrum from anterior to posterior) tear: Code(s): S43.439A - Superior glenoid labrum lesion of unspecified shoulder, initial encounter Plan: s/p biceps tenotomy and SAD doing well He is attending PT and may continue to progress as tolerated Plan Follow up in 6 weeks Coding Level of Care Code Global (51519) Diagnoses SLAP (superior labrum from anterior to posterior) tear S43.439A
== END 2023-10-17 11:02 | disposition home or self-care (01) ==
PROVIDERS: PCP Internal Medicine; Visit Provider Orthopaedic Surgery
DX: S43.439A Superior glenoid labrum lesion of unspecified shoulder, initial encounter (principal)
CPT/HCPCS: 99024

== ENCOUNTER → 2023-10-17 10:24 | Outpatient (BNVA) | payer OTHER, SELFPAY | PROVIDERS: PCP Internal Medicine; Visit Provider Orthopaedic Surgery | DX: S43.432D Superior glenoid labrum lesion of left shoulder, subsequent encounter (principal) | CPT/HCPCS: 99212 ==

== ENCOUNTER 2023-10-28 10:00 | Outpatient (RCR) | payer OTHER, SELFPAY ==
[2023-10-04 10:02] VITALS: BP 123/68; PULSE 72
--- NOTE | 2023-10-04 10:56 | MHC.PT.EP ---
[facility] [place] [facility] [place] [facility] [place] Office [address] Eliazar Ji [address] [phone] F: [phone] F: [phone] F: [phone] F: [phone] Physical Therapy Plan of Care Date of Evaluation: 10/04/23 Date of Surgery: 09/11/23 Diagnosis: L shoulder Assessment: Huber is a 68 year old male who is referred to PT for L shoulder . He is 3.5 weeks post op. Per operative reports bicep tenotomy was also done. His shoulder sling was d/c in 09/18/23. On PT examination he presented with 8/10 pain L shoulder at rest and with movements, no TTP, decreased L shoulder ROM, decreased L shoulder and scap strength, and altered posture. He lives with his and she has been assisting him with all ADLS due to pain. He is disabled. He would benefit from skilled PT to address the aforementioned impairments and improve tolerance to functional activities. Frequency and Duration: The patient will be seen 2/week for 8 weeks Short Term Goals: 1. Pt will have 50% decrease in pain which will enable him to sleep through the night without discomfort in 2 weeks. 2. 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 Pt will demonstrate an increase in muscle strength by 1 grade which will enable him to use L UE for all IADLs like cleaning, cooking and grocery in 6 weeks. 2. Pt will be independent with HEP and return to PLOF in 8 weeks. Treatment Plan: Modalities to reduce pain, spasms and effusion. Manual therapy to restore motion and function. Therapeutic exercise to improve strength and flexibility. Neuromuscular re-education for posture and balance. Therapeutic activities to return to functional activities of daily living. Electronically signed by: Sybil Andino PT DPT Please sign and return to therapist. Thank you for your referral.
--- NOTE | 2024-03-17 08:21 | MHC.PT.DC ---
[facility] [place] Office [place] Office [place] Office [address] Eliazar Ji [address] [phone] F: [phone] F: [phone] F: [phone] F: [phone] Physical Therapy Discharge Report Diagnosis: L shoulder Date of Surgery: 09/11/23 Date of Evaluation: 10/04/23 Date of Discharge: 03/17/24 Treatments to Date: 6 Cancellations to Date: 1 No Shows to Date: 2 Discharge Status: Visit Non-compliance Discharge Summary: Huber was d/c from PT as he missed his last 2 appointments and did not schedule any more after. Electronically signed by: Sybil Andino PT DPT Please sign and return to therapist. Thank you for your referral.
== END 2024-03-17 08:21 | disposition home or self-care (01) ==
LOC: HO.PT 10:00
PROVIDERS: PCP Internal Medicine; Visit Provider Physician Assistant
DX: M75.102 Unspecified rotator cuff tear or rupture of left shoulder, not specified as traumatic (principal); M25.312 Other instability, left shoulder; Z98.890 Other specified postprocedural states
CPT/HCPCS: 97110; 97161; 97530

== ENCOUNTER 2023-10-29 08:23 | Outpatient (AMB) | payer OTHER, SELFPAY ==
--- NOTE | 2023-10-29 08:52 | A.OFFVIS_ITS ---
Intake Vital Signs 10/29/23 08:54 Height 5 ft 4 in Weight 162 lb 0.636 oz BMI 27.8 BP 118/60 Blood Pressure Location Rt brachial Position Sitting Pulse 76 Intake Visit Reasons: 6M (rs) Intake Note: 6 month follow up Science Interpreter Required: Yes Science Interpreter Language: [employer] Medic Name: [id number] Sena Accompanied by: Self / Same As Patient Allergies ibuprofen Adverse Reaction (Intermediate, Verified 10/29/23 08:54) Swelling Medication List - Last Reconciled 10/29/23 by Vamsi Mendiola MD acetaminophen 1,000 mg PO Q8H PRN amlodipine 10 mg PO DAILY clopidogrel (Plavix) 75 mg PO DAILY docusate sodium 100 mg PO DAILY dulaglutide (Trulicity) mg subcut QWEEK famotidine 20 mg PO BID fluoxetine 20 mg PO DAILY gabapentin 400 mg PO TID hydrocortisone 2.5% (Proctosol HC) 1 appl SD BID-QID PRN insulin glargine (Lantus Solostar U-100 Insulin) 26 - 36 units subcut QAM lisinopril 40 mg PO DAILY lorazepam 0.5 mg PO DAILY PRN metformin 1,000 mg PO BID metoprolol succinate ER 50 mg PO DAILY omeprazole 20 mg PO BID rosuvastatin 40 mg PO DAILY sennosides (senna) 17.2 mg PO DAILY sildenafil (Viagra) 100 mg PO DAILY PRN HPI HPI Comments History of Present Illness Details Huber returns for follow-up. In the past, was seen regarding coronary disease. He underwent coronary artery bypass surgery in 2011. Multiple medical comorbidities including diabetes, hypertension, dyslipidemia among others. He had the bypass surgery in [place] and then moved to [place] and then more recently he is living here. He states he gets chronic chest pains and he was told that it is all related to bone pain from sternotomy. Overall, no new concerns and he states he is feeling fine. [facility] Medical History (Updated 10/17/23 @ 11:13 by Spike Barbosa MD) Tubular adenoma of colon Diverticulosis GERD (gastroesophageal reflux disease) Alcohol dependence with unspecified alcohol-induced disorder Osteoarthritis of hips, bilateral Chronic left shoulder pain Anxiety and depression Erectile dysfunction Hyperlipidemia, unspecified Essential hypertension Type 2 diabetes mellitus with unspecified complications Atherosclerotic cardiovascular disease Stomach ulcer Surgical History Hx of colonoscopy S/P CABG (coronary artery bypass graft) Family History Father No problems noted. Mother Breast cancer Sister No problems noted. Social History Household Members: None Housing: Apartment Are you a primary complex care nurse practitioner to a significant other at home: No Do you presently have visiting nurse or other home services: No 75 years or older and lives alone: No Patient Tobacco Use Status: Former Tobacco user Quit Date: 2006 Tobacco use type: Cigarette Review of Systems Const Denies weakness ENT Denies dizziness Card Denies chest pain, Denies chest pain with activity, Denies syncope, Denies rapid heart rate, Denies pedal edema, Denies edema, Denies leg edema, Denies lightheadedness, Denies palpitations, Denies dyspnea, Denies dyspnea on exertion and Denies orthopnea Resp Denies cough, Denies dyspnea and Denies dyspnea on exertion GI Denies hematochezia and Denies change in stool character Musc Denies abnormal gait, Denies muscle cramps, Denies muscle weakness, Denies numbness, Denies radiating pain into limb and Denies tingling Neuro Denies abnormal gait, Denies dizziness, Denies syncope, Denies numbness, Denies tingling and Denies weakness Endo Denies palpitations Physical Exam Vital Signs: Last Vital Signs Pulse 76 10/29/23 08:54 BP 118/60 10/29/23 08:54 BMI result Body Mass Index 27.8 Const General: comfortable and no acute distress Orientation/consciousness: patient oriented x3 HEENT Other: Unremarkable Head: Yes normal to inspection Neck Neck: Yes normal visual inspection Chest Chest palpation & inspection: normal inspection of the chest Resp Auscultation: clear to auscultation bilaterally Cardio Palpation: normal PMI Heart sounds: S1 normal heart sound present, S2 normal heart sound present, no gallops, no murmurs and no rubs GI Palpation (GI): Soft to palpation Back/Spine/Pelvis Other: unremarkable Skin General skin exam: no rashes or lesions noted Neuro General: patient oriented x3 Extrem General: Yes normal to inspection Psych Mental Status: mental status grossly normal Assessment & Plan Assessment & Plan (1) Atherosclerotic cardiovascular disease: Code(s): I25.10 - Atherosclerotic heart disease of [place] coronary artery without angina pectoris Plan: In the last echocardiogram, low normal LVEF, 50-55%. Moderate diastolic dysfunction. Myocardial perfusion imaging study shows no ischemia. Diaphragmatic attenuation artifact versus nontransmural infarct in the basal inferolateral wall. For meds, it seems that he has been on long-term Plavix although there is no clear-cut allergy to aspirin. No changes made at this time. Continue statins. Lipids can be followed up through his own PCP. Target should be in the 50s to 60s range. Will request last labs. (2) Status post aorto-coronary artery bypass graft: Code(s): Z95.1 - Presence of aortocoronary bypass graft Plan: Chronic sternotomy pain. (3) Type 2 diabetes mellitus with unspecified complications: Code(s): E11.8 - Type 2 diabetes mellitus with unspecified complications Plan: He is on insulin, metformin. Per PCP note, last hemoglobin A1c is 7.9. Less than optimal. Will need to get the most recent labs. (4) Essential hypertension: Code(s): I10 - Essential (primary) hypertension Plan: On lisinopril/amlodipine. No changes. (5) Hyperlipidemia, unspecified: Code(s): E78.5 - Hyperlipidemia, unspecified Qualifiers: Hyperlipidemia type: unspecified Qualified Code(s): E78.5 - Hyperlipidemia, unspecified Plan: On rosuvastatin 40 mg daily. Last available LDL is 71 mg/dL. Will contact PCP for more recent labs. Coding Level of Care Code Est Pt Level 4 (36581) Diagnoses Atherosclerotic cardiovascular disease I25.10 Status post aorto-coronary artery bypass graft Z95.1 Type 2 diabetes mellitus with unspecified complications E11.8 Essential hypertension I10 Hyperlipidemia, unspecified hyperlipidemia type E78.5 Hyperlipidemia type: unspecified
[2023-10-29 08:54] VITALS: BP 118/60; PULSE 76; BMI 27.8
== END 2023-10-29 09:14 | disposition home or self-care (01) ==
PROVIDERS: PCP Internal Medicine; Visit Provider Internal Medicine
DX: I25.10 Atherosclerotic heart disease of native coronary artery without angina pectoris (principal); Z95.1 Presence of aortocoronary bypass graft; E11.8 Type 2 diabetes mellitus with unspecified complications; I10 Essential (primary) hypertension; E78.5 Hyperlipidemia, unspecified
CPT/HCPCS: 99214

== ENCOUNTER → 2023-10-29 08:23 | Outpatient (BNVA) | payer OTHER, SELFPAY | PROVIDERS: PCP Internal Medicine; Visit Provider Internal Medicine | DX: I25.10 Atherosclerotic heart disease of native coronary artery without angina pectoris (principal); I10 Essential (primary) hypertension; E11.8 Type 2 diabetes mellitus with unspecified complications; E78.5 Hyperlipidemia, unspecified; Z95.1 Presence of aortocoronary bypass graft | CPT/HCPCS: 99212 ==

== ENCOUNTER 2023-11-28 09:20 | Outpatient (AMB) | payer OTHER, SELFPAY ==
--- NOTE | 2023-11-28 09:51 | MHC.OFFVIS ---
Vital Signs 11/28/23 09:52 Height 5 ft 4 in Weight 162 lb BMI 27.8 Intake Visit Reasons: PO Lt Shoulder 09/11/23 - Not Confirmed Intake Note: Huber is a 68 year old right hand dominant male who presents in the office today for a post operative appointment s/p left biceps tenotomy and labral debridement with SAD,09/11/2023. Patient reports that he has continued pain, he finished physical therapy which was helpful. He would like more sessions. 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 Allergies ibuprofen Adverse Reaction (Intermediate, Verified 10/29/23 08:54) Swelling HPI HPI PO Lt Shoulder 09/11/23 - Not Confirmed: Details: Huber is a 68 year old right hand dominant male who presents in the office today for a post operative appointment s/p left biceps tenotomy and labral debridement with SAD,09/11/2023. Patient reports that he has continued pain, he finished physical therapy which was helpful. He would like more sessions. 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 [facility] Medical History (Updated 10/17/23 @ 11:13 by Spike Barbosa MD) Tubular adenoma of colon Diverticulosis GERD (gastroesophageal reflux disease) Alcohol dependence with unspecified alcohol-induced disorder Osteoarthritis of hips, bilateral Chronic left shoulder pain Anxiety and depression Erectile dysfunction Hyperlipidemia, unspecified Essential hypertension Type 2 diabetes mellitus with unspecified complications Atherosclerotic cardiovascular disease Stomach ulcer Surgical History Hx of colonoscopy S/P CABG (coronary artery bypass graft) Family History Father No problems noted. Mother Breast cancer Sister No problems noted. Social History Household Members: None Housing: Apartment Are you a primary home care rn to a significant other at home: No Do you presently have visiting nurse or other home services: No 75 years or older and lives alone: No Patient Tobacco Use Status: Former Tobacco user Quit Date: 2006 Tobacco use type: Cigarette Physical Exam Vital Signs: BMI result Body Mass Index 27.8 Extrem Other: inc c/d/i 30/90/130/s1 TTP over bicipital groove Assessment & Plan Assessment & Plan (1) SLAP (superior labrum from anterior to posterior) tear: Code(s): S43.439A - Superior glenoid labrum lesion of unspecified shoulder, initial encounter Category: Medical Plan: s/p biceps tenotomy. PT ordered reassured him but he is not modifying activities f/u 6 weeks Orders: Orders PT Evaluation and Treatment Today S43.439A - Superior glenoid labrum lesion of unspecified shoulder, initial encounter Coding Level of Care Code Global (12660) Diagnoses SLAP (superior labrum from anterior to posterior) tear S43.439A
[2023-11-28 09:52] VITALS: BMI 27.8
== END 2023-11-28 10:34 | disposition home or self-care (01) ==
PROVIDERS: PCP Internal Medicine; Visit Provider Orthopaedic Surgery
DX: S43.439A Superior glenoid labrum lesion of unspecified shoulder, initial encounter (principal)
CPT/HCPCS: 99024

== ENCOUNTER → 2023-11-28 09:20 | Outpatient (BNVA) | payer OTHER, SELFPAY | PROVIDERS: PCP Internal Medicine; Visit Provider Orthopaedic Surgery | DX: S43.432D Superior glenoid labrum lesion of left shoulder, subsequent encounter (principal) | CPT/HCPCS: 99212 ==

== ENCOUNTER 2023-12-02 10:28 | Outpatient (REF) | payer OTHER, SELFPAY ==
[2023-12-02 11:30] LABS: MANUAL DIFF FLAG NO
[2023-12-02 11:41] LABS: Basophils Percent Auto 0.4 % (0-2); Eosinophils Absolute Auto 0.2 X10*3/uL (0.0-0.4); Eosinophils Percent Auto 2.7 % (0-4); Hematocrit 40.3 % (42.0-52.0); Hemoglobin 13.4 g/dl (14.0-18.0); Imm Gran Abs Auto 0.03 X10*3/uL (0.00-0.03); Imm Gran Pct Auto 0.4 % (0.0-0.4); Lymphocytes Absolute Auto 2.8 X10*3/uL (1.2-4.9); Mean Corpuscular HGB Conc 33.3 g/dl (31.0-36.0); Mean Corpuscular Hemoglobin 29.7 pg (27.0-33.0); Mean Corpuscular Volume 89.4 fL (80.0-98.0); Mean Platelet Volume 10.7 fL (9.4-12.4); Monocytes Absolute Auto 0.6 X10*3/uL (0.1-1.2); Monocytes Percent Auto 6.9 % (2-11); Neutrophils Absolute Auto 4.5 x10*3/uL (2.0-8.3); Neutrophils Percent Auto 55.6 % (45-73); Platelet Count 258 X10*3/uL (160-400); Red Blood Count 4.51 X10*6/uL (4.60-5.80); Red Cell Distribution Width 13.2 % (11.0-16.0); White Blood Count 8.1 X10*3/uL (4.8-10.8)
[2023-12-02 13:06] LABS: Alanine Aminotransferase 13 U/L (0-40); Albumin Level 4.3 g/dL (3.5-5.0); Alkaline Phosphatase 39 U/L (39-117); Anion Gap 14 (12-20); Aspartate Amino Transferase 20 U/L (5-37); Bilirubin Direct < 0.2 mg/dL (0.0-0.5); Bilirubin Total 0.2 mg/dL (0.0-1.0); Blood Urea Nitrogen 17 mg/dL (9-16); Calcium 10.3 mg/dL (8.4-10.2); Carbon Dioxide 24 mmol/L (22-29); Chloride 106 mmol/L (96-108); Cholesterol 155 mg/dL (<200); Estimated Glomerular Filt Rate > 60; Glucose Random 217 mg/dL (60-115); HDL Cholesterol 45 mg/dL (>40); LDL Cholesterol Calculated 61 mg/dL (<100); Potassium 4.2 mmol/L (3.3-5.1); Sodium 140 mmol/L (135-145); Total Protein 7.9 g/dL (6.5-8.0); Triglycerides 246 mg/dL (<150)
== END 2023-12-02 10:29 | disposition home or self-care (01) ==
LOC: HO.HHCL 10:28
PROVIDERS: Visit Provider Internal Medicine
DX: I10 Essential (primary) hypertension (principal)
CPT/HCPCS: 36415; 80048; 80061; 80076; 85025

== ENCOUNTER 2024-01-15 10:30 | Outpatient (RCR) | payer OTHER, SELFPAY ==
--- NOTE | 2024-01-06 12:33 | MHC.OT.EP ---
[address] [phone] Occupational Therapy Plan of Care Patient Name: Huber Richey Date of Evaluation: 01/06/24 Diagnosis: Pain Location: Volar and dorsal side of hand/ wrist reported w/ numbness, tingling, and pain Pain Score: 9 Pain Scale Used: Numeric (0 - 10) Aggravating Factors: Could not quantify Alleviating Factors: Pt reports he has tried heat, paraffin wax, & home remedies w/ minimal results Assessment: Pt is a 24 yr. old R hand dominant male who reports pain/ discomfort along the ulnar side of his L wrist since October while increasing his gym routine (weight lifting/ basketball). He reports waking up in October and not being able to weight bear through his wrist; supinate/ extend his wrist w/ out extreme pain. He reports he has been avoiding UE work outs at the gym and his pain free AROM has improved. He saw the MD and was referred to skilled OT therapy for increased pain free ROM, strength, and functional use of his L hand/wrist Frequency and Duration: The patient will be seen 2 visits a week x 4 weeks Short Term Goals: Pt will be complaint w/ his HEP Pt will be complaint w/ use of heat/ice to decrease pain for increased use of his L hand/ wrist Pt will report a decrease of pain in his L wrist to 5/10 Braid Cutter Goals: Pt will report being complaint w/ night time orthoses wear Pt will report gain 5 lbs of hand senior computer specialist (50 lbs) Pt will report increased use of his L hand to carry grocery bags Treatment Plan: Therapeutic Exercise Therapeutic Activity Home Exercise Program Splinting Neuro Re-ed Patient Education Desensitization/Sensory Re-ed Edema Control ADL Training Ultrasound NMES Iontophoresis Paraffin Fluidotherapy MHP Cold Packs Joint Mobilization Soft Tissue Mobilization Kinesiotaping Other (see comments) Electronically Signed By: Dina Mckinney OTR/L Please Sign and return to therapist. Thank you once again for your referral.
== END 2024-01-27 11:37 | disposition home or self-care (01) ==
LOC: HO.OT 10:30
PROVIDERS: PCP Internal Medicine; Visit Provider Internal Medicine
DX: M79.642 Pain in left hand (principal)
CPT/HCPCS: 29130; 97035; 97110; 97140; 97166; 97535

== ENCOUNTER 2024-03-05 10:27 | Outpatient (AMB) | payer OTHER, SELFPAY ==
[2024-03-05 10:28] VITALS: BMI 27.8
--- NOTE | 2024-03-05 10:28 | A.OFFVIS_ITS ---
Vital Signs 03/05/24 10:28 Height 5 ft 4 in Weight 162 lb BMI 27.8 Intake Visit Reasons: OV-Lt Shoulder 09/11/23 - 3 month follow up Intake Note: Huber is a 68 year old right hand dominant male who presents in the office today for a post operative appointment s/p left biceps tenotomy and labral debridement with SAD,09/11/2023. Patient reports that he is having continued pain of the left shoulder. Allergies ibuprofen Adverse Reaction (Intermediate, Verified 03/05/24 10:30) Swelling HPI HPI OV-Lt Shoulder 09/11/23 - 3 month follow up: Details: Huber is a 68 year old right hand dominant male who presents in the office today for a post operative appointment s/p left biceps tenotomy and labral debridement with SAD,09/11/2023. Patient reports that he is having continued pain of the left shoulder. He is having stiffness and difficulty externally rotating his arm. [facility] Medical History (Updated 03/05/24 @ 10:55 by Spike Barbosa MD) Tubular adenoma of colon Diverticulosis GERD (gastroesophageal reflux disease) Alcohol dependence with unspecified alcohol-induced disorder Osteoarthritis of hips, bilateral Chronic left shoulder pain Anxiety and depression Erectile dysfunction Hyperlipidemia, unspecified Essential hypertension Type 2 diabetes mellitus with unspecified complications Atherosclerotic cardiovascular disease Stomach ulcer Surgical History Hx of colonoscopy S/P CABG (coronary artery bypass graft) Family History Father No problems noted. Mother Breast cancer Sister No problems noted. Social History Household Members: None Housing: Apartment Are you a primary healthcare financial analyst to a significant other at home: No Do you presently have visiting nurse or other home services: No 75 years or older and lives alone: No Patient Tobacco Use Status: Former Tobacco user Tobacco use type: Cigarette Physical Exam Vital Signs: BMI result Body Mass Index 27.8 Extrem Other: ER to 10deg Active abduction to 70 with scapular recruitment Assessment & Plan Assessment & Plan (1) SLAP (superior labrum from anterior to posterior) tear: Code(s): S43.439A - Superior glenoid labrum lesion of unspecified shoulder, initial encounter Category: Medical Plan: s/p biceps tenotomy and labral debridement. Continue ROM (2) Adhesive capsulitis of left shoulder: Code(s): M75.02 - Adhesive capsulitis of left shoulder Category: Medical Plan: Left shoulder post surgical adhesive capsulitis Orders: Orders PT Evaluation and Treatment Today M75.02 - Adhesive capsulitis of left shoulder, S43.439A - Superior glenoid labrum lesion of unspecified shoulder, initial encounter Coding Level of Care Code Est Pt Level 3 (59721) Diagnoses SLAP (superior labrum from anterior to posterior) tear S43.439A Adhesive capsulitis of left shoulder M75.02
== END 2024-03-05 10:57 | disposition home or self-care (01) ==
LOC: HO.HOS 10:27
PROVIDERS: PCP Internal Medicine; Visit Provider Orthopaedic Surgery
DX: S43.432A Superior glenoid labrum lesion of left shoulder, initial encounter (principal); M75.02 Adhesive capsulitis of left shoulder
CPT/HCPCS: 99213

== ENCOUNTER → 2024-03-05 10:27 | Outpatient (BNVA) | payer OTHER, SELFPAY | PROVIDERS: PCP Internal Medicine; Visit Provider Orthopaedic Surgery | DX: M75.02 Adhesive capsulitis of left shoulder (principal); S43.432A Superior glenoid labrum lesion of left shoulder, initial encounter; X58.XXXA Exposure to other specified factors, initial encounter; Y93.9 Activity, unspecified; Y92.9 Unspecified place or not applicable; Y99.9 Unspecified external cause status | CPT/HCPCS: 99212 ==

== ENCOUNTER 2024-05-05 09:50 | Outpatient (AMB) | payer OTHER, SELFPAY ==
[2024-05-05 10:03] VITALS: BMI 27.8
--- NOTE | 2024-05-05 10:03 | A.OFFVIS_ITS ---
Vital Signs 05/05/24 10:03 Height 5 ft 4 in Weight 162 lb BMI 27.8 Intake Visit Reasons: New Prob - left hand pain Intake Note: Huber is a 68 year old left hand dominant male who presents today with complaints of left hand pain for approximately 5 years now. Patient reports pain is located at the PIP joints of the 2nd, 3th, 4th, and 5th fingers. Reports numbness and tingling that occurs daily, constantly. Denies finger locking. Denies prior injuries or surgeries to the left hand. Patient states he has not had an EMG done. Professional Caster Required: Yes Professional Caster Language: Cable Splicing Technician Services: Professional Caster Present Professional Caster Name: ZENIA Swanson/BRODY Allergies ibuprofen Adverse Reaction (Intermediate, Verified 05/05/24 10:09) Swelling HPI HPI New Prob - left hand pain: Details: Huber is a 69 year old left hand dominant Ivorian speaking man who presents with complaints of left hand pain. He complains of pain across the dorsal aspect of his index, middle, ring, and small fingers and MCP joints when he makes a fist. He says they feel tight.. He says this has been present for ~5 years now. He says he performs exercises at home using a squeeze ball. He also complains of daily numbness & tingling in all of the fingers of his left hand. He says this is constant, and worse at night. He denies any numbness in his right hand. He denies any prior injuries. He has done some OT hand therapy for hand/wrist pain in the past, with limited relief. He denies any locking or catching. He says he used to do a lot of Street fighting when he was young man. He complains of pain & limited motion in his left shoulder, and says he has difficulty raising his arm above his head without pain. [facility] Medical History (Updated 05/05/24 @ 10:19 by Kavin Carmichael) Tubular adenoma of colon Diverticulosis GERD (gastroesophageal reflux disease) Alcohol dependence with unspecified alcohol-induced disorder Osteoarthritis of hips, bilateral Chronic left shoulder pain Anxiety and depression Erectile dysfunction Hyperlipidemia, unspecified Essential hypertension Type 2 diabetes mellitus with unspecified complications Atherosclerotic cardiovascular disease Stomach ulcer Surgical History Hx of colonoscopy S/P CABG (coronary artery bypass graft) Family History Father No problems noted. Mother Breast cancer Sister No problems noted. Social History (Updated 05/05/24 @ 10:12 by ZENIA Wolf) Household Members: None Housing: Apartment Are you a primary spiritual care coordinator to a significant other at home: No Do you presently have visiting nurse or other home services: No 75 years or older and lives alone: No Patient Tobacco Use Status: Former Tobacco user Tobacco use type: Cigarette Current occupation: left handed Review of Systems Const All systems reviewed & are unremarkable except as noted in HPI and below Physical Exam Vital Signs: BMI result Body Mass Index 27.8 Const General: cooperative, healthy appearing and no acute distress Orientation/consciousness: patient oriented x3 HEENT Head: Yes normocephalic and Yes atraumatic Eyes EOM: EOMs intact bilaterally Resp Effort & Inspection: normal respiratory effort and able to speak in complete sentences Cardio Jugular venous distension: no JVD Skin General skin exam: turgor normal Rashes: no rashes Neuro General: patient oriented x3 Extrem Other: Evaluation of Left Upper Extremity: The patient is alert, oriented, and in no acute distress Neuro: Dense numbness to the tips of all digits of the left hand No thenar or intrinsic wasting Good APB muscle belly firing and good finger cross Vascular: Cap refill brisk ROM: He can make a fist and extend all his digits When making a fist he has pain & tightness over the dorsal MCP & PIP joints, but he is able to make a fist. Skin: No lacerations or abrasions. General: No Ecchymosis. No Erythema or evidence of infection. Radiographs: 3 views of the left hand were taken and viewed by me today in clinic. There are no fractures or dislocations. He has some arthritic changes in the MCP joints of the index, middle, and ring fingers, with some peaking in the corners of the joints, and early osteophyte formation on the metacarpal heads. The joint space is preserved. Psych Appearance: grossly normal Affect: normal affect Attitude: cooperative Assessment & Plan Assessment & Plan (1) Numbness and tingling in left hand: Code(s): R20.0 - Anesthesia of skin; R20.2 - Paresthesia of skin Category: Medical (2) Osteoarthritis of left hand: Code(s): M19.042 - Primary osteoarthritis, left hand Category: Medical (3) Type 2 diabetes mellitus with unspecified complications: Code(s): E11.8 - Type 2 diabetes mellitus with unspecified complications Category: Medical Plan Assessment & Plan: 1. Left hand numbness With dense numbness in all digits I educated him about carpal & cubital tunnel syndrome I ordered a NCS to assess for peripheral nerve compression He will follow up when completed for review. 2. Left hand osteoarthritis Particularly the 2nd, 3rd and 4th MCP joints I educated him about this condition I discussed treatment options I recommend activity modification I discussed activity modification, he should work on ROM exercises daily at home. He should avoid any heavy gripping or impact activities, such as opening jars, and should consider assistive devices He has a Hx of street fighting when he was younger. Scribed for Leyla Liz MD by Kavin Carmichael, medical historian, on 05/05/24 at 10:20 AM, EST. Orders: Orders NE nerve conduction velocity Today R20.0 - Anesthesia of skin, R20.2 - Paresthesia of skin XR hand LT min 3V Today M79.642 - Pain in left hand Coding Level of Care Code New Pt Level 3 (75203) Diagnoses Numbness and tingling in left hand R20.0; R20.2 Osteoarthritis of left hand M19.042 Type 2 diabetes mellitus with unspecified complications E11.8
== END 2024-05-05 10:31 | disposition home or self-care (01) ==
PROVIDERS: PCP Internal Medicine; Visit Provider Orthopaedic Surgery
DX: R20.0 Anesthesia of skin (principal); R20.2 Paresthesia of skin; M19.042 Primary osteoarthritis, left hand; E11.8 Type 2 diabetes mellitus with unspecified complications
CPT/HCPCS: 99213

== ENCOUNTER 2024-05-05 13:40 | Outpatient (REF) | payer OTHER, SELFPAY ==
--- NOTE | ~2024-05-05 | XR_ITS ---
EXAMINATION: XR HAND, LEFT CLINICAL INFORMATION: Pain in the left hand. COMPARISON: None available. TECHNIQUE: PA, lateral, and oblique views of the left hand. FINDINGS: 3rd metacarpophalangeal joint: Marginal osteophytes without joint space narrowing indicative of mild osteoarthritis. Remaining bone and joints are normal. Incidental note made of arterial calcification. No marginal erosions. XR/XR hand LT min 3V IMPRESSION: 1. Mild osteoarthritis of the 3rd metacarpophalangeal joint. 2. Calcific atherosclerotic disease. Electronically signed by: Alexander Mirza MD 05/11/2024 02:57 PM EDT RP
== END 2024-05-05 13:41 | disposition home or self-care (01) ==
LOC: HO.HOSX 13:40
PROVIDERS: Visit Provider Orthopaedic Surgery
DX: M79.642 Pain in left hand (principal); R20.0 Anesthesia of skin; R20.2 Paresthesia of skin; M19.012 Primary osteoarthritis, left shoulder; E11.8 Type 2 diabetes mellitus with unspecified complications
CPT/HCPCS: 73130; 99212

== ENCOUNTER 2024-05-28 12:56 | Outpatient (REF) | payer OTHER, SELFPAY ==
--- NOTE | 2024-05-28 12:59 | EMG_ITS ---
Chief complaint: At least 5 years of numbness on left 5th to 2nd digits. Diabetic on insulin. Denies numbness in feet. Noted thinning of left FDI or 1st webspace. Reason for referral: Evaluate for Carpal Tunnel Syndrome Referred by: Dr. Liz Procedure done: Left upper extremity NCS/EMG Precautions and/or limitations: None Mexican speaking, seen with animal ride attendant. The limb temperature was monitored continuously and remained between 32-36 degrees C during the performance of the NCS. Ulnar motor NCS was performed with moderate elbow flexion between 70-90 degrees, with across-elbow distance of 10 cm. Nerve Conduction Studies Anti Sensory Summary Table ?Stim Site NR Onset (ms) Norm Onset (ms) Peak (ms) Norm Peak (ms) O-P Amp (?V) Norm O-P Amp Site1 Site2 Delta-0 (ms) Dist (cm) Nigel (m/s) Norm Nigel (m/s) Left Median Anti Sensory (2nd Digit) Wrist ? 2.6 3.3 <3.6 21.2 >10 Wrist 2nd Digit 2.6 14.0 54 Left Radial Anti Sensory (Thumb) Forearm ? 1.3 1.8 <3.1 6.6 Forearm Thumb 1.3 0.0 Left Ulnar Anti Sensory (5th Digit) Wrist ? 2.5 3.2 <3.7 9.9 >15.0 Wrist 5th Digit 2.5 14.0 56 Motor Summary Table ?Stim Site NR Onset (ms) Norm Onset (ms) O-P Amp (mV) Norm O-P Amp iAmp (mV) Amp (1st) (%) Site1 Site2 Delta-0 (ms) Dist (cm) Nigel (m/s) Norm Nigel (m/s) Left Median Motor (Abd Poll Brev) Wrist ? 3.5 <3.9 10.9 >4.5 13.5 100.0 Elbow Wrist 3.8 20.0 53 >45 Elbow ? 7.3 10.3 12.6 94.5 Left Ulnar Motor (Abd Dig Minimi) Wrist ? 2.7 <3.0 5.1 >5 6.1 100.0 B Elbow Wrist 3.9 19.0 49 >45 B Elbow ? 6.6 4.9 5.8 96.1 A Elbow B Elbow 1.5 10.0 67 >45 A Elbow ? 8.1 4.8 5.8 94.1 Left Ulnar Motor (FDI) Wrist ? 4.0 <3.0 5.5 >5 6.9 100.0 B Elbow Wrist 4.0 19.0 48 >45 B Elbow ? 8.0 5.0 6.3 90.9 A Elbow B Elbow 1.2 10.0 83 >45 A Elbow ? 9.2 5.3 6.8 96.4 EMG ?Side Muscle Nerve Root Ins Act Fibs Psw Amp Dur Poly Recrt Int Pat Comment Left 1stDorInt Ulnar C8-T1 Nml Nml Nml Nml Nml 0 Nml Complete Left Biceps Musculocut C5-6 Nml Nml Nml Nml Nml 0 Nml Complete Left Triceps Radial C6-7-8 Nml Nml Nml Nml Nml 0 Nml Complete Left Deltoid Axillary C5-6 Nml Nml Nml Nml Nml 0 Nml Complete Left FlexCarpiUln Ulnar C8,T1 Nml Nml Nml Nml Nml 0 Nml Complete FINDINGS: Left ulnar sensory nerve showed small amplitude. Left ulnar motor nerve, recording ADM, was within normal. But when recording at FDI, showed prolonged distal latencies. No conduction block across the elbow. All other nerves tested were within normal. Concentric needle EMG was performed in selected muscles of the left upper extremity. Study did not reveal signs of electric abnormalities as shown in the table above. IMPRESSION: 1. This is an abnormal study. 2. There is electrodiagnostic evidence suggestive of left chronic ulnar neuropathy, poorly localizable but suspect at the elbow. 3. There is no electrodiagnostic evidence for median neuropathy, brachial plexopathy, or cervical radiculopathy. Thank you for your kind referral. Viridiana Arevalo MD, LEROY Board Certified, [place] Board [employer] and Rehabilitation (ABPMR) Board Certified, [place] Board of Electrodiagnostic Medicine (ABEM) [place] [id number] [facility]
== END 2024-05-28 12:57 | disposition home or self-care (01) ==
LOC: HO.NEURO 12:56
PROVIDERS: PCP Internal Medicine; Visit Provider Orthopaedic Surgery
DX: R20.0 Anesthesia of skin (principal); R20.2 Paresthesia of skin
CPT/HCPCS: 95886; 95909

== ENCOUNTER → 2024-05-28 12:59 | Outpatient (BNV) | payer OTHER, SELFPAY | PROVIDERS: PCP Internal Medicine; Visit Provider Physical Medicine & Rehabilitation | DX: G56.22 Lesion of ulnar nerve, left upper limb (principal) | CPT/HCPCS: 95886; 95909 ==

== ENCOUNTER 2024-06-05 10:26 | Outpatient (AMB) | payer OTHER, SELFPAY ==
[2024-06-05 10:29] VITALS: BMI 27.8
--- NOTE | 2024-06-05 10:29 | MHC.OFFVIS ---
Vital Signs 06/05/24 10:29 Height 5 ft 4 in Weight 162 lb BMI 27.8 Intake Visit Reasons: OV-Lt Shoulder 09/11/23 - 3 month follow up Intake Note: Huber is a 68 year old right hand dominant male who presents in the office today for a post operative appointment s/p left biceps tenotomy and labral debridement with SAD,09/11/2023. Patient was recently seen with Dr. Liz for complaints of numbness and tingling in the left hand, an EMG was ordered Allergies ibuprofen Adverse Reaction (Intermediate, Verified 06/05/24 10:30) Swelling HPI HPI OV-Lt Shoulder 09/11/23 - 3 month follow up: Details: Huber is a 68 year old right hand dominant male who presents in the office today for a post operative appointment s/p left biceps tenotomy and labral debridement with SAD,09/11/2023. Patient reports that his shoulder is feeling worse than it was prior to surgery. He has increased pain with ROM, above the head and behind the back. Patient was recently seen with Dr. Liz for complaints of numbness and tingling in the left hand, an EMG was ordered [facility] Medical History Tubular adenoma of colon Diverticulosis GERD (gastroesophageal reflux disease) Alcohol dependence with unspecified alcohol-induced disorder Osteoarthritis of hips, bilateral Chronic left shoulder pain Anxiety and depression Erectile dysfunction Hyperlipidemia, unspecified Essential hypertension Type 2 diabetes mellitus with unspecified complications Atherosclerotic cardiovascular disease Stomach ulcer Surgical History Hx of colonoscopy S/P CABG (coronary artery bypass graft) Family History Father No problems noted. Mother Breast cancer Sister No problems noted. Social History Household Members: None Housing: Apartment Are you a primary landcare facilitator to a significant other at home: No Do you presently have visiting nurse or other home services: No 75 years or older and lives alone: No Patient Tobacco Use Status: Former Tobacco user Tobacco use type: Cigarette Current occupation: left handed Physical Exam Vital Signs: BMI result Body Mass Index 27.8 Extrem Other: On exam is external rotation is limited to 15 degrees compared to 40 degrees on his right. He has pain with Mcguire and Neer and painful but negative empty can Assessment & Plan Assessment & Plan (1) Adhesive capsulitis of left shoulder: Code(s): M75.02 - Adhesive capsulitis of left shoulder Category: Medical Plan: This is a 69-year-old gentleman with left shoulder pain continuing 8 months status post left shoulder arthroscopy. He does have evidence of postoperative adhesive capsulitis. I recommend physical therapy. He is clearly unhappy with his shoulder. I explained the condition of adhesive capsulitis in the importance of external rotation and avoiding overhead activities of the painful. I discussed injection versus therapy and he reluctantly agreed to do therapy. He may follow up in 3 months. Orders: Orders PT Evaluation and Treatment Today M75.02 - Adhesive capsulitis of left shoulder Coding Level of Care Code Est Pt Level 3 (04570) Diagnoses Adhesive capsulitis of left shoulder M75.02
== END 2024-06-05 11:25 | disposition home or self-care (01) ==
LOC: HO.HOS 10:27
PROVIDERS: PCP Internal Medicine; Visit Provider Orthopaedic Surgery
DX: M75.02 Adhesive capsulitis of left shoulder (principal)
CPT/HCPCS: 99213

== ENCOUNTER → 2024-06-05 10:26 | Outpatient (BNVA) | payer OTHER, SELFPAY | PROVIDERS: PCP Internal Medicine; Visit Provider Orthopaedic Surgery | DX: M75.02 Adhesive capsulitis of left shoulder (principal) | CPT/HCPCS: 99212 ==

== ENCOUNTER 2024-06-23 12:23 | Outpatient (AMB) | payer OTHER, SELFPAY ==
--- NOTE | 2024-06-23 12:39 | MHC.OFFVIS ---
Vital Signs 06/23/24 12:49 Height 5 ft 4 in Weight 162 lb BMI 27.8 Intake Visit Reasons: OV EMG review Lt hand Intake Note: Huber is a 69 year old left hand dominant male who presents today to review EMG results and evaluation of left hand pain. Assembler Rubber Footwear Required: Yes Assembler Rubber Footwear Language: Provisioning Analyst Services: Assembler Rubber Footwear Present Assembler Rubber Footwear Name: AMILCAR SwansonA/LM Allergies ibuprofen Adverse Reaction (Intermediate, Verified 06/23/24 12:50) Swelling HPI HPI OV EMG review Lt hand: Details: Huber is a 69 year old left hand dominant Norwegian speaking man who returns for a NCS review of his left hand numbness He complains of daily numbness & tingling in all of the fingers of his left hand. He says this is constant, and worse at night, and has been present for ~5 years. He says this began after he took some sort of Viagra-like pill in [place] and he developed sudden numbness in his hand. He denies any numbness in his right hand. He complains of pain in his left forearm, the base of his middle finger, and over his 5th MCP joint. He is wearing a forearm strap on his biceps. He denies any prior injuries. He has done some OT hand therapy for hand/wrist pain in the past, with limited relief. He denies any locking or catching. He says he used to do a lot of Street fighting when he was young man. He has Diabetes, CVD, a Hx of CABG, and a Hx of ETOH abuse. [facility] Medical History Tubular adenoma of colon Diverticulosis GERD (gastroesophageal reflux disease) Alcohol dependence with unspecified alcohol-induced disorder Osteoarthritis of hips, bilateral Chronic left shoulder pain Anxiety and depression Erectile dysfunction Hyperlipidemia, unspecified Essential hypertension Type 2 diabetes mellitus with unspecified complications Atherosclerotic cardiovascular disease Stomach ulcer Surgical History Hx of colonoscopy S/P CABG (coronary artery bypass graft) Family History Father No problems noted. Mother Breast cancer Sister No problems noted. Social History Household Members: None Housing: Apartment Are you a primary daycare manager to a significant other at home: No Do you presently have visiting nurse or other home services: No 75 years or older and lives alone: No Patient Tobacco Use Status: Former Tobacco user Tobacco use type: Cigarette Current occupation: left handed Physical Exam Vital Signs: BMI result Body Mass Index 27.8 Extrem Other: Evaluation of Left Upper Extremity: The patient is alert, oriented, and in no acute distress Neuro: Dense numbness to the tips of all digits of the left hand. Normal sensation superficial radial nerve distribution & dorsal ulnar aspect of hand No thenar or intrinsic wasting Good APB muscle belly firing and good finger cross Good ADduction & ABduction Vascular: Cap refill brisk ROM: He can make a fist and extend all his digits When making a fist he has pain & tightness over the dorsal MCP & PIP joints, but he is able to make a fist. Nerve Conduction Study: FINDINGS: Left ulnar sensory nerve showed small amplitude. Left ulnar motor nerve, recording ADM, was within normal. But when recording at FDI, showed prolonged distal latencies. No conduction block across the elbow. All other nerves tested were within normal. Concentric needle EMG was performed in selected muscles of the left upper extremity. Study did not reveal signs of electric abnormalities as shown in the table above. IMPRESSION: 1. This is an abnormal study. 2. There is electrodiagnostic evidence suggestive of left chronic ulnar neuropathy, poorly localizable but suspect at the elbow. 3. There is no electrodiagnostic evidence for median neuropathy, brachial plexopathy, or cervical radiculopathy. Viridiana Arevalo MD, LEROY 05/28/24 Assessment & Plan Assessment & Plan (1) Cubital tunnel syndrome on left: Code(s): G56.22 - Lesion of ulnar nerve, left upper limb Category: Medical (2) Numbness and tingling in left hand: Code(s): R20.0 - Anesthesia of skin; R20.2 - Paresthesia of skin Category: Medical (3) Osteoarthritis of left hand: Code(s): M19.042 - Primary osteoarthritis, left hand Category: Medical (4) Type 2 diabetes mellitus with unspecified complications: Code(s): E11.8 - Type 2 diabetes mellitus with unspecified complications Category: Medical (5) Atherosclerotic cardiovascular disease: Code(s): I25.10 - Atherosclerotic heart disease of ambler coronary artery without angina pectoris Category: Medical Plan Assessment & Plan: 1. Left Cubital tunnel syndrome With dense numbness all fingers X5 years Normal sensation to the dorsal and ulnar aspect of the hand No intrinsic wasting 2. Left hand numbness With dense numbness in the median nerve distribution X5 years No thenar wasting NCS from 05/28/24 was negative for carpal tunnel syndrome Consider repeat NCS in 6-12+ months from now if he continues to have numbness to reassess His finger numbness began after he took a Viagra-like pill from the [facility] NCS suggestive of possible left chronic neuropathy Does not explain normal sensation to the dorsal ulnar aspect of his hand I educated him about this condition I discussed operative and non-operative treatment options I am not sure that surgery would be helpful for him, and I am not recommending surgery at this time He will follow up in 6-9 months to see how he is doing. Consider ordering a repeat NCS at this time 3. Left lateral epicondylitis I educated him about this condition I discussed treatment options I recommend activity modification I discussed activity modification, he should work on ROM exercises daily at home, including stretching He should avoid any activities which cause him pain If his symptoms continue we can consider a referral to OT hand therapy 4. Left hand osteoarthritis Particularly the 2nd, 3rd and 4th MCP joints I educated him about this condition He should avoid any heavy gripping or impact activities, such as opening jars, and should consider assistive devices He has a Hx of street fighting when he was younger. Please note that greater than 45 minutes was spent with this patient going over the history, evaluating the patient and radiographs, formulating possible treatment options, discussing them with the patient, and documenting the visit. Scribed for Leyla Liz MD by Kavin Carmichael, medical office secretary, on 06/23/24 at 1:05 PM, EST. Coding Level of Care Code Est Pt Level 5 (84022) Diagnoses Cubital tunnel syndrome on left G56.22 Numbness and tingling in left hand R20.0; R20.2 Osteoarthritis of left hand M19.042 Type 2 diabetes mellitus with unspecified complications E11.8 Atherosclerotic cardiovascular disease I25.10
[2024-06-23 12:49] VITALS: BMI 27.8
== END 2024-06-23 13:45 | disposition home or self-care (01) ==
PROVIDERS: PCP Internal Medicine; Visit Provider Orthopaedic Surgery
DX: G56.22 Lesion of ulnar nerve, left upper limb (principal); R20.0 Anesthesia of skin; R20.2 Paresthesia of skin; M19.042 Primary osteoarthritis, left hand; E11.8 Type 2 diabetes mellitus with unspecified complications; I25.10 Atherosclerotic heart disease of native coronary artery without angina pectoris
CPT/HCPCS: 99215

== ENCOUNTER → 2024-06-23 12:23 | Outpatient (BNVA) | payer OTHER, SELFPAY | PROVIDERS: PCP Internal Medicine; Visit Provider Orthopaedic Surgery | DX: R20.0 Anesthesia of skin (principal); R20.2 Paresthesia of skin; M19.042 Primary osteoarthritis, left hand; I25.10 Atherosclerotic heart disease of native coronary artery without angina pectoris; E11.8 Type 2 diabetes mellitus with unspecified complications | CPT/HCPCS: 99212 ==

== ENCOUNTER 2024-07-10 10:25 | Outpatient (AMB) | payer OTHER, SELFPAY ==
--- NOTE | 2024-07-10 11:12 | A.OFFVIS_ITS ---
Intake Visit Reasons: Newprob-Left elbow tendonitis Intake Note: Huber is a 69 year old left hand dominant male who presents today for a evaluation of his left elbow pain. Patient reports ongoing pain for about a year. He does notice his middle finger is causing him a lot of pain which he uses a finger splint which gives him relief. Patient reports his left elbow is not bothering him as much today but his left hand is causing him a lot of pain, which he hasn't had a follow up with [facility] yet. Allergies ibuprofen Adverse Reaction (Intermediate, Verified 07/10/24 11:22) Swelling HPI HPI Newprob-Left elbow tendonitis: Details: 69-year-old left hand dominant male who is Estonian speaking, presents in the office today for an evaluation of left elbow pain. The patient was seen by Dr. Leyla Liz on 06/23/24 for left hand pain, numbness and tingling sensation. While in the office today, the patient reports experiencing left elbow pain ongoing for the past one year. He mentions that his middle finger is causing him to experience severe pain for which he uses a finger splint with relief. He reports left elbow pain; however, he mentions experiencing severe left hand pain , which is bothersome today. He has not had a follow-up with Dr. Leyla Liz yet for left hand pain. The patient has a history of diabetes mellitus and atherosclerotic heart disease. [facility] Medical History Tubular adenoma of colon Diverticulosis GERD (gastroesophageal reflux disease) Alcohol dependence with unspecified alcohol-induced disorder Osteoarthritis of hips, bilateral Chronic left shoulder pain Anxiety and depression Erectile dysfunction Hyperlipidemia, unspecified Essential hypertension Type 2 diabetes mellitus with unspecified complications Atherosclerotic cardiovascular disease Stomach ulcer Surgical History Hx of colonoscopy S/P CABG (coronary artery bypass graft) Family History Father No problems noted. Mother Breast cancer Sister No problems noted. Social History Household Members: None Housing: Apartment Are you a primary daycare teacher to a significant other at home: No Do you presently have visiting nurse or other home services: No 75 years or older and lives alone: No Patient Tobacco Use Status: Former Tobacco user Tobacco use type: Cigarette Current occupation: left handed Review of Systems Const All systems reviewed & are unremarkable except as noted in HPI and below Physical Exam Const General: cooperative, healthy appearing and no acute distress Resp Effort & Inspection: normal respiratory effort and able to speak in complete sentences Cardio Rate: regular rate Peripheral pulses: Peripheral pulses 2+ throughout GI Palpation (GI): Soft to palpation Skin Lesions: no lesions Rashes: no rashes Extrem Other: Neuro: Dense numbness to the tips of all digits of the left hand. Normal sensation superficial radial nerve distribution & dorsal ulnar aspect of hand No thenar or intrinsic wasting Good APB muscle belly firing and good finger cross Good ADduction & ABduction Vascular: Cap refill brisk ROM: He can make a fist and extend all his digits When making a fist he has pain & tightness over the dorsal MCP & PIP joints, but he is able to make a fist. Assessment & Plan Assessment & Plan (1) Cubital tunnel syndrome on left: Code(s): G56.22 - Lesion of ulnar nerve, left upper limb Category: Medical (2) Numbness and tingling in left hand: Code(s): R20.0 - Anesthesia of skin; R20.2 - Paresthesia of skin Category: Medical (3) Osteoarthritis of left hand: Code(s): M19.042 - Primary osteoarthritis, left hand Category: Medical (4) Type 2 diabetes mellitus with unspecified complications: Code(s): E11.8 - Type 2 diabetes mellitus with unspecified complications Category: Medical (5) Atherosclerotic cardiovascular disease: Code(s): I25.10 - Atherosclerotic heart disease of [place] coronary artery without angina pectoris Category: Medical Plan Mr. Richey is a 69-year-old left hand dominant male who is Estonian speaking, presents in the office today for an evaluation of left elbow pain. The patient was seen by Dr. Leyla Liz on 06/23/24 for left hand pain, numbness and tingling sensation. While in the office today, the patient reports experiencing left elbow pain ongoing for the past one year. He mentions that his middle finger is causing him to experience severe pain for which he uses a finger splint with relief. He reports left elbow pain; however, he mentions experiencing severe left hand pain, which is bothersome today. He has not had a follow-up with Dr. Leyla Liz yet for left hand pain. The patient has a history of diabetes mellitus and atherosclerotic heart disease. The patient will follow-up with Dr. Liz for continuity of care and elida nuing treatment. EMG study of the left upper extremity, obtained on 05/28/24, revealed: 1. This is an abnormal study. 2. There is electrodiagnostic evidence suggestive of left chronic ulnar neuropathy, poorly localizable but suspect at the elbow. 3. There is no electrodiagnostic evidence for median neuropathy, brachial plexopathy, or cervical radiculopathy. Patient Instructions: Scribed by Jaclyn Castorena medical research scientist, for Bhakti Butt PA-C on 07/10/24 at 11:35 am EST. Coding Level of Care Code Est Pt Level 3 (34907) Diagnoses Cubital tunnel syndrome on left G56.22 Numbness and tingling in left hand R20.0; R20.2 Osteoarthritis of left hand M19.042 Type 2 diabetes mellitus with unspecified complications E11.8 Atherosclerotic cardiovascular disease I25.10
== END 2024-07-10 11:49 | disposition home or self-care (01) ==
LOC: HO.HOS 10:25
PROVIDERS: PCP Internal Medicine; Visit Provider Physician Assistant
DX: G56.22 Lesion of ulnar nerve, left upper limb (principal); R20.0 Anesthesia of skin; R20.2 Paresthesia of skin; M19.042 Primary osteoarthritis, left hand; E11.8 Type 2 diabetes mellitus with unspecified complications; I25.10 Atherosclerotic heart disease of native coronary artery without angina pectoris
CPT/HCPCS: 99213

== ENCOUNTER → 2024-07-10 10:25 | Outpatient (BNVA) | payer OTHER, SELFPAY | PROVIDERS: PCP Internal Medicine; Visit Provider Physician Assistant | DX: G56.22 Lesion of ulnar nerve, left upper limb (principal); R20.0 Anesthesia of skin; M19.042 Primary osteoarthritis, left hand; I25.10 Atherosclerotic heart disease of native coronary artery without angina pectoris; E11.8 Type 2 diabetes mellitus with unspecified complications | CPT/HCPCS: 99212 ==

== ENCOUNTER 2024-10-19 12:51 | Outpatient (REF) | payer MEDICAID, SELFPAY ==
[2024-10-19 16:37] LABS: MANUAL DIFF FLAG NO
[2024-10-19 16:41] LABS: Basophils Percent Auto 0.3 % (0-2); Eosinophils Absolute Auto 0.1 X10*3/uL (0.0-0.4); Eosinophils Percent Auto 1.4 % (0-4); Hematocrit 40.2 % (42.0-52.0); Hemoglobin 13.3 g/dl (14.0-18.0); Imm Gran Abs Auto 0.04 X10*3/uL (0.00-0.03); Imm Gran Pct Auto 0.4 % (0.0-0.4); Mean Corpuscular HGB Conc 33.1 g/dl (31.0-36.0); Mean Corpuscular Hemoglobin 29.6 pg (27.0-33.0); Mean Corpuscular Volume 89.5 fL (80.0-98.0); Mean Platelet Volume 10.9 fL (9.4-12.4); Monocytes Absolute Auto 0.5 X10*3/uL (0.1-1.2); Monocytes Percent Auto 5.8 % (2-11); Neutrophils Absolute Auto 5.4 x10*3/uL (2.0-8.3); Neutrophils Percent Auto 59.1 % (45-73); Platelet Count 253 X10*3/uL (160-400); Red Blood Count 4.49 X10*6/uL (4.60-5.80); Red Cell Distribution Width 13.2 % (11.0-16.0); White Blood Count 9.1 X10*3/uL (4.8-10.8)
[2024-10-19 16:59] LABS: Alanine Aminotransferase 28 U/L (0-40); Albumin Level 4.5 g/dL (3.5-5.0); Alkaline Phosphatase 41 U/L (39-117); Anion Gap 14 (12-20); Aspartate Amino Transferase 29 U/L (5-37); Bilirubin Total 0.2 mg/dL (0.0-1.0); Blood Urea Nitrogen 28 mg/dL (9-16); Calcium 9.9 mg/dL (8.4-10.2); Carbon Dioxide 23 mmol/L (22-29); Chloride 107 mmol/L (96-108); Cholesterol 170 mg/dL (<200); Estimated Glomerular Filt Rate > 60; Glucose Random 179 mg/dL (60-115); HDL Cholesterol 46 mg/dL (>40); Potassium 4.9 mmol/L (3.3-5.1); Sodium 139 mmol/L (135-145); Total Protein 8.4 g/dL (6.5-8.0); Triglycerides 409 mg/dL (<150)
== END 2024-10-19 12:52 | disposition home or self-care (01) ==
LOC: HO.HHCL 12:51
PROVIDERS: Visit Provider Internal Medicine
DX: I10 Essential (primary) hypertension (principal); E11.40 Type 2 diabetes mellitus with diabetic neuropathy, unspecified
CPT/HCPCS: 36415; 80053; 80061; 85025

== ENCOUNTER 2024-10-29 10:22 | Outpatient (AMB) | payer OTHER, SELFPAY ==
[2024-10-29 10:26] VITALS: BP 122/66; PULSE 67; BMI 26.9
--- NOTE | 2024-10-29 10:26 | A.OFFVIS_ITS ---
Vital Signs 10/29/24 10:26 Height 5 ft 4 in Weight 156 lb 8.451 oz BMI 26.9 BP 122/66 Blood Pressure Location Lt brachial Position Sitting Pulse 67 Pulse Source Monitor Intake Visit Reasons: 1 yr /fup Rag Shredder Required: Yes Rag Shredder Name: PAUL [id number] Allergies ibuprofen Adverse Reaction (Intermediate, Verified 07/10/24 11:22) Swelling Medication List - Last Reviewed 10/29/24 by Nat Justice acetaminophen 1,000 mg PO Q8H PRN amlodipine 10 mg PO DAILY clopidogrel (Plavix) 75 mg PO DAILY dulaglutide (Trulicity) mg subcut QWEEK famotidine 20 mg PO BID fenofibrate nanocrystallized 48 mg PO DAILY fluoxetine 20 mg PO DAILY gabapentin 400 mg PO TID insulin glargine (Lantus Solostar U-100 Insulin) 26 - 36 units subcut QAM lisinopril 40 mg PO DAILY lorazepam 0.5 mg PO DAILY PRN metformin 1,000 mg PO BID metoprolol succinate ER 50 mg PO DAILY omeprazole 20 mg PO BID rosuvastatin 40 mg PO DAILY sennosides (senna) 17.2 mg PO DAILY sildenafil (Viagra) 100 mg PO DAILY PRN HPI Comments Details: Huber returns for follow-up regarding coronary artery disease. He underwent coronary artery bypass surgery in 2011. Multiple medical comorbidities including diabetes, hypertension, dyslipidemia among others. He had the bypass surgery in [place] and then moved to [place] and then more recently he is living here. He has had chronic sternotomy pains. Overall, no new concerns. He states he feels just about the same as before. No clear-cut angina. Otherwise, getting along as before. [facility] Medical History Tubular adenoma of colon Diverticulosis GERD (gastroesophageal reflux disease) Alcohol dependence with unspecified alcohol-induced disorder Osteoarthritis of hips, bilateral Chronic left shoulder pain Anxiety and depression Erectile dysfunction Hyperlipidemia, unspecified Essential hypertension Type 2 diabetes mellitus with unspecified complications Atherosclerotic cardiovascular disease Stomach ulcer Surgical History Hx of colonoscopy S/P CABG (coronary artery bypass graft) Family History Father No problems noted. Mother Breast cancer Sister No problems noted. Social History Household Members: None Housing: Apartment Are you a primary ostomy care nurse to a significant other at home: No Do you presently have visiting nurse or other home services: No 75 years or older and lives alone: No Patient Tobacco Use Status: Former Tobacco user Tobacco use type: Cigarette Current occupation: left handed Review of Systems Const Denies weakness ENT Denies dizziness Card Denies chest pain, Denies chest pain with activity, Denies syncope, Denies rapid heart rate, Denies pedal edema, Denies edema, Denies leg edema, Denies lightheadedness, Denies palpitations, Denies dyspnea, Denies dyspnea on exertion and Denies orthopnea Resp Denies cough, Denies dyspnea and Denies dyspnea on exertion GI Denies hematochezia and Denies change in stool character Musc Denies abnormal gait, Denies muscle cramps, Denies muscle weakness, Denies numbness, Denies radiating pain into limb and Denies tingling Neuro Denies abnormal gait, Denies dizziness, Denies syncope, Denies numbness, Denies tingling and Denies weakness Endo Denies palpitations Physical Exam Vital Signs: Last Vital Signs Pulse 67 10/29/24 10:26 BP 122/66 10/29/24 10:26 BMI result Body Mass Index 26.9 Const General: comfortable and no acute distress Orientation/consciousness: patient oriented x3 HEENT Other: Unremarkable Head: Yes normal to inspection Neck Neck: Yes normal visual inspection Chest Chest palpation & inspection: normal inspection of the chest Resp Auscultation: clear to auscultation bilaterally Cardio Palpation: normal PMI Heart sounds: S1 normal heart sound present, S2 normal heart sound present, no gallops, no murmurs and no rubs GI Palpation (GI): Soft to palpation Back/Spine/Pelvis Other: unremarkable Skin General skin exam: no rashes or lesions noted Neuro General: patient oriented x3 Extrem General: Yes normal to inspection Psych Mental Status: mental status grossly normal Office Procedures EKG Details: EKG with underlying sinus rhythm at 67/Min; cannot exclude old inferior infarct but could be from body habitus; [place] [address]-[id number], Complete Assessment & Plan Assessment & Plan (1) Atherosclerotic cardiovascular disease: Code(s): I25.10 - Atherosclerotic heart disease of [place] coronary artery without angina pectoris Category: Medical Plan: Echocardiogram -2021- low normal LVEF, 50-55%. Moderate diastolic dysfunction. Myocardial perfusion imaging study- 2022 -shows no ischemia. Diaphragmatic attenuation artifact versus nontransmural infarct in the basal inferolateral wall. He has been on Plavix as opposed to aspirin and unclear reason. No changes made. He is free of any angina. (2) Status post aorto-coronary artery bypass graft: Code(s): Z95.1 - Presence of aortocoronary bypass graft Category: Surgical Plan: Chronic sternotomy pain. (3) Type 2 diabetes mellitus with unspecified complications: Code(s): E11.8 - Type 2 diabetes mellitus with unspecified complications Category: Medical Plan: He is on insulin, Trulicity, metformin. Recent random sugar is 179 but there is no recent hemoglobin A1c. (4) Essential hypertension: Code(s): I10 - Essential (primary) hypertension Category: Medical Plan: On lisinopril/amlodipine. No changes. (5) Hyperlipidemia, unspecified: Code(s): E78.5 - Hyperlipidemia, unspecified Category: Medical Qualifiers: Hyperlipidemia type: unspecified Qualified Code(s): E78.5 - Hyperlipidemia, unspecified Plan: LDL 61; triglycerides 409. He is already on statins. It seems PCP had added fibrates. No changes. Coding Level of Care Code Est Pt Level 4 (55556) Complex EM visit Add On G2211 Diagnoses Atherosclerotic cardiovascular disease I25.10 Status post aorto-coronary artery bypass graft Z95.1 Type 2 diabetes mellitus with unspecified complications E11.8 Essential hypertension I10 Hyperlipidemia, unspecified hyperlipidemia type E78.5 Hyperlipidemia type: unspecified CPT Codes EKG - CPT: 90923-[id number], Complete ([id number])
--- OUTSIDE RECORDS SUMMARY | 2024-10-29 13:25 | XMS_ITS | Clinical Summary ---
Author Organization [facility] Address [address] [facility] [address] [place] [address] Phone Care Team Providers Care Certified Prosthetist/Orthotist Name Role Phone Joan Little MD Primary Care Provide r Medications acetaminophen (TYLENOL) 500 MG tablet Take 2 tablets by mouth every 8 (eight) hours if needed 08/31/2022 Active amLODIPine (NORVASC) 10 MG tablet Take 10 mg by mouth 1 (one) time each day in the morning 07/17/2023 Active Aspirin Adult Low Strength 81 MG EC tablet Take 81 mg by mouth 1 (one) time each day 05/06/2023 Active clopidogrel (PLAVIX) 75 MG tablet Take 75 mg by mouth 1 (one) time each day 05/06/2023 Active docusate sodium (COLACE) 100 MG capsule Take 100 mg by mouth 1 (one) time each day 06/19/2023 Active famotidine (PEPCID) 20 MG tablet Take 20 mg by mouth in the morning and 20 mg in the evening. 06/19/2023 Active gabapentin (NEURONTIN) 100 MG capsule Take 1 capsule by mouth at bed time 05/06/2023 Active gabapentin (NEURONTIN) 300 MG capsule Take 1 capsule by mouth in the morning and 1 capsule in the evening. 05/06/2023 Active gabapentin (NEURONTIN) 400 MG capsule Take 1 capsule by mouth in the morning and 1 capsule at noon and 1 capsule in the evening. 05/08/2023 Active Hydrocortisone, Perianal, 2.5 % cream Insert into the rectum twice a day 03/11/2023 Active insulin glargine (Lantus SoloStar) 100 UNIT/ML injection Inject 30 Units under the skin every night 04/15/2023 Active lisinopril 40 MG tablet Take 40 mg by mouth 1 (one) time each day 05/06/2023 Active metFORMIN (GLUCOPHAGE) 1000 MG tablet Take 1,000 mg by mouth in the morning and 1,000 mg in the evening. Take with meals. 05/06/2023 Active metoprolol succinate XL (TOPROL XL) 50 MG 24 hr tablet Take 1 tablet by mouth 1 (one) time each day 05/06/2023 Active polyethylene glycol (GLYCOLAX) 17 GM/SCOOP powder Take 17 g by mouth in the morning. 03/11/2023 Active rosuvastatin (CRESTOR) 40 MG tablet Take 40 mg by mouth 1 (one) time each day 05/06/2023 Active sildenafil (VIAGRA) 100 MG tablet Take 100 mg by mouth if needed 11/13/2022 Active Active Problems Problem Noted Date Diagnosed Date Chronic kidney disease, stage 2 (mild) Diabetic glomerulonephritis 08/08/2023 Dyslipidemia 08/08/2023 Proteinuria, not otherwise specified 08/08/2023 Hypertension 08/08/2023 Social History Tobacco Use Types Packs/Day Years Used Date Smoking Tobacco: Never Assessed Sex and Gender Information Value Date Recorded Sex Assigned at Not on file Legal Sex Male 12:52 PM EDT Gender Identity Not on file Sexual Orientation Not on file Plan of Treatment Health Maintenance Due Date Last Done Comments Colorectal Cancer Screening: Annual FOBT 2004 Colorectal Cancer Screening: Colonoscopy 2004 Colorectal Cancer Screening: Sigmoidoscopy 2004 Diabetes: Ophthalmology Exam 05/31/2023 Diabetes: Pedal Pulse Checked 05/31/2023 Diabetes: Sensory Foot Exam 05/31/2023 Diabetes: Visual Foot Exam 05/31/2023 Diabetes: Hemoglobin A1C 07/15/2023 04/15/2023 Influenza Vaccine (#1) 2024 Pneumococcal Vaccine: 65+ Years Completed 3 Hepatitis B Vaccine Aged Out No longe r eligible based on patient's age to complete this topic Insurance [facility] [place] [id number] Care Teams Certified Prosthetist/Orthotist Relationship Specialty Start Date End Date Joan Little MD [address] [place] [address] [place] [id number] PCP - General Internal Medicine 05/22/23
--- OUTSIDE RECORDS SUMMARY | 2024-10-29 13:25 | XMS_ITS | Encounter Summary ---
Author Organization [employer] Address [address] [facility] [address] [place] [address] Care Team Providers Care Oil Well Service Operator Name Role Phone Joan Little MD Primary Care Provide r Reason for Visit * Reason Onset Date Comments Plan of Care 10/21/2024 Encounter Details Date Type Department Care Team ([facility] st Contact Info) Description 10/21/2024 Telephone [facility] [address] [place] [address] Joan Little MD [address] [place] [address] Plan of Care Social History Tobacco Use Types Packs/Day Years Used Date Smoking Tobacco: Former Cigarettes Q uit: 2009 Passive Smoke Exposure: Past Smokeless Tobacco: Never Alcohol Use Standard Drinks/Week Comments Yes 3 (1 standard drink = 0.6 oz pur e alcohol) Occasionally Alcohol Answer Date Recorded Q1: How often do you have a drink containing alc ohol? 3 02/11/2023 Average Number of Drinks Not on file 023 Q3: How often do you have si x or more drinks on one occasion? 2 02/11/2023 Depression Answer Date Recorded Patient Health Questionnaire-9 Score 5 10/19/2024 Patient Health Questionnaire-9 Score 5 10/19/2024 Last PHQ-9: Questionnaire Data Not on file 0 10/19/2024 Housing Stability Answer Date Recorded What is your housing situation today? I have eric mai 03/04/[address] you li ve. Do you have problems with any of the following? None of the above 03/04/2024 Food Insecurity Answer Date Recorded Within the past 12 months, y ou worried that your food would run out before you got money to buy more: Never True 03/04/2024 Within the past 12 months,th e food you bought just didn't last and you didn't have enough money to get more: Never True Transportation Answer Date Recorded In the past 12 months, has l ack of transportation kept you from medical appts, meetings, work or from getting things needed for daily living? Yes, it has kept me from non-medical meetings, work, or getting things that I need 10/09/2024 Utilities Answer Date Recorded In the past 12 months, has t he electric, gas, oil or water company threatened to shut off services in your home? No 03/04/2024 Depression Answer Date Recorded Patient Health Questionnaire-2 Score 3 10/19/2024 Internet Access Answer Date Recorded Internet Access Q1 Yes 04/06/2024 Internet Access Q2 Not on file 04/06/2024 Sex and Gender Information Value Date Recorded Sex Assigned at Male 06/04/2022 10:14 AM EDT Legal Sex Male 10:14 AM EDT Gender Identity Male 06/04/2022 10:14 AM EDT Sexual Orientation Straight 06/04/2022 10 :14 AM EDT documented as of this encounter Miscellaneous Notes * Telephone Encounter - Nini Cabezas RN - 10/21/2024 2:28 PM EDT Advised patient that Dr. Ty reviewed his labs and his triglycerides were elevated at 409. Reviewed dietary/ lifestyle modifications. Advised patient that Dr. Ty ordered a new medication -Fenofibrate which was sent to [facility] pharmacy. All question answered. Patient verbalizes understandingand agreement with plan of care at this time. [employer] [id number] ----- Message from Joan Santos MD sent at 10/21/2024 1:54 PM EDT ----- Please let patient know I reviewed his labs triglycerides are very high I started him on a medication to be picked up at pharmacy thank you documented in this encounter Plan of Treatment Not on file documented as of this encounter Visit Diagnoses Not on filedocumented in this encounter Additional Health Concerns Assessment Noted Time PHQ-9 Depression Total Score: 5 10/20/19 25 1:17 PM EDT documented as of this encounter Care Teams Oil Well Service Operator Relationship Specialty Start Date End Date Joan Little MD [address] [place] [address] PCP - General Family Medicine 05/10/22 documented as of this encounter
--- OUTSIDE RECORDS SUMMARY | 2024-10-29 13:25 | XMS_ITS | Encounter Summary ---
Author Organization [employer] Address [address] [facility] [address] [place] [address] Care Team Providers Care Mental Health Counselor Name Role Phone Joan Little MD Primary Care Provide r Encounter Details Date Type Department Care Team (Latest Contact Info) Description 10/21/2024 Orders Only [facility] [address] [place], [place] [phone] Joan Little MD [address] [place], [place] [phone] Hypertriglyceridemia (Primary Dx) Social History Tobacco Use Types Packs/Day Years [...] AM EDT documented as of this encounter Plan of Treatment Not on file documented as of this encounter Visit Diagnoses Diagnosis Hypertriglyceridemia- Primary Pure hyperglyceridemia documented in this encounter Additional Health Concerns Assessment Noted Time PHQ-9 Depression Total Score: 5 10/20/19 25 1:17 PM EDT documented as of this encounter Care Teams Mental Health Counselor Relationship Specialty Start Date End Date Joan Little MD [address] [place] [id number] PCP - General Family Medicine 05/10/22 documented as of this encounter
--- OUTSIDE RECORDS SUMMARY | 2024-10-29 13:26 | XMS_ITS | Encounter Summary ---
Author Organization [facility] Address [address] [facility] [address] [place] [address] Care Team Providers Care Lead Generation Specialist Name Role Phone Joan Little MD Primary Care Provide r Reason for Visit * Reason Comments Pre-visit Planning SDOH screening negat simon and tobacco screening negative Encounter Details Date Type Department Care Team ([facility] st Contact Info) Description 10/09/2024 Patient Outreach [facility] [address] [place] [address] Joan Little MD [address] [place], [place] [phone] Pre-visit Planning (SDOH screening negative and tobacco screening negative) Social History Tobacco Use Types Packs/Day Years [...] Answer Date Recorded Patient Health Questionnaire-9 Score 0 06/18/2024 Patient Health Questionnaire-9 Score 0 06/18/2024 Last PHQ-9: Questionnaire Data Not on file 1 08/18/2023 Housing Stability Answer Date Recorded What is [...] Answer Date Recorded Patient Health Questionnaire-2 Score 0 06/18/2024 Internet Access Answer Date Recorded Internet Access Q1 Yes 04/06/2024 Internet Access Q2 Not on file 04/06/2024 Sex and Gender Information Value Date Recorded Sex Assigned at Male 06/04/2022 10:14 AM EDT Legal Sex Male 10:14 AM EDT Gender Identity Male 06/04/2022 10:14 AM EDT Sexual Orientation Straight 06/04/2022 10 :14 AM EDT documented as of this encounter Progress Notes * Marlene Samano - 10/09/2024 1:36 PM EST CC Marlene placed successful outbound call to patient for pre-visit planning. Patient name and confirmed. Patient confirms appt date and time, and has transportation. Biggest concern for appointment at this time is flu Patient advised to bring to appointment a photo id and insurance card. Appropriate screenings completed in anticipation of appointment. documented in this encounter Plan of Treatment Not on file documented as of this encounter Visit Diagnoses Not on filedocumented in this encounter Additional Health Concerns Assessment Noted Time PHQ-9 Depression Total Score: 0 06/18/20 24 10:59 AM EST documented as of this encounter Care Teams Lead Generation Specialist Relationship Specialty Start Date End Date Joan Little MD [address] [place] [address] PCP - General Family Medicine 05/10/22 documented as of this encounter
--- OUTSIDE RECORDS SUMMARY | 2024-10-29 13:26 | XMS_ITS | Encounter Summary ---
Author Organization [employer] Address [address] [facility] [address] [place] [address] Care Team Providers Care Welder Fitter Arc Name Role Phone Joan Little MD Primary Care Provide r Reason for Visit * Reason Onset Date Comments Med B form 09/29/2024 Encounter Details Date Type Department Care Team ([facility] st Contact Info) Description 09/29/2024 Telephone [facility] [address] [place] [address] Joan Little MD [address] [place] [address] Med B form Social History Tobacco Use Types Packs/Day Years [...] from getting things needed for daily living? No 03/04/2024 Utilities Answer Date Recorded In the past [...] encounter Miscellaneous Notes * Telephone Encounter - Kika Walton RN - 09/29/2024 1:17 PM EST RN received med B form for freestyle lite test strips. PCP has signed and RN has faxed to [phone], confirmation page received. documented in this encounter Plan of Treatment Not on file documented as of this encounter Visit Diagnoses Not on filedocumented in this encounter Additional Health Concerns Assessment Noted Time PHQ-9 Depression Total Score: 0 06/18/20 24 10:59 AM EST documented as of this encounter Care Teams Welder Fitter Arc Relationship Specialty Start Date End Date Joan Little MD [address] [place] [address] PCP - General Family Medicine 05/10/22 documented as of this encounter
--- OUTSIDE RECORDS SUMMARY | 2024-10-29 13:26 | XMS_ITS | Encounter Summary ---
Author Organization [employer] Address [address] [facility] 7t [place] [address] Care Team Providers Care Primary Teaching Assistant Name Role Phone Joan Little MD Primary Care Provide r Reason for Visit * Reason Comments Med Refill Encounter Details Date Type Department Care Team ([facility] st Contact Info) Description 06/18/2024 Refill [facility] [address] [place] [phone] Joan Little MD [address] [place] [address] Depressive disorder; Allergic cough; Essential hypertension Social History Tobacco Use Types Packs/Day Years [...] as of this encounter Visit Diagnoses Diagnosis Depressive disorder Depressive disorder, not elsewhere classified Allergic cough Cough Essential hypertension Unspecified essential hypertension documented in this encounter Additional Health Concerns Assessment Noted Time PHQ-9 Depression Total Score: 0 06/18/20 24 10:59 AM EST documented as of this encounter Care Teams Primary Teaching Assistant Relationship Specialty Start Date End Date Joan Little MD [address] [place] [address] PCP - General Family Medicine 05/10/22 documented as of this encounter
--- OUTSIDE RECORDS SUMMARY | 2024-10-29 13:26 | XMS_ITS | Encounter Summary ---
Author Organization [employer] Address [address] [facility] 7[address] [place] [address] Care Team Providers Care Secured Entrance Monitor Name Role Phone Joan Little MD Primary Care Provide r Reason for Visit * Reason Comments Med Refill Encounter Details Date Type Department Care Team ([facility] st Contact Info) Description 07/19/2023 Refill [facility] [address] [place], [place] [phone] Joan Little MD [address] [place] [address] Social History Tobacco Use Types Packs/Day Years Used Date Smoking Tobacco: Never Passive Smoke Exposure: Never Smokeless Tobacco: Never Alcohol Use Standard Drinks/Week Comments Yes 4 (1 standard drink = 0.6 oz pur e alcohol) Occasionally Alcohol Answer Date Recorded Q1: How often do you have a drink containing alc ohol? 3 02/11/2023 Average Number of Drinks Not on file 023 Q3: How often do you have si x or more drinks on one occasion? 2 02/11/2023 Depression Answer Date Recorded Patient Health Questionnaire-9 Score 7 02/11/2023 Housing Stability Answer Date Recorded What is your housing situation today? I have eric mai 05/22/[address] you li ve. Do you have problems with any of the following? None of the above 05/22/2023 Food Insecurity Answer Date Recorded Within the past 12 months, y ou worried that your food would run out before you got money to buy more: Never True 05/22/2023 Within the past 12 months,th e food you bought just didn't last and you didn't have enough money to get more: Never True Transportation Answer Date Recorded In the past 12 months, has l ack of transportation kept you from medical appts, meetings, work or from getting things needed for daily living? No 05/22/2023 Utilities Answer Date Recorded In the past 12 months, has t he electric, gas, oil or water company threatened to shut off services in your home? No 05/22/2023 Depression Answer Date Recorded Patient Health Questionnaire-2 Score 6 02/11/2023 Sex and Gender Information Value Date Recorded [...] Assessment Noted Time PHQ-9 Depression Total Score: 7 02/12/20 23 10:01 AM EDT documented as of this encounter Care Teams Secured Entrance Monitor Relationship Specialty Start Date End Date Joan Little MD [address] [place] [address] PCP - General Family Medicine 05/10/22 documented as of this encounter
--- OUTSIDE RECORDS SUMMARY | 2024-10-29 13:26 | XMS_ITS | Encounter Summary ---
Author Organization [employer] Address [address] [place] [address] 7 [place] [address] Care Team Providers Care Medical Sonographer Name Role Phone Joan Little MD Primary Care Provide r Reason for Referral * Consultation (Routine) - Authorized Specialty Diagnoses / Procedures Referred By Contac t Referred To Contact Cardiology Diagnoses Essential hypertension Joan Little MD [address] [place] [id number] Phone: tel: fax: [address] Phone: tel: fax: Referral ID Status Reason Start Date Expiration Date Visits Requested Visits Authorized [id number] Authorized Specialty Services Required 10/19/2024 10/19/2025 1 1 Reason for Visit * Reason Comments Chronic condition Encounter Details Date Type Department Care Team (Latest Contact Info) Description 10/19/2024 11:15 AM EDT Office Visit [facility] [address] [place], [place] [phone] Joan Little MD [address] [place], [place] [phone] Essential hypertension (Primary Dx); Type 2 diabetes mellitus with diabetic neuropathy, without long-term current use of insulin ([facility]); Anxiety with depression; Both eyes affected by mild nonproliferative diabetic retinopathy with macular edema, associated with type 2 diabetes mellitus (CMS/HCC); Need for vaccination Social History Tobacco Use Types Packs/Day Years Used Date Smoking Tobacco: Former Cigarettes Q uit: 2009 Passive Smoke Exposure: Past Smokeless Tobacco: Never Tobacco Cessation:Counseling Given: Not Answered Alcohol Use Standard Drinks/Week Comments Yes 3 [...] AM EDT documented as of this encounter Last Filed Vital Signs Vital Sign Reading Time Taken Comments Blood Pressure 120/76 10/19/2024 11:06 AM EDT Pulse 83 10/19/2024 11:06 AM EDT Temperature 36.2 ??C (97.2 ??F) 10/19/2024 11:06 AM E DT Respiratory Rate 20 10/19/2024 11:06 AM EDT Oxygen Saturation - - Inhaled Oxygen Concentration - - Weight 73 kg (161 lb) 10/19/2024 11:06 AM EDT Height 162.6 cm (5' 4 ) 10/19/2024 11:06 AM EDT Body Mass Index 27.64 10/19/2024 11:06 AM EDT documented in this encounter Progress Notes * Joan Santos MD - 10/19/2024 11:15 AM EDT SUBJECTIVE: Huber Richey is a 69 y.o. year old male who presents for Chronic Disease Management . Acute Concerns: Patient reports he has no family near by and is alone all the time he feels his anxiety and depression is not well-controlled reports he is taking his medication every day he would like to have a therapist he used to have 1 but not anymore Social History Social History Narrative Lives on a 4th floor apartment with AFAB partner, has elevator access. Has 1 daughter lives in [place]. He's disabled since age 50. Patient Active Problem List Diagnosis Anxiety state Chronic left shoulder pain Depressive disorder Erectile dysfunction Essential hypertension Hand pain Hemorrhage of rectum and anus Lumbar back pain Primary osteoarthritis of both hips Pure hypercholesterolemia Type 2 diabetes mellitus with diabetic neuropathy, without long-term current use of insulin ([facility]) Chronic hand pain, left Encounter for preventive health examination Encounter for colorectal cancer screening Herpes zoster with complication Bleeding per rectum Atypical chest pain Osteoarthritis of spine with radiculopathy, lumbosacral region Gastroesophageal reflux disease without esophagitis Stage 2 chronic kidney disease Excessive cerumen in both ear canals 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 HENT: Negative. Respiratory: Negative. Cardiovascular: Negative. Psychiatric/Behavioral: The patient is nervous/anxious. OBJECTIVE: Vitals: 10/19/24 1106 BP: 120/76 BP Location: Left arm Patient Position: Sitting BP Cuff Size: Adult Pulse: 83 Resp: 20 Temp: 97.2 ??F (36.2 ??C) TempSrc: Temporal Weight: 161 lb (73 kg) Height: 5' 4 (1.626 m) Physical Exam Constitutional: Appearance: Normal appearance. Cardiovascular: Rate and Rhythm: Normal rate and regular rhythm. Pulmonary: Effort: Pulmonary effort is normal. Breath sounds: Normal breath sounds. Abdominal: General: Abdomen is flat. Palpations: Abdomen is soft. Musculoskeletal: Right lower leg: No edema. Left lower leg: No edema. Neurological: Mental Status: He is alert. Follow Up: No follow-ups on file. Current Outpatient Medications on File Prior to Visit Medication Sig Dispense Refill acetaminophen (Tylenol) 500 MG tablet Take 2 tablets by oral every 8 hrs as needed not to exceed 8 tablets per 24hrs 60 tablet 1 amLODIPine (Norvasc) 10 MG tablet Take 1 tablet (10 mg) by mouth in the morning. 30 tablet 2 amoxicillin-clavulanate (Augmentin) 875-125 MG tablet Take 1 tablet by mouth 2 times daily. 14 tablet 0 Aspirin Low Dose 81 MG EC tablet TAKE 1 TABLET BY MOUTH EVERY DAY 90 tablet 2 Blood Glucose Monitoring Suppl (Blood Glucose Monitor System) w/Device kit Use to monitor glucose 1kit 0 Blood Glucose Monitoring Suppl (FreeStyle Ripley Lite) w/Device kit 1 each by Subcutaneous Infusion route in the morning. cetirizine (ZyrTEC) 10 MG tablet Take 1 tablet (10 mg) by mouth Once per day. 30 tablet 2 clopidogrel (Plavix) 75 MG tablet TAKE 1 TABLET BY MOUTH EVERY DAY 90 tablet 2 Continuous Blood Gluc Pairer Substandard (FreeStyle Caitlin 2 [place]) device Scan sensor every 8 hours 60 each 0 Continuous Glucose Sensor (FreeStyle Caitlin 2 Sensor) [facility] USE TO CHECK BLOOD SUGAR AND CHANGE EVERY14 DAYS 2 each 3 docusate sodium (Colace) 100 MG capsule Take 1 capsule (100 mg) by mouth in the morning. 30 capsule1 Dulaglutide (Trulicity) 1.5 MG/0.5ML solution auto-injector Inject 0.5 mL (1.5 mg) under the skin 1(one) time per week. 9 mL 1 empagliflozin (Jardiance) 10 MG Take 1 tablet (10 mg) by mouth Once per day. 90 tablet 1 famotidine (Pepcid) 20 MG tablet Take 1 tablet (20 mg) by mouth 2 times daily. 180 tablet 0 FLUoxetine (PROzac) 20 MG capsule Take 1 capsule (20 mg) by mouth Once per day. TAKE 1 CAPSULE BY MOUTH EVERY DAY IN THE MORNING 30 capsule 2 FREESTYLE LITE test strip TEST BLOOD SUGAR TWICE DAILY DIRECTED 100 strip 3 gabapentin (Neurontin) 100 MG capsule TAKE 1 CAPSULE BY MOUTH EVERY NIGHT 90 capsule 2 gabapentin (Neurontin) 300 MG capsule Take 1 capsule (300 mg) by mouth 2 times daily. 180 capsule 2 gabapentin (Neurontin) 400 MG capsule TAKE 1 CAPSULE BY MOUTH THREE TIMES DAILY 90 capsule 1 hydrocortisone (Anusol-HC) 2.5 % rectal cream Insert into the rectum 2 times daily. 30 g 0 insulin glargine (Lantus SoloStar) 100 UNIT/ML pen Inject 30 Units under the skin at bedtime. 3 mL 12 lisinopril 40 MG tablet TAKE 1 TABLET BY MOUTH EVERY DAY 90 tablet 2 metFORMIN (Glucophage) 1000 MG tablet TAKE 1 TABLET BY MOUTH TWICE DAILY WITH BREAKFAST AND WITH DINNER 180 tablet 2 metoprolol succinate XL (Toprol-XL) 50 MG 24 hr tablet TAKE 1 TABLET BY MOUTH EVERY DAY 90 tablet 2 Pentips 32G X 4 MM misc USE DIRECTED 100 each 2 polyethylene glycol, PEG, 3350 (MiraLax) 17 GM/SCOOP powder Take 17 g by mouth in the morning. 527 g 0 rosuvastatin (Crestor) 40 MG tablet TAKE 1 TABLET BY MOUTH EVERY DAY 90 tablet 2 senna (Senokot) 8.6 MG tablet TAKE 2 TABLETS BY MOUTH DAILY AT BEDTIME FOR CONSTIPATION TRUEplus Lancets 33G misc TEST BLOOD SUGAR TWICE DAILY DIRECTED 100 each 11 Viagra 100 MG tablet TAKE 1 TABLET 1 HOUR BEFORE SEXUAL RELATIONS ONCE DAILY NEEDED. 15 tablet 3 [DISCONTINUED] omeprazole (PriLOSEC) [address] capsule Take 1 capsule (20 mg) by mouth before breakfast and before evening meal. 90 capsule 1 No current facility-administered medications on file prior to visit. Problem List Items Addressed This Visit Type 2 diabetes mellitus with diabetic neuropathy, without long-term current use of insulin ([facility]) Diabetes is: almost at goal - Lab Results Component Value Date HGBA1C 7.7 (A) 10/19/2024 HGBA1C 9.4 (A) 06/18/2024 HGBA1C 7.7 (A) 03/17/2024 - Lab Results Component Value Date MICROALBUR 296.0 05/10/2023 CREATININE 1.06 12/02/2023 -Changes: None - Diabetic eye exam: Up-to-date - Diabetic foot exam: - Continue lifestyle modific pending ations - Continue current medications - Follow up: 3 months Relevant Orders POCT Glucose (Completed) POCT HGB A1C (Completed) CBC auto differential Comprehensive Metabolic Panel Lipid Panel, Standard Essential hypertension - Primary I advised: - Aerobic exercise to reduce BP. Initial goal of 30 min walk 3-5x/week. Increase as tolerated. - low-sodium diet (goal: <2g/day) and heart healthy diet such as DASH to reduce BP and prevent ASCVD. - Home BP monitoring 1-2 x day with goal of <140/90. - Seek immediate medical attention for chest pain, palpitations, SOB, syncope, or sudden changes inmental status. - Do not change or discontinue current prescriptions without first consulting health care provider Relevant Orders CBC auto differential Comprehensive Metabolic Panel Lipid Panel, Standard Referral to Cardiology Anxiety with depression Counseling done today N was called Continue with fluoxetine 20 mg daily Both eyes affected by mild nonproliferative diabetic retinopathy with macular edema, associated with type 2 diabetes mellitus ([facility]) Other Visit Diagnoses Need for vaccination Relevant Orders Flu vaccine greater than or equal to 6 months old, preservative free IM (Completed) documented in this encounter Miscellaneous Notes * Assessment & Plan Note - Joan Santos MD - 10/19/2024 2:12 PM EDT Associated Problem(s): Anxiety with depression Counseling done today N was called Continue with fluoxetine 20 mg daily * Assessment & Plan Note - Joan Santos MD - 10/19/2024 2:12 PM EDT Associated Problem(s): Essential hypertension I advised: - Aerobic exercise to reduce BP. Initial goal of 30 min walk 3-5x/week. Increase as tolerated. - low-sodium diet (goal: <2g/day) and heart healthy diet such as DASH to reduce BP and prevent ASCVD. - Home BP monitoring 1-2 x day with goal of <140/90. - Seek immediate medical attention for chest pain, palpitations, SOB, syncope, or sudden changes in mental status. - Do not change or discontinue current prescriptions without first consulting health care provider * Assessment & Plan Note - Joan Santos MD - 10/19/2024 2:11 PM EDT Associated Problem(s): Type 2 diabetes mellitus with diabetic neuropathy, without long-term currentuse of insulin ([facility]) Diabetes is: almost at goal - Lab Results Component Value Date HGBA1C 7.7 (A) 10/19/2024 HGBA1C 9.4 (A) 06/18/2024 HGBA1C 7.7 (A) 03/17/2024 - Lab Results Component Value Date MICROALBUR 296.0 05/10/2023 CREATININE 1.06 12/02/2023 -Changes: None - Diabetic eye exam: Up-to-date - Diabetic foot exam: - Continue lifestyle modific pending ations - Continue current medications - Follow up: 3 months documented in this encounter Plan of Treatment Scheduled Referrals Name Type Priority Associated Diagnoses Orde r Schedule Referral to Cardiology Outpatient Referral Routine Essential hypertension Expected: 10/19/2024 (Approximate), Expires: 10/19/2025 documented as of this encounter Procedures Procedure Name Priority Date/Time Associated Diagnosis Comments CBC WITH AUTO DIFFERENTIAL Routine 10/19/2024 12:53 PM EDT Type 2 diabetes mellitus with diabetic neuropathy, without long-term current use of insulin ([facility]) Essential hypertension LIPID PANEL, STANDARD Routine 10/19/2024 12:53 PM EDT Type 2 diabetes mellitus with diabetic neuropathy, without long-term current use of insulin ([facility]) Essential hypertension COMPREHENSIVE METABOLIC PANEL Routine 10/19/2024 12:53 PM EDT Type 2 diabetes mellitus with diabetic neuropathy, without long-term current use of insulin ([facility]) Essential hypertension POCT GLYCATED HEMOGLOBIN, TOTAL Routine 10/19/2024 11:13 AM EDT Type 2 diabetes mellitus with diabetic neuropathy, without long-term current use of insulin ([facility]) POCT GLUCOSE Routine 10/19/2024 11:08 AM EDT Type 2 diabetes mellitus with diabetic neuropathy, without long-term current use of insulin ([facility]) documented in this encounter Results * (ABNORMAL) Lipid Panel, Standard (10/19/2024 12:53 PM EDT) Triglycerides 409(H) <150 mg/dL [facility] Comment:Desirable Triglyceri de: less than 150 mg/dLBorderline High Triglyceride 150-199 mg/dLHigh Triglyceride: 200-499 mg/dLVery High Triglyceride: greater than or equal to 5OO mg/dL Cholesterol 170 <200 mg/dL [facility] Comment:Desirable Cholestero l: less than 200 mg/dLBorderline High Cholesterol: 200-239 mg/dLHigh Cholesterol: greater than 239 mg/dL LDL Cholesterol Calculated TNP <100 mg/dL [facility] Comment:Unable to calculate the LDL. The formula of Friedwald,Mendez, and Anders is only valid if the triglycerides areless than 400 mg/dl. HDL Cholesterol 46 >40 mg/dL [facility] Comment:Desirable HDL: great er than 40 mg/dL Note: This HDL assay may give artificially low results in patients with liver disease. Blood Venous blood specimen / Unknown 10/19/2024 12:53 PM EDT 10/19/2024 4:29 PM EDT us Joan Santos MD LAB BLOOD ORDERABLES Final Result [facility] [address] [place] [phone] * (ABNORMAL) Comprehensive Metabolic Panel (10/19/2024 12:53 PM EDT) Sodium 139 135 - 145 mmol/L [facility] Potassium 4.9 3.3 - 5.1 mmol/L [facility] Chloride 107 96 - 108 mmol/L [facility] Carbon Dioxide 23 22 - 29 mmol/L [facility] Anion Gap 14 12 - 20 [facility] Urea Nitrogen (BUN) 28(H) 9 - 16 mg/dL [facility] Creatinine, Serum 1.16 0.5 - 1.4 mg/dL [facility] Estimated Glomerular Filt Rate >60 [facility] Comment:Chronic Kidney Disea se: Estimated GFR < 60 mL/min/[id number] Kidney Disease: Estimated GFR < 15 mL/min/1.73m2 Glucose 179(H) 60 - 115 mg/dL [facility] Calcium 9.9 8.4 - 10.2 mg/dL [facility] Bilirubin, Total 0.2 0.0 - 1.0 mg/dL [facility] Aspartate Amino Transferase 29 5 - 37 U/L [facility] Alanine Aminotransferase 28 0 - 40 U/L [facility] Total Protein 8.4(H) 6.5 - 8.0 g/dL [facility] Albumin Level 4.5 3.5 - 5.0 g/dL [facility] Alkaline Phosphatase 41 39 - 117 U/L [facility] Blood Venous blood specimen / Unknown 10/19/2024 12:53 PM EDT 10/19/2024 4:29 PM EDT us Joan Santos MD LAB BLOOD ORDERABLES Final Result [facility] [address] [place], [place] [phone] * (ABNORMAL) CBC auto differential (10/19/2024 12:53 PM EDT) White Blood Count 9.1 4.8 - 10.8 X10*3/uL [facility] Red Blood Count 4.49(L) 4.60 - 5.80 X10*6/uL [facility] Hemoglobin 13.3(L) 14.0 - 18.0 g/dl [facility] Hematocrit 40.2(L) 42.0 - 52.0 % [facility] Mean Corpuscular Volume 89.5 80.0 - 98.0 fL [facility] Mean Corpuscular Hemoglobin 29.6 27.0 - 33.0 pg [facility] Mean Corpuscular HGB Conc 33.1 31.0 - 36.0 g/dl [facility] Red Cell Distribution Width 13.2 11.0 - 16.0 % [facility] Platelet Count 253 160 - 400 X10*3/uL [facility] Mean Platelet Volume 10.9 9.4 - 12.4 fL [facility] Neutrophils Percent Auto 59.1 45 - 73 % [facility] Imm Gran Pct Auto 0.4 0.0 - 0.4 % [facility] Lymphocytes Percent Auto 33.0 20 - 40 % [facility] Monocytes Percent Auto 5.8 2 - 11 % [facility] Eosinophils Percent Auto 1.4 0 - 4 % [facility] Basophils Percent Auto 0.3 0 - 2 % [facility] NRBC Pct Auto 0.0 0.0 - 0.2 /100WBC [facility] Neutrophils Absolute Auto 5.4 2.0 - 8.3 x10*3/uL [facility] Imm Gran Abs Auto 0.04(H) 0.00 - 0.03 X10*3/uL [facility] Lymphocytes Absolute Auto 3.0 1.2 - 4.9 X10*3/uL [facility] Monocytes Absolute Auto 0.5 0.1 - 1.2 X10*3/uL [facility] Eosinophils Absolute Auto 0.1 0.0 - 0.4 X10*3/uL [facility] Basophils Absolute Auto 0.0 0.0 - 0.2 X10*3/uL [facility] NRBC Abs Auto 0.000 0.0 - 0.012 X10*3/uL [facility] Blood Venous blood specimen / Unknown 10/19/2024 12:53 PM EDT 10/19/2024 4:29 PM EDT us Joan Santos MD LAB BLOOD ORDERABLES Final Result [facility] [address] [place] [phone] * (ABNORMAL) POCT HGB A1C (10/19/2024 11:13 AM EDT) Hemoglobin A1C 7.7(A) 4.0 - 6.0 % [employer] Media Lot # [id number] Lot# Expiration Date ,92 Blood 10/19/2024 11:1 3 AM EDT Joan Santos MD POINT OF CARE TEST EN TER/EDIT ORDERABLES Final Result * (ABNORMAL) POCT Glucose (10/19/2024 11:08 AM EDT) Glucose Blood, POC 256(A) 60 - 200 mg/dL [employer] Lot # [id number] Lot# Expiration Date 82,526 Blood Capillary blood specimen / Unknown 10/19/2024 11:08 AM EDT Result Larry Santos MD POINT OF CARE TEST EN TER/EDIT ORDERABLES Final Result documented in this encounter Visit Diagnoses Diagnosis Essential hypertension- Primary Unspecified essential hypertension Type 2 diabetes mellitus with diabetic neuropathy, without long-term current use of insulin (CMS/HCC) Anxiety with depression Both eyes affected by mild nonproliferative diabetic retinopathy with macular edema, associated with type 2 diabetes mellitus (CMS/HCC) Need for vaccination Need for prophylactic vaccination and inoculation against unspecified single disease documented in this encounter Additional Health Concerns Assessment Noted Time PHQ-9 Depression Total Score: 5 10/20/19 25 1:17 PM EDT documented as of this encounter Care Teams Medical Sonographer Relationship Specialty Start Date End Date Joan Little MD [address] [place] [address] PCP - General Family Medicine 05/10/22 documented as of this encounter
--- OUTSIDE RECORDS SUMMARY | 2024-10-29 13:26 | XMS_ITS | Encounter Summary ---
Author Organization [employer] Address [address] [place] [address] Care Team Providers Care Ball Warper Tender Name Role Phone Joan Little MD Primary Care Provide r Encounter Details Date Type Department Care Team (Latest Contact Info) Description 10/19/2024 Travel Social History Tobacco Use Types Packs/Day Years [...] documented as of this encounter Care Teams Ball Warper Tender Relationship Specialty Start Date End Date Joan Little MD [address] [place] [address] PCP - General Family Medicine 05/10/22 documented as of this encounter
--- OUTSIDE RECORDS SUMMARY | 2024-10-29 13:26 | XMS_ITS | Encounter Summary ---
Author Organization [employer] Address [address] [facility] [address] [place] [address] Care Team Providers Care General Manager Land Department Name Role Phone Joan Little MD Primary Care Provide r Encounter Details Date Type Department Care Team ([facility] st Contact Info) Description 10/08/2024 Orders Only [facility] MED & PEDS [address] [place], [place] [phone] Provider, MD Enmanuel Social History Tobacco Use Types Packs/Day Years [...] on file documented as of this encounter Procedures Procedure Name Priority Date/Time Associated Diagnosis Comments HM COLONOSCOPY Routine 07/16/2023 2:56 PM EST documented in this encounter Results * Hm Colonoscopy (07/16/2023 2:56 PM EST) us Historical Provider HEALTH MAINTENANCE Final Result documented in this encounter Visit Diagnoses Not on filedocumented in this encounter Additional Health Concerns Assessment Noted Time PHQ-9 Depression Total Score: 0 06/18/20 24 10:59 AM EST documented as of this encounter Care Teams General Manager Land Department Relationship Specialty Start Date End Date Joan Little MD [address] [place] [address] PCP - General Family Medicine 05/10/22 documented as of this encounter
--- OUTSIDE RECORDS SUMMARY | 2024-10-29 13:26 | XMS_ITS | Encounter Summary ---
Author Organization [employer] Address [address] [facility] [address] [place] [address] Care Team Providers Care Target Network Analyst Name Role Phone Joan Little MD Primary Care Provide r Reason for Visit * Reason Comments Care Coordination CHW outreach for SDO H food needs-referral completed Encounter Details Date Type Department Care Team (Latest Contact Info) Description 10/19/2024 Patient Outreach [facility] MEDICINE [address] [place] [phone] Joan Little MD [address] [place] [address] Care Coordination (CHW outreach for SDOH food needs-referral completed /) Social History Tobacco Use Types Packs/Day Years [...] as of this encounter Progress Notes * Xander England - 10/19/2024 2:35 PM EDT CHW Xander England placed outbound call to patient for assistance with SDOH as a referral was received by the provider. Patient's name and were confirmed. Patient screened positive for the following SDOH food insecurities. Patient is seeking for the adult care program. CHW advice patient to go the medical record of his last Exam and go to the day care. Patient verbalizes understanding, and a ble to agree with plan to follow up. Patient educated on extended clinic hours on Mondays through Wednesdays, and Walk-In Urgent Care Located in [facility] of [facility]. Patient provided with after-hours line for [facility], , which offer night time triage service and option to transfer to operations label clerk provider if needed. documented in this encounter Plan of Treatment Not on file documented as of this encounter Visit Diagnoses Not on filedocumented in this encounter Additional Health Concerns Assessment Noted Time PHQ-9 Depression Total Score: 5 10/20/19 25 1:17 PM EDT documented as of this encounter Care Teams Target Network Analyst Relationship Specialty Start Date End Date Joan Little MD [address] [place] [address] PCP - General Family Medicine 05/10/22 documented as of this encounter
--- OUTSIDE RECORDS SUMMARY | 2024-10-29 13:26 | XMS_ITS | Encounter Summary ---
Author Organization [employer] Address [address] [facility] [address] [place] [address] Care Team Providers Care Caster Investment Casting Name Role Phone Joan Little MD Primary Care Provide r Encounter Details Date Type Department Care Team ([facility] st Contact Info) Description 10/03/2022 Orders Only [facility] MEDICINE [address] [place], [place] [phone] Felecia Victor MD [address] [place], [place] [phone] Gastroesophageal reflux disease without esophagitis (Primary Dx) Social History Tobacco Use Types Packs/Day Years Used Date Smoking Tobacco: Never Passive Smoke Exposure: Never Smokeless Tobacco: Never Alcohol Use Standard Drinks/Week Comments Never 0 (1 standard drink = 0.6 oz pur e alcohol) Sex and Gender Information Value Date Recorded Sex Assigned at Male 06/04/2022 10:14 AM EDT Legal Sex Male 10:14 AM EDT Gender Identity Male 06/04/2022 10:14 AM EDT Sexual Orientation Straight 06/04/2022 10 :14 AM EDT COVID-19 Exposure Response Date Recorded In the last 10 days, have yo u been in contact with someone who was confirmed or suspected to have Coronavirus/COVID-19? No / Unsure 09/04/2022 9:41 AM EST documented as of this encounter Plan of Treatment Not on file documented as of this encounter Procedures Procedure Name Priority Date/Time Associated Diagnosis Comments GLUCOSE, WHOLE BLOOD Routine 03/08/2023 3:40 PM EDT Gastroesophageal reflux disease without esophagitis OBSX1 Routine 03/08/2023 2:17 PM EDT Gastroesophageal reflux disease without esophagitis CBC WITH AUTO DIFFERENTIAL Routine 03/08/2023 11:10 AM EDT Gastroesophageal reflux disease without esophagitis COMPREHENSIVE METABOLIC PANEL Routine 03/08/2023 11:10 AM EDT Gastroesophageal reflux disease without esophagitis HIGH SENSITIVITY TROPONIN I Routine 02/17/2023 11:28 AM EDT Gastroesophageal reflux disease without esophagitis CBC WITH AUTO DIFFERENTIAL Routine 02/17/2023 11:28 AM EDT Gastroesophageal reflux disease without esophagitis BASIC METABOLIC PANEL Routine 02/17/2023 11:28 AM EDT Gastroesophageal reflux disease without esophagitis T-SPOT(R).TB Routine 02/11/2023 11:26 AM EDT Gastroesophageal reflux disease without esophagitis MEASLES AB (IGG), IMMUNE STATUS Routine 02/11/2023 11:26 AM EDT Gastroesophageal reflux disease without esophagitis RUBELLA AB (IGG), IMMUNE STATUS Routine 02/11/2023 11:26 AM EDT Gastroesophageal reflux disease without esophagitis MUMPS ANTIBODY IGG Routine 02/11/2023 11 :26 AM EDT Gastroesophageal reflux disease without esophagitis documented in this encounter Results * Glucose, Whole Blood (03/08/2023 3:40 PM EDT) Glucose, Whole Blood 112 60 - 115 mg/dL [facility] Comment:METER #: [id number] 03/08/2023 3:40 PM EDT 03/08/2023 3:44 PM EDT us [facility] External Provider LAB BLO OD ORDERABLES Final Result [facility] [address] [place] [address] [phone] * OBSX1 (03/08/2023 2:17 PM EDT) OBS1 POSITIVE NEGATIVE [facility] 03/08/2023 2:17 PM EDT 03/08/2023 2:28 PM EDT us [facility] External Provider LAB BLO OD ORDERABLES Final Result [facility] [address] [place] [address] [phone] * (ABNORMAL) Comprehensive Metabolic Panel (03/08/2023 11:10 AM EDT) [facility] Sodium 138 135 - 145 mmol/L [facility] Potassium 5.0 3.3 - 5.1 mmol/L [facility] Chloride 105 96 - 108 mmol/L [facility] Carbon Dioxide 20(L) 22 - 29 mmol/L [facility] Anion Gap 18 12 - 20 [facility] Urea Nitrogen (BUN) 20(H) 9 - 16 mg/dL [facility] Creatinine, Serum 1.27 0.5 - 1.4 mg/dL [facility] Creatinine Clr Calc Pharmacy 52.5 [facility] Comment:eGFR (calculated fro m the MDRD study equation) and eCrCl(calculated from the Cockcroft-Gault equation) are based ondifferent parameters and may not yield comparable results.If eCrCl result is absurd, please check patient'sheight/weight. Estimated Glomerular Filt Rate 57 [facility] Comment:NOTE: For -Am erican individuals, multiply the result by 1.210.Chronic Kidney Disease: Estimated GFR < 60 mL/min/1.16f6Hcufvj Kidney Disease: Estimated GFR < 15 mL/min/1.73m2 Glucose 278(H) 60 - 115 mg/dL [facility] Calcium 10.1 8.4 - 10.2 mg/dL [facility] Bilirubin, Total 0.2 0.0 - 1.0 mg/dL [facility] Aspartate Amino Transferase 18 5 - 37 U/L [facility] Alanine Aminotransferase 14 0 - 40 U/L [facility] Total Protein 7.9 6.5 - 8.0 g/dL [facility] Albumin Level 4.2 3.5 - 5.0 g/dL [facility] Alkaline Phosphatase 38(L) 39 - 117 U/L [facility] 03/08/2023 11:1 0 AM EDT 03/08/2023 11:13 AM EDT us [facility] External Provider LAB BLO OD ORDERABLES Final Result [facility] [address] [place] [address] [phone] * (ABNORMAL) CBC auto differential (03/08/2023 11:10 AM EDT) White Blood Count 9.2 4.8 - 10.8 X10*3/uL [facility] Red Blood Count 4.12(L) 4.60 - 5.80 X10*6/uL [facility] Hemoglobin 12.1(L) 14.0 - 18.0 g/dl [facility] Hematocrit 36.0(L) 42.0 - 52.0 % [facility] Mean Corpuscular Volume 87.4 80.0 - 98.0 fL [facility] Mean Corpuscular Hemoglobin 29.4 27.0 - 33.0 pg [facility] Mean Corpuscular HGB Conc 33.6 31.0 - 36.0 g/dl [facility] Red Cell Distribution Width 13.2 11.0 - 16.0 % [facility] Platelet Count 280 160 - 400 X10*3/uL [facility] Mean Platelet Volume 9.8 9.4 - 12.4 fL [facility] Neutrophils Percent Auto 58.7 45 - 73 % [facility] Imm Gran Pct Auto 0.3 0.0 - 0.4 % [facility] Lymphocytes Percent Auto 31.6 20 - 40 % [facility] Monocytes Percent Auto 6.9 2 - 11 % [facility] Eosinophils Percent Auto 2.1 0 - 4 % [facility] Basophils Percent Auto 0.4 0 - 2 % [facility] NRBC Pct Auto 0.0 0.0 - 0.2 /100WBC [facility] Neutrophils Absolute Auto 5.4 2.0 - 8.3 x10*3/uL [facility] Imm Gran Abs Auto 0.03 0.00 - 0.03 X10*3/uL [facility] Lymphocytes Absolute Auto 2.9 1.2 - 4.9 X10*3/uL [facility] Monocytes Absolute Auto 0.6 0.1 - 1.2 X10*3/uL [facility] Eosinophils Absolute Auto 0.2 0.0 - 0.4 X10*3/uL [facility] Basophils Absolute Auto 0.0 0.0 - 0.2 X10*3/uL [facility] NRBC Abs Auto 0.000 0.0 - 0.012 X10*3/uL [facility] 03/08/2023 11:1 0 AM EDT 03/08/2023 11:13 AM EDT [facility] External Provider LAB BLO OD ORDERABLES Final Result [facility] [address] [place] [phone] * High Sensitivity Troponin I (02/17/2023 11:28 AM EDT) TROPONIN I HIGH SENSITIVITY <2.7 <3.5 - 35.0 ng/L [facility] Comment:The Macias high sens itivity Troponin-I results should beused in conjunction with other diagnostic information suchas ECG, clinical observations and information, and patientsymptoms to aid in the diagnosis of NH. 02/17/2023 11:2 8 AM EDT 02/17/2023 11:33 AM EDT [facility] External Provider LAB BLO OD ORDERABLES Final Result Performing Organization Address [facility] Co de Phone Number [facility] [address] [place] [phone] * (ABNORMAL) Basic Metabolic Panel (02/17/2023 11:28 AM EDT) Sodium 137 135 - 145 mmol/L [facility] Potassium 5.1 3.3 - 5.1 mmol/L [facility] Chloride 102 96 - 108 mmol/L [facility] Carbon Dioxide 23 22 - 29 mmol/L [facility] Anion Gap 17 12 - 20 [facility] Urea Nitrogen (BUN) 12 9 - 16 mg/dL [facility] Creatinine, Serum 1.08 0.5 - 1.4 mg/dL [facility] Creatinine Clr Calc Pharmacy 62.3 [facility] Comment:eGFR (calculated fro m the MDRD study equation) and eCrCl(calculated from the Cockcroft-Gault equation) are based ondifferent parameters and may not yield comparable results.If eCrCl result is absurd, please check patient'sheight/weight. Estimated Glomerular Filt Rate >60 [facility] Comment:NOTE: For -Am erican individuals, multiply the result by 1.210.Chronic Kidney Disease: Estimated GFR < 60 mL/min/1.10w5Yuzkqw Kidney Disease: Estimated GFR < 15 mL/min/1.73m2 Glucose 247(H) 60 - 115 mg/dL [facility] Calcium 10.5(H) 8.4 - 10.2 mg/dL [facility] 02/17/2023 11:2 8 AM EDT 02/17/2023 11:33 AM EDT [facility] External Provider LAB BLO OD ORDERABLES Final Result Performing Organization Address City/[facility]/ZIP Co de Phone Number [facility] [address] [place] [address] [phone] * (ABNORMAL) CBC auto differential (02/17/2023 11:28 AM EDT) White Blood Count 8.1 4.8 - 10.8 X10*3/uL [facility] Red Blood Count 4.64 4.60 - 5.80 X10*6/uL [facility] Hemoglobin 13.5(L) 14.0 - 18.0 g/dl [facility] Hematocrit 40.8(L) 42.0 - 52.0 % [facility] Mean Corpuscular Volume 87.9 80.0 - 98.0 fL [facility] Mean Corpuscular Hemoglobin 29.1 27.0 - 33.0 pg [facility] Mean Corpuscular HGB Conc 33.1 31.0 - 36.0 g/dl [facility] Red Cell Distribution Width 12.9 11.0 - 16.0 % [facility] Platelet Count 243 160 - 400 X10*3/uL [facility] Mean Platelet Volume 9.9 9.4 - 12.4 fL [facility] Neutrophils Percent Auto 54.9 45 - 73 % [facility] Imm Gran Pct Auto 0.6(H) 0.0 - 0.4 % [facility] Lymphocytes Percent Auto 34.6 20 - 40 % [facility] Monocytes Percent Auto 7.5 2 - 11 % [facility] Eosinophils Percent Auto 2.0 0 - 4 % [facility] Basophils Percent Auto 0.4 0 - 2 % [facility] NRBC Pct Auto 0.0 0.0 - 0.2 /100WBC [facility] Neutrophils Absolute Auto 4.5 2.0 - 8.3 x10*3/uL [facility] Imm Gran Abs Auto 0.05(H) 0.00 - 0.03 X10*3/uL [facility] Lymphocytes Absolute Auto 2.8 1.2 - 4.9 X10*3/uL [facility] Monocytes Absolute Auto 0.6 0.1 - 1.2 X10*3/uL [facility] Eosinophils Absolute Auto 0.2 0.0 - 0.4 X10*3/uL [facility] Basophils Absolute Auto 0.0 0.0 - 0.2 X10*3/uL [facility] NRBC Abs Auto 0.000 0.0 - 0.012 X10*3/uL [facility] 02/17/2023 11:2 8 AM EDT 02/17/2023 11:33 AM EDT us [facility] External Provider LAB BLO OD ORDERABLES Final Result [facility] [address] [place] [address] [phone] * T-SPOT??.TB (02/11/2023 11:26 AM EDT) Pathologist [facility] T Spot TB Negative Negative [facility] Comment:A negative test resu lt does not exclude the possibilityof exposure to or infection with Mycobacteriumtuberculosis (M. tuberculosis). Patients with recentexposure to TB infected individuals exhibiting anegative T-SPOT.TB result should be considered forretesting within 6 weeks or if other relevant clinicalsymptoms indicate. Results from T-SPOT.TB testing mustbe used in conjunction with each individual'sepidemiological history, current medical status,and results of other diagnostic evaluations.The T-SPOT.TB test is qualitative and results arereported as positive, borderline, or negative, giventhat the test controls perform as expected. In linewith the Centers for Disease Control and Prevention's2010 recommendation to report quantitative measurementsalongside the qualitative result, the laboratoryprovides spot counts for informational purposes only.The T-SPOT.TB test should not be interpreted as aquantitative test. TS PANEL A 0 [facility] TS PANEL B 0 [facility] Negative Control Passed [facility] Positive Control Passed [facility] Comment:For additional infor matwilver, please refer tohttp://education.[employer]/faq/MPK643(This link is being provided for informational/educational purposes only.)THIS TEST WAS PERFORMED AT:[facility]/[id number] [place] [address]OZRUVNJMAGDALENA WHITAKER MD,PHD 02/11/2023 11:2 6 AM EDT 02/11/2023 1:16 PM EDT [facility] External Provider LAB BLO OD ORDERABLES Final Result Performing Organization Address City/[facility]/ZIP Co de Phone Number [facility] [address] [place] [address] [phone] * Measles Antibody (IgG), Immune Status (02/11/2023 11:26 AM EDT) Rubeola IgG (Measles) >300.00 AU/mL [facility] Comment:AU/mL Interpretation ----- <13.50 Not consistent with lgbsevrq99.50-16.49 Equivocal>16.49 Consistent with immunityThe presence of measles IgG suggests immunization orpast or current infection with measles virus.For additional information, please refer tohttp://[employer]/faq/HZG325(This link is being provided for informational/educational purposes only.)THIS TEST WAS PERFORMED AT:[facility] [place] [id number] SOTO MD 02/11/2023 11:2 6 AM EDT 02/11/2023 1:16 PM EDT [facility] External Provider LAB BLO OD ORDERABLES Final Result Performing Organization Address [facility] Co de Phone Number [facility] [address] [place] [address] [phone] * Rubella Antibody (IgG), Immune Status (02/11/2023 11:26 AM EDT) Rubella IgG Antibody 31.70 Index [facility] Comment:Index Interpretation ----- <0.90 Not consistent with immunity 0.90-0.99 Equivocal > or = 1.00 Consistent with immunityThe presence of rubella IgG antibody suggestsimmunization or past or current infection withrubella virus.THIS TEST WAS PERFORMED AT:[employer] [address] [id number] SOTO MD 02/11/2023 11:2 6 AM EDT 02/11/2023 1:16 PM EDT [facility] External Provider LAB BLO OD ORDERABLES Final Result Performing Organization Address [facility] de Phone Number [facility] [address] [place] [address] [phone] * Mumps Virus Antibody (IgG), Immune Status (02/11/2023 11:26 AM EDT) Mumps Virus IgG Antibody 27.40 AU/mL [facility] Comment:AU/mL Interpretation ------- <9.00 Not consistent with immunity9.00-10.99 Equivocal>10.99 Consistent with immunityThe presence of mumps IgG antibody suggests immunizationor past or current infection with mumps virus.THIS TEST WAS PERFORMED AT:[facility] [address] [id number] SOTO MD 02/11/2023 11:2 6 AM EDT 02/11/2023 1:16 PM EDT [facility] External Provider LAB BLO OD ORDERABLES Final Result Performing Organization Address [facility] de Phone Number [facility] [address] [place], [place] [phone] documented in this encounter Visit Diagnoses Diagnosis Gastroesophageal reflux disease without esophagitis- Primary Esophageal reflux documented in this encounter Care Teams Caster Investment Casting Relationship Specialty Start Date End Date Joan Little MD [address] [place] [address] PCP - General Family Medicine 05/10/22 documented as of this encounter
--- OUTSIDE RECORDS SUMMARY | 2024-10-29 13:26 | XMS_ITS | Clinical Summary ---
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 Blood Glucose Monitoring Suppl ([employer] [place] Lite) w/Device kit 1 each by Subcutaneous Infusion route in the morning. 04/04/20 22 Active acetaminophen (Tylenol) 500 MG tabletIndications :Chronic left shoulder pain Take 2 tablets by oral every 8 hrs as needed not to exceed 8 tablets per 24hrs 60 tablet 1 08/31/19 23 Active Blood Glucose Monitoring Suppl (Blood Glucose Monitor System) w/Device kitIndications:Ty pe 2 diabetes mellitus with diabetic neuropathy, without long-term current use of insulin ([facility]) Use to monitor glucose 1 kit 01/09/20 23 Active TRUEplus Lancets 33G miscIndications:T ype 2 diabetes mellitus without complications ([facility]) TEST BLOOD SUGAR TWICE DAILY DIRECTED 100 each 11 02/13/20 23 Active polyethylene glycol, PEG, 3350 (MiraLax) 17 GM/SCOOP powderIndications :Constipation, unspecified constipation type Take 17 g by mouth in the morning. 527 g 03/11/20 23 Active hydrocortisone (Anusol-HC) 2.5 % rectal creamIndications: Hemorrhoids, unspecified hemorrhoid type Insert into the rectum 2 times daily. 30 g 03/11/20 23 Active docusate sodium (Colace) 100 MG capsuleIndication s:Constipation, unspecified constipation type Take 1 capsule (100 mg) by mouth in the morning. 30 capsule 1 03/11/20 23 Active insulin glargine (Lantus SoloStar) 100 UNIT/ML penIndications:Ty pe 2 diabetes mellitus with diabetic neuropathy, without long-term current use of insulin ([facility]) Inject 30 Units under the skin at bedtime. 3 mL 12 04/15/20 23 Active gabapentin (Neurontin) 100 MG capsule TAKE 1 CAPSULE BY MOUTH EVERY NIGHT 90 capsule 2 05/06/20 23 Active gabapentin (Neurontin) 400 MG capsuleIndication s:Type 2 diabetes mellitus with diabetic neuropathy, without long-term current use of insulin ([facility]) TAKE 1 CAPSULE BY MOUTH THREE TIMES DAILY 90 capsule 1 05/08/20 23 Active amoxicillin-clavu lanate (Augmentin) 875-125 MG tablet Take 1 tablet by mouth 2 times daily. 14 tablet 06/19/20 23 Active senna (Senokot) 8.6 MG tablet TAKE 2 TABLETS BY MOUTH DAILY AT BEDTIME FOR CONSTIPATION 05/10/20 23 Active Continuous Blood Gluc Sheep Rancher (FreeStyle Caitlin 2 [place]) deviceIndications :Type 2 diabetes mellitus with diabetic neuropathy, without long-term current use of insulin ([facility]) Scan sensor every 8 hours 60 each 10/21/19 24 Active FREESTYLE LITE test stripIndications: Type 2 diabetes mellitus with diabetic neuropathy, without long-term current use of insulin ([facility]) TEST BLOOD SUGAR TWICE DAILY DIRECTED 100 strip 3 12/02/19 24 Active Pentips 32G X 4 MM misc USE DIRECTED 100 each 2 12/04/19 24 Active lisinopril 40 MG tablet TAKE 1 TABLET BY MOUTH EVERY DAY 90 tablet 2 04/30/20 24 Active Aspirin Low Dose 81 MG EC tablet TAKE 1 TABLET BY MOUTH EVERY DAY 90 tablet 2 04/30/20 24 Active gabapentin (Neurontin) 300 MG capsuleIndication s:Chronic bilateral low back pain, unspecified whether sciatica present Take 1 capsule (300 mg) by mouth 2 times daily. 180 capsule 2 05/20/20 24 Active Continuous Glucose Sensor (FreeStyle Caitlin 2 Sensor) miscIndications:T ype 2 diabetes mellitus with diabetic neuropathy, without long-term current use of insulin ([facility]) USE TO CHECK BLOOD SUGAR AND CHANGE EVERY 14 DAYS 2 each 3 06/16/20 24 Active empagliflozin (Jardiance) 10 MGIndications:Typ e 2 diabetes mellitus with diabetic neuropathy, without long-term current use of insulin ([facility]) Take 1 tablet (10 mg) by mouth Once per day. 90 tablet 1 06/18/20 24 025 Active Dulaglutide (Trulicity) 1.5 MG/0.5ML solution auto-injectorIndi cations:Type 2 diabetes mellitus with diabetic neuropathy, without long-term current use of insulin ([facility]) Inject 0.5 mL (1.5 mg) under the skin 1 (one) time per week. 9 mL 1 06/18/20 24 Active famotidine (Pepcid) 20 MG tabletIndications :Gastroesophageal reflux disease without esophagitis Take 1 tablet (20 mg) by mouth 2 times daily. 180 tablet 06/18/20 24 Active amLODIPine (Norvasc) 10 MG tabletIndications :Essential hypertension Take 1 tablet (10 mg) by mouth in the morning. 30 tablet 2 06/18/20 24 Active cetirizine (ZyrTEC) 10 MG tabletIndications :Allergic cough Take 1 tablet (10 mg) by mouth Once per day. 30 tablet 2 06/18/20 24 Active FLUoxetine (PROzac) 20 MG capsuleIndication s:Depressive disorder Take 1 capsule (20 mg) by mouth Once per day. TAKE 1 CAPSULE BY MOUTH EVERY DAY IN THE MORNING 30 capsule 2 06/18/20 24 Active metFORMIN (Glucophage) 1000 MG tablet TAKE 1 TABLET BY MOUTH TWICE DAILY WITH BREAKFAST AND WITH DINNER 180 tablet 2 09/10/19 25 Active rosuvastatin (Crestor) 40 MG tablet TAKE 1 TABLET BY MOUTH EVERY DAY 90 tablet 2 09/10/19 25 Active clopidogrel (Plavix) 75 MG tablet TAKE 1 TABLET BY MOUTH EVERY DAY 90 tablet 2 09/10/19 25 Active metoprolol succinate XL (Toprol-XL) 50 MG 24 hr tablet TAKE 1 TABLET BY MOUTH EVERY DAY 90 tablet 2 09/10/19 25 Active Viagra 100 MG tablet TAKE 1 TABLET 1 HOUR BEFORE SEXUAL RELATIONS ONCE DAILY NEEDED. 15 tablet 3 09/25/19 25 Active fenofibrate (Tricor) 48 MG tabletIndications :Hypertriglycerid emia Take 1 tablet (48 mg) by mouth Once per day. 30 tablet 11 10/22/19 25 026 Active omeprazole (PriLOSEC) [address] capsuleIndication s:Gastroesophagea l reflux disease without esophagitis Take 1 capsule (20 mg) by mouth before breakfast and before evening meal. 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, associated with type 2 diabetes mellitus 10/19/2024 Decreased hearing of both ears 03/17/2024 Encounter for preventative adult health care exa mination 03/17/2024 Assessment & Plan (03/17/2024 1:14 PM EDT): See HPI Left hand pain 12/02/2023 Allergic cough 12/02/2023 Periodontal disease 08/12/2023 Herniation of intervertebral disc of lumbar jacinto on 07/17/2023 Assessment & Plan (07/17/2023 12:37 PM EST): Back brace will be prescribe Retrolisthesis of vertebrae 07/09/2023 Osteoarthritis of lumbar spine 07/09/2023 Stage 2 chronic kidney disease 05/10/2023 Excessive cerumen in both ear canals 05/10/2023 Gastroesophageal reflux disease without esophagi tis 04/15/2023 Assessment & Plan (06/18/2024 12:05 PM EST): I advise patient to avoid NSAIDs, spicy and acid food, I advise to eat at the same time every day, I advise to elevate the head of the bed and take medications as prescribe Assessment & Plan (04/15/2023 12:56 PM EDT): Patient stopped taking pantoprazole, he will like a different medication for his GERD Osteoarthritis of spine with radiculopathy, lumbosacral region 03/08/2023 Assessment & Plan (03/08/2023 11:54 AM EDT): I will prescribe a back brace for patient It is my medical opinion that back brace will be beneficial for patient as the support provided by the brace will in fact alleviate some of his pain Herpes zoster with complication 02/26/2023 Bleeding per rectum 02/26/2023 Assessment & Plan (04/15/2023 12:55 PM EDT): Continue to follow with specialist CBC will be monitor Assessment & Plan (03/01/2023 9:53 AM EDT): Patient already referred to GI Atypical chest pain 02/26/2023 Encounter for preventive health examination 02/02 Assessment & Plan (02/11/2023 10:24 AM EDT): Discussed with patient re increase fresh fruit and vegetable intake. Counseled re moderate exercise as tolerated, up to 20min/d Patient feels safe at home. Eye exam refer to optometry CRC screen refer tp GI Lipids/FBS up to date, FU with PCP in May 2023 Vaccinations PCV20 + Tdap today, counseled to get Covid bivalent booster and shingrix at the closest pharmacy today Dental visit up to date, next 1 due March 2023, information for dentist in the area given to patient today Encounter for colorectal cancer screening 2022 Chronic hand pain, left 01/08/2023 Type 2 diabetes mellitus wit h diabetic neuropathy, without long-term current use of insulin 07/18/2022 Assessment & Plan (10/19/2024 2:11 PM EDT): Diabetes is: almost at goal - Lab Results Component Value Date HGBA1C 7.7 (A) 10/19/2024 HGBA1C 9.4 (A) 06/18/2024 HGBA1C 7.7 (A) 03/17/2024 - Lab Results Component Value Date MICROALBUR 296.0 05/10/2023 CREATININE 1.06 12/02/2023 -Changes: None - Diabetic eye exam: Up-to-date - Diabetic foot exam: - Continue lifestyle modific pending ations - Continue current medications - Follow up: 3 months Assessment & Plan (06/18/2024 12:04 PM EST): Diabetes is: not controlled - Lab Results Component Value Date HGBA1C 9.4 (A) 06/18/2024 HGBA1C 7.7 (A) 03/17/2024 HGBA1C 7.3 (A) 11/25/2023 - Lab Results Component Value Date MICROALBUR 296.0 05/10/2023 CREATININE 1.06 12/02/2023 -Changes: I renewed his jardiance prescription and I went up on trulicity - Diabetic eye exam:up to date - Diabetic foot exam:up to date - Continue lifestyle modifications - Continue current medications - Follow up: 3 months Assessment & Plan (03/17/2024 1:13 PM EDT): Diabetes is: almost at goal - Lab Results Component Value Date HGBA1C 7.7 (A) 03/17/2024 HGBA1C 7.3 (A) 11/25/2023 HGBA1C 8.0 (A) 07/17/2023 - Lab Results Component Value Date MICROALBUR 296.0 05/10/2023 CREATININE 1.06 12/02/2023 -Changes: none - Diabetic eye exam:up to date - Diabetic foot exam:pending - Continue lifestyle modifications - Continue current medications - Follow up: 3 months Assessment & Plan (12/02/2023 10:30 AM EDT): Diabetes is: almost at goal - Lab Results Component Value Date HGBA1C 7.3 (A) 11/25/2023 HGBA1C 8.0 (A) 07/17/2023 HGBA1C 8.0 (A) 04/15/2023 - Lab Results Component Value Date MICROALBUR 296.0 05/10/2023 CREATININE 1.09 05/10/2023 -Changes: none - Diabetic eye exam:up to date - Diabetic foot exam:pending - Continue lifestyle modifications - Continue current medications - Follow up: 3 months Assessment & Plan (07/17/2023 12:37 PM EST): A1c 8 not at goal patient already on several medications including insulin, it is my medical opinion he will benefit from continuous glucose monitor I will start him today on trulicity Assessment & Plan (05/10/2023 1:04 PM EDT): Lab Results Component Value Date HGBA1C 8.0 (A) 04/15/2023 HGBA1C 8.4 (A) 01/08/2023 HGBA1C 8.1 (H) 05/10/2022 - Lab Results Component Value Date CREATININE 1.27 03/08/2023 - Continue current medications Assessment & Plan (04/15/2023 12:54 PM EDT): Improving - Lab Results Component Value Date HGBA1C 8.0 (A) 04/15/2023 HGBA1C 8.4 (A) 01/08/2023 HGBA1C 8.1 (H) 05/10/2022 - Lab Results Component Value Date CREATININE 1.27 03/08/2023 Patient reports he was not taking jardiance today I refilled it again, he has being using lantus 30 U at bed time C/w metformin 1000mg BID Assessment & Plan (03/01/2023 9:45 AM EDT): Lab Results Component Value Date HGBA1C 8.4 (A) 01/08/2023 HGBA1C 8.1 (H) 05/10/2022 - Lab Results Component Value Date CREATININE 1.08 02/17/2023 - - Continue lifestyle modifications - Continue current medications -continues glucose monitor prescribed, patient with high doses of insulin and uncontrolled diabetes Assessment & Plan (02/11/2023 9:52 AM EDT): Uncontrolled, no change in medications. Pt to FU with PCP Assessment & Plan (01/08/2023 11:08 AM EDT): A1c not at goal - Lab Results Component Value Date HGBA1C 8.4 (A) 01/08/2023 HGBA1C 8.1 (H) 05/10/2022 - Lab Results Component Value Date CREATININE 1.05 04/04/2022 - Continue lifestyle modifications -c/w metformin and lantus I added today jardiance 10mg daily Assessment & Plan (07/19/2022 2:00 PM EST): Glucose 75 today, random F/u with PCP or team for ongoing mgmt Chronic left shoulder pain 07/17/2022 Erectile dysfunction 07/17/2022 Hand pain 07/17/2022 Lumbar back pain 07/17/2022 Assessment & Plan (02/11/2023 10:56 AM EDT): I will prescribe a new back brace to use for ADLS Assessment & Plan (01/08/2023 10:58 AM EDT): I will prescribed a back brace/support continue with pain medications PRN Assessment & Plan (07/19/2022 2:00 PM EST): Long-standing LBP without red flag symptoms Trial of muscle relaxer, Flexeril 5mg nightly Xrays osteophytes and degenerative changes at L3-L5 Refer to Pt Refer to pain mgmt for repeat BERENICE Primary osteoarthritis of both hips 07/17/2022 Anxiety state 12/20/2011 Depressive disorder 12/20/2011 Assessment & Plan (07/17/2023 12:37 PM EST): RTC 4 weeks Fluoxetine was started Assessment & Plan (02/11/2023 10:56 AM EDT): currently seen by psychotherapist feels safe at home and is able to contract for safety FU with PCP Essential hypertension 12/20/2011 Assessment & Plan (10/19/2024 2:12 PM EDT): I advised: - Aerobic exercise to reduce [...] prescriptions without first consulting health care provider Assessment & Plan (06/18/2024 12:04 PM EST): Maintenance: BMP: up or date Lipid Panel: up to date ASCVD Risk: 32.5% - Aerobic exercise to reduce BP. Initial [...] prescriptions without first consulting health care provider Assessment & Plan (12/02/2023 10:31 AM EDT): Today a little elevated I advise low Na diet and weight reduction and to take his medications every day, labs ordered today Egfr to be check for possible nephrology referral Assessment & Plan (07/17/2023 12:35 PM EST): Counseling done patient I advise not to miss his medications Assessment & Plan (05/10/2023 11:28 AM EDT): - Aerobic exercise to reduce BP. Initial [...] prescriptions without first consulting health care provider Assessment & Plan (04/15/2023 12:55 PM EDT): - Aerobic exercise to reduce BP. Initial [...] prescriptions without first consulting health care provider Assessment & Plan (03/01/2023 9:43 AM EDT): Patient did not took his medication today, I advise to take it as soon as he gets home, I advise to monitor his BP and if its still elevated to report back to me I advise low Na diet Assessment & Plan (02/11/2023 10:56 AM EDT): Uncontrolled today, pt hasn't taken medications encouraged compliance with medications to take them at the same time daily Counseled re low salt diet/increase moderate physical activity. Check home BP BIW and prn CP/CARBAJAL/DELGADO Non smoking patient. FU with PCP Assessment & Plan (01/08/2023 11:09 AM EDT): - Aerobic exercise to reduce BP. Initial [...] prescriptions without first consulting health care provider RTC 2 weeks with nurse for BP check if BP not at goal I will increase his amlodipine to 10mg daily Hemorrhage of rectum and anus 12/20/2011 Pure hypercholesterolemia 12/20/2011 Resolved Problems Problem Noted Date Diagnosed Date Resolved Date Alcohol dependence 12/20/2011 5 Encounters * This document contains information received from the source organization and may not represent a complete record from that organization. Date Type Department Care Team Description 10/21/2024 Telephone [facility] [address] [place] [address] Joan Little MD Plan of Care 10/21/2024 Orders Only [facility] [address] [place] [address] Joan Little MD Hypertriglyceridemia (Primary Dx) 10/19/2024 11:15 AM EDT Office Visit [address] [phone] Joan Little MD Essential hypertension (Primary Dx); Type 2 diabetes mellitus with diabetic neuropathy, without long-term current use of insulin ([facility]); Anxiety with depression; Both eyes affected by mild nonproliferative diabetic retinopathy with macular edema, associated with type 2 diabetes mellitus ([facility]); Need for vaccination 10/19/2024 Patient Outreach [address] [phone] Joan Little MD Care Coordination ([facility] outreach for SDOH food needs-referral completed /) 10/19/2024 Travel 10/09/2024 Patient Outreach [address] [phone] Joan Little MD Pre-visit Planning (SDOH screening negative and tobacco screening negative) 10/08/2024 Orders Only [facility] [address] [place] [address] ProviderEnmanuel MD 09/29/[address] [phone] Joan Little MD Med B form 09/25/[address] [phone] Joan Little MD 09/09/[address] [phone] Joan Little MD from Last 3 Months Immunizations Name Administration Dates Next Due Influenza High-dose Quadriva lent Preservative Free 05/06/2022 Influenza, seasonal, injecta ble, preservative free 10/19/2024 Pfizer Covid-19 Vaccine 12+ parul-sucrose (Sellers Cap) 12/13/2021,07/31/2021,07/07/2021 Pneumococcal Conjugate PCV 20 02/11/2023 Tdap 02/11/2023 Family History Medical History Relation Name Comments Breast cancer Sister Relation Name Status Comments Sister Social History Tobacco Use Types Packs/Day Years [...] Orientation Straight 06/04/2022 10 :14 AM EDT Last Filed Vital Signs Vital Sign Reading Time Taken Comments Blood Pressure 120/76 10/19/2024 11:06 AM EDT Pulse 83 10/19/2024 11:06 AM EDT Temperature 36.2 ??C (97.2 ??F) 10/19/2024 11:06 AM E DT Respiratory Rate 20 10/19/2024 11:06 AM EDT Oxygen Saturation 99% 06/18/2024 10:58 AM EST Inhaled Oxygen Concentration - - Weight 73 kg (161 lb) 10/19/2024 11:06 AM EDT Height 162.6 cm (5' 4 ) 10/19/2024 11:06 AM EDT Body Mass Index 27.64 10/19/2024 11:06 AM EDT Plan of Treatment Health Maintenance Due Date Last Done Comments CT Colonography 1955 Dental Oral Exam 1955 Dental Prophylaxis 1955 Dental X-Ray: Bitewings 1955 Dental X-Ray: Full Mouth 1955 FIT DNA/Cologuard 1955 FIT 1955 FOBT 1955 Sigmoidoscopy 1955 Alcohol/Substance Use Screening 1967 Zoster Vaccines (1 of 2) 2005 RSV Patients and Patients Aged 60 years or older (1 - Risk 60-74 years 1-dose series) 2015 Diabetes: Foot Exam 02/12/2024 02/11/2023, 02/11/2023, 02/11/2023, Additional history exists COVID-19 Vaccine ( season) 2024 12/13/2021, 07/31/2021, 07/07/2021 Diabetes: Urine Protein Screening 05/10/2024 05/10/2023 Eye Exam 06/13/2024 06/13/2023, 1104/2023, 06/13/2023, Additional history exists Diabetes: Hemoglobin A1C 01/19/2025 025, 06/18/2024, 03/17/2024, Additional history exists Colonoscopy 07/16/2025 07/16/2023 Colorectal Cancer Screening 07/16/2025 SDOH Screening 10/09/2025 10/09/2024 Depression Screening 10/19/2025 10/19/2024, 10/20/19 25 Lipid Panel 10/19/2025 10/19/2024, 04/2 04/2024, 05/10/2022 Tobacco Screening 10/19/2025 10/19/2024 DTaP/Tdap/Td Vaccines (2 - Td or Tdap) 02/11/2033 02/11/2023 Hepatitis C Screening Completed 05/10/2022 Pneumococcal Vaccine: 50+ Years Completed 02/11/2023 Influenza Vaccine Completed 10/19/2024, 05/06/2022 HIB Vaccines Aged Out No longer eligi ble based on patient's age to complete this topic HPV Vaccines Aged Out No longer eligi ble based on patient's age to complete this topic Hepatitis A Vaccines Aged Out No long er eligible based on patient's age to complete this topic Hepatitis B Vaccines Aged Out No long er eligible based on patient's age to complete this topic IPV Vaccines Aged Out No longer eligi ble based on patient's age to complete this topic Meningococcal Vaccine Aged Out No huber rut eligible based on patient's age to complete this topic RSV under 20 months Aged Out No longe r eligible based on patient's age to complete this topic Rotavirus Vaccines Aged Out No longer eligible based on patient's age to complete this topic Procedures Procedure Name Priority Date/Time Associated Diagnosis Comments LIPID PANEL, STANDARD Routine 10/19/2024 12:53 PM EDT Type 2 diabetes mellitus with diabetic neuropathy, without long-term current use of insulin ([facility]) Essential hypertension COMPREHENSIVE METABOLIC PANEL Routine 10/19/2024 12:53 PM EDT Type 2 diabetes mellitus with diabetic neuropathy, without long-term current use of insulin (CMS/HCC) Essential hypertension CBC WITH AUTO DIFFERENTIAL Routine 10/19/2024 12:53 PM EDT Type 2 diabetes mellitus with diabetic neuropathy, without long-term current use of insulin (CMS/HCC) Essential hypertension POCT GLYCATED HEMOGLOBIN, TOTAL Routine 10/19/2024 11:13 AM EDT Type 2 diabetes mellitus with diabetic neuropathy, without long-term current use of insulin (CMS/HCC) POCT GLUCOSE Routine 10/19/2024 11:08 AM EDT Type 2 diabetes mellitus with diabetic neuropathy, without long-term current use of insulin (CMS/HCC) HM COLONOSCOPY Routine 07/16/2023 2:56 PM EST ALBUMIN, RANDOM URINE W/CREATININE Routine 05/10/2023 12:09 PM EDT ZZZ HISTORICAL HEPATITIS C AB W/REFL TO HCV RNA, QN, PCR Routine 05/10/2022 11:02 AM EDT from Last 3 Months or Most Recently Relevant to Health Maintenance Results * (ABNORMAL) CBC auto differential (10/19/2024 12:53 PM EDT) White Blood Count 9.1 4.8 - 10.8 X10*3/uL [facility] Red Blood Count 4.49(L) 4.60 - 5.80 X10*6/uL [facility] Hemoglobin 13.3(L) 14.0 - 18.0 g/dl [facility] Hematocrit 40.2(L) 42.0 - 52.0 % [facility] Mean Corpuscular Volume 89.5 80.0 - 98.0 fL [facility] Mean Corpuscular Hemoglobin 29.6 27.0 - 33.0 pg [facility] Mean Corpuscular HGB Conc 33.1 31.0 - 36.0 g/dl [facility] Red Cell Distribution Width 13.2 11.0 - 16.0 % [facility] Platelet Count 253 160 - 400 X10*3/uL [facility] Mean Platelet Volume 10.9 9.4 - 12.4 fL [facility] Neutrophils Percent Auto 59.1 45 - 73 % [facility] Imm Gran Pct Auto 0.4 0.0 - 0.4 % [facility] Lymphocytes Percent Auto 33.0 20 - 40 % [facility] Monocytes Percent Auto 5.8 2 - 11 % [facility] Eosinophils Percent Auto 1.4 0 - 4 % [facility] Basophils Percent Auto 0.3 0 - 2 % [facility] NRBC Pct Auto 0.0 0.0 - 0.2 /100WBC [facility] Neutrophils Absolute Auto 5.4 2.0 - 8.3 x10*3/uL [facility] Imm Gran Abs Auto 0.04(H) 0.00 - 0.03 X10*3/uL [facility] Lymphocytes Absolute Auto 3.0 1.2 - 4.9 X10*3/uL [facility] Monocytes Absolute Auto 0.5 0.1 - 1.2 X10*3/uL [facility] Eosinophils Absolute Auto 0.1 0.0 - 0.4 X10*3/uL [facility] Basophils Absolute Auto 0.0 0.0 - 0.2 X10*3/uL [facility] NRBC Abs Auto 0.000 0.0 - 0.012 X10*3/uL [facility] Blood Venous blood specimen / Unknown 10/19/2024 12:53 PM EDT 10/19/2024 4:29 PM EDT us Joan Santos MD LAB BLOOD ORDERABLES Final Result [facility] [address] [place], [place] [phone] * (ABNORMAL) Lipid Panel, Standard (10/19/2024 12:53 PM EDT) Triglycerides 409(H) <150 mg/dL [facility] Comment:Desirable Triglyceri de: less than 150 mg/dLBorderline High Triglyceride 150-199 mg/dLHigh Triglyceride: 200-499 mg/dLVery High Triglyceride: greater than or equal to 5OO mg/dL Cholesterol 170 <200 mg/dL [facility] Comment:Desirable Cholestero l: less than 200 mg/dLBorderline High Cholesterol: 200-239 mg/dLHigh Cholesterol: greater than 239 mg/dL LDL Cholesterol Calculated TNP <100 mg/dL [facility] Comment:Unable to calculate the LDL. The formula of Friedwald,Mendez, and Anders is only valid if the triglycerides areless than 400 mg/dl. HDL Cholesterol 46 >40 mg/dL [facility] Comment:Desirable HDL: great er than 40 mg/dL Note: This HDL assay may give artificially low results in patients with liver disease. Blood Venous blood specimen / Unknown 10/19/2024 12:53 PM EDT 10/19/2024 4:29 PM EDT us Joan Santos MD LAB BLOOD ORDERABLES Final Result [facility] [address] [place] [address] [phone] * (ABNORMAL) Comprehensive Metabolic Panel (10/19/2024 12:53 PM EDT) Sodium 139 135 - 145 mmol/L [facility] Potassium 4.9 3.3 - 5.1 mmol/L [facility] Chloride 107 96 - 108 mmol/L [facility] Carbon Dioxide 23 22 - 29 mmol/L [facility] Anion Gap 14 12 - 20 [facility] Urea Nitrogen (BUN) 28(H) 9 - 16 mg/dL [facility] Creatinine, Serum 1.16 0.5 - 1.4 mg/dL [facility] Estimated Glomerular Filt Rate >60 [facility] Comment:Chronic Kidney Disea se: Estimated GFR < 60 mL/min/1.99n8Vliyvo Kidney Disease: Estimated GFR < 15 mL/min/1.73m2 Glucose 179(H) 60 - 115 mg/dL [facility] Calcium 9.9 8.4 - 10.2 mg/dL [facility] Bilirubin, Total 0.2 0.0 - 1.0 mg/dL [facility] Aspartate Amino Transferase 29 5 - 37 U/L [facility] Alanine Aminotransferase 28 0 - 40 U/L [facility] Total Protein 8.4(H) 6.5 - 8.0 g/dL [facility] Albumin Level 4.5 3.5 - 5.0 g/dL [facility] Alkaline Phosphatase 41 39 - 117 U/L [facility] Blood Venous blood specimen / Unknown 10/19/2024 12:53 PM EDT 10/19/2024 4:29 PM EDT Result [facility] [place] Joan Santos MD LAB BLOOD ORDERABLES Final Result [facility] [address] [place] [address] [phone] * (ABNORMAL) POCT HGB A1C (10/19/2024 11:13 AM EDT) Pathologist [facility] Hemoglobin A1C 7.7(A) 4.0 - 6.0 % QC Media Lot # [id number] Lot# Expiration Date [id number] Blood 10/19/2024 11:1 3 AM EDT Result Larry Joan Santos MD POINT OF CARE TEST EN TER/EDIT ORDERABLES Final Result * (ABNORMAL) POCT Glucose (10/19/2024 11:08 AM EDT) Pathologist [facility] Glucose Blood, POC 256(A) 60 - 200 mg/dL QC Media Lot # [id number] Lot# Expiration Date [id number] Blood Capillary blood specimen / Unknown 10/19/2024 11:08 AM EDT Result Larry Joan Santos MD POINT OF CARE TEST EN TER/EDIT ORDERABLES Final Result * Hm Colonoscopy (07/16/2023 2:56 PM EST) Enmanuel Cui MD HEALTH MAINTENANCE Final Result * (ABNORMAL) Albumin, Random Urine W/Creatinine (05/10/2023 12:09 PM EDT) Creatinine, Urine 141.27 mg/dL [facility] Microalbumin Urine 296.0 mg/L H [facility] Microalbum Creatinine Ratio Ur 209.5(H) <30 ug/mg cr [facility] Comment:Albumin/Creatinine R atio Reference Ranges: Normal: < 30 ug/mg creatinine Microalbuminuria: 30 - 300 ug/mg creatinineClinical Albuminuria: > 300 ug/mg creatinine 05/10/2023 12:0 9 PM EDT 05/10/2023 12:57 PM EDT Joan Santos MD LAB URINE ORDERABLES Final Result Performing Organization Address [facility] de Phone Number [facility] [address] [place] [address] [phone] * HEPATITIS C AB W/REFL TO HCV RNA, QN, PCR (05/10/2022 11:02 AM EDT) HEPATITIS C ANTIBODY NON-REACTI VE NON-REACT OLIVIA [facility] INDEX 0.12 <1.00 [facility] Comment: ?? HCV antibody was non-reactive. There is no laboratory ?? evidence of HCV infection. ?? In most cases, no further action is required. However, if recent HCV exposure is suspected, a test for HCV RNA (test code 95839) is suggested. ?? For additional information please refer to http://education.[employer].BlueKai/faq/RZT76r0 (This link is being provided for informational/ educational purposes only.) ?? 05/10/2022 11:0 2 AM EDT us Joan Santos MD HISTORICAL/NON ORDERA BLE LABS Final Result Performing Organization Address [facility] de Phone Number CONVERTED LEGACY LABS from Last 3 Months or Most Recently Relevant to Health Maintenance Insurance MEDICARE [facility] Care Teams Passenger Tire Builder Relationship Specialty Start Date End Date Joan Little MD [address] [place] [address] PCP - General Family Medicine 05/10/22
== END 2024-10-29 11:04 | disposition home or self-care (01) ==
LOC: HO.HCS 10:23
PROVIDERS: PCP Internal Medicine; Visit Provider Internal Medicine
DX: I25.10 Atherosclerotic heart disease of native coronary artery without angina pectoris (principal); Z95.1 Presence of aortocoronary bypass graft; E11.8 Type 2 diabetes mellitus with unspecified complications; I10 Essential (primary) hypertension; E78.5 Hyperlipidemia, unspecified
CPT/HCPCS: 93010; 99214; G2211

== ENCOUNTER → 2024-10-29 10:22 | Outpatient (BNVA) | payer OTHER, SELFPAY | PROVIDERS: PCP Internal Medicine; Visit Provider Internal Medicine | DX: I10 Essential (primary) hypertension (principal); I25.10 Atherosclerotic heart disease of native coronary artery without angina pectoris; E78.5 Hyperlipidemia, unspecified; E11.8 Type 2 diabetes mellitus with unspecified complications; Z95.1 Presence of aortocoronary bypass graft | CPT/HCPCS: 93005; 99212 ==

== ENCOUNTER 2024-11-10 11:27 | Outpatient (REF) | payer OTHER, SELFPAY ==
--- NOTE | ~2024-11-10 | XR_ITS ---
EXAMINATION: XR HAND, LEFT CLINICAL INFORMATION: swelling over lateral left hand COMPARISON: 05/05/2024. TECHNIQUE: PA, lateral, and oblique views of the left hand. FINDINGS: No fracture, dislocation, or suspicious bone lesion. Normal bone mineralization. Normal alignment. Mild arthritis in the first through third MCP joints. Joint spaces otherwise appear normal and preserved. Carpal bones intact and normally aligned. Soft tissues appear radiographically normal. XR/XR hand LT min 3V IMPRESSION: 1. No acute findings left hand. Electronically signed by: Garland Salinas MD 11/10/2024 12:10 PM EDT
--- OUTSIDE RECORDS SUMMARY | 2024-11-10 14:02 | XMS_ITS | Clinical Summary ---
Author Organization [facility] Address [address] [facility] [address] [place] [address] Phone Care Team Providers Care Community Health Nurse Supervisor Name Role Phone Joan Little MD Primary [...] Diabetes: Hemoglobin A1C 07/15/2023 04/15/2023 Influenza Vaccine (Season Ended) 2025 Pneumococcal Vaccine: 65+ Years Completed Hepatitis B Vaccine Aged Out No longe r eligible based on patient's age to complete this topic Insurance [facility] [place] [id number] Care Teams Community Health Nurse Supervisor Relationship Specialty Start Date End Date Joan Little MD [address] [place] [address] [place] [phone] PCP - General Internal Medicine 05/22/23
== END 2024-11-10 11:28 | disposition home or self-care (01) ==
LOC: HO.HHCX 11:27
PROVIDERS: Visit Provider Family Medicine
DX: R22.32 Localized swelling, mass and lump, left upper limb (principal)
CPT/HCPCS: 73130

== ENCOUNTER → 2024-11-10 11:27 | Outpatient (BNV) | payer OTHER, SELFPAY | PROVIDERS: Visit Provider Radiology Diagnostic Radiology | DX: M18.12 Unilateral primary osteoarthritis of first carpometacarpal joint, left hand (principal) | CPT/HCPCS: 73130 ==

== ENCOUNTER 2024-12-29 10:23 | Outpatient (AMB) | payer OTHER, SELFPAY ==
[2024-12-29 11:07] VITALS: BMI 26.8
--- NOTE | 2024-12-29 11:07 | A.OFFVIS_ITS ---
Vital Signs 12/29/24 11:07 Height 5 ft 4 in Weight 156 lb BMI 26.8 Intake Visit Reasons: OV- Left hand swelling Intake Note: Huber 69 yr old left hand dominant male presents today for his follow up visit for his left hand osteoarthritis pain that has worsen in the last 2 years, particularly the 2nd, 3rd and 4th MCP joints . States he is experiencing increase pain and would like to discuss injection vs repeat EMG. Hx of DM. Allergies ibuprofen Adverse Reaction (Intermediate, Verified 12/29/24 11:11) Swelling HPI HPI OV- Left hand swelling: Details: The patient is a 69-year-old left-hand dominant Croatian speaking man who returns to again discuss the numbness and tingling in his left hand as well as the pain in the MCP joints of his left hand. He is a somewhat poor historian. Initially he was talking about pain over the dorsal aspect of the left 2nd 3rd and 4th MCP joints extending down to the PIP joints of those digits. We repeatedly tried to help him understand the separation between pain and numbness and tingling. When I started talking about a possible steroid injection for the 3rd MCP joint, it appears he then understood that that injection was to treat pain in those joints. At that time, he corrected himself and said that he does not have pain in those joints. What he has is painful numbness and tingling that occurs throughout the day, particularly at rest, and during the nighttime. In further talking with him he said that he does get the painful numbness and tingling extending into the palmar fingertips of all of his fingers and that this is what bothers him the most.. He complains of daily numbness & tingling in all of the fingers of his left hand. He says this is constant, and worse at night, and has been present for ~5 years. He says this began after he took some sort of Viagra-like pill in [place] and he developed sudden numbness in his hand. He denies any numbness in his right hand. He also has a history of left lateral epicondylitis and wears a forearm strap. He has done some OT hand therapy for hand/wrist pain in the past, with limited relief. He denies any locking or catching. He says he used to do a lot of Street fighting when he was young man. He has Diabetes, CVD, a Hx of CABG, and a Hx of ETOH abuse. [facility] Medical History Tubular adenoma of colon Diverticulosis GERD (gastroesophageal reflux disease) Alcohol dependence with unspecified alcohol-induced disorder Osteoarthritis of hips, bilateral Chronic left shoulder pain Anxiety and depression Erectile dysfunction Hyperlipidemia, unspecified Essential hypertension Type 2 diabetes mellitus with unspecified complications Atherosclerotic cardiovascular disease Stomach ulcer Surgical History Hx of colonoscopy S/P CABG (coronary artery bypass graft) Family History Father No problems noted. Mother Breast cancer Sister No problems noted. Social History Household Members: None Housing: Apartment Are you a primary care asst to a significant other at home: No Do you presently have visiting nurse or other home services: No 75 years or older and lives alone: No Patient Tobacco Use Status: Former Tobacco user Tobacco use type: Cigarette Current occupation: left handed Physical Exam Vital Signs: BMI result Body Mass Index 26.8 Extrem Other: The patient was alert oriented and in no acute distress: On exam he is reporting dense numbness in all of the fingertips of his left hand. He says this is constant. No intrinsic or thenar wasting. He can make a fist and fully extend all of the digits of his left hand. No locking or catching He was not particularly tender to palpation of the 2nd 3rd and 4th MCP joints. He also had no A1 jc tenderness to any of the digits He did demonstrate that he gets painful numbness and tingling extending into the index middle and ring fingers, with the middle finger numbness and tingling being the worst. Radiographs: Three views of the left hand taken on 11/10/2024 were reviewed by me today in clinic. They do show some early arthritic changes in the 2nd 3rd and 4th MCP joints. The arthritis in the 3rd MCP joints appears to be more advanc ed. No fractures or dislocations. Nerve Conduction Study: FINDINGS: Left ulnar sensory nerve showed small amplitude. Left ulnar motor nerve, recording ADM, was within normal. But when recording at FDI, showed prolonged distal latencies. No conduction block across the elbow. All other nerves tested were within normal. Concentric needle EMG was performed in selected muscles of the left upper extremity. Study did not reveal signs of electric abnormalities as shown in the table above. IMPRESSION: 1. This is an abnormal study. 2. There is electrodiagnostic evidence suggestive of left chronic ulnar neuropathy, poorly localizable but suspect at the elbow. 3. There is no electrodiagnostic evidence for median neuropathy, brachial plexopathy, or cervical radiculopathy. Viridiana Arevalo MD, LEROY 05/28/24 Assessment & Plan Assessment & Plan (1) Cubital tunnel syndrome on left: Code(s): G56.22 - Lesion of ulnar nerve, left upper limb Category: Medical (2) Osteoarthritis of left hand: Code(s): M19.042 - Primary osteoarthritis, left hand Category: Medical (3) Numbness and tingling in left hand: Code(s): R20.0 - Anesthesia of skin; R20.2 - Paresthesia of skin Category: Medical Plan Assessment & Plan: 1. Left Cubital tunnel syndrome With dense numbness all fingers X5 years No history of numbness and tingling or burning progressing down the forearm to the hand No intrinsic wasting 2. Left hand numbness With dense numbness in the median nerve distribution X5 years No thenar wasting NCS from 05/28/24 was negative for carpal tunnel syndrome . NCS suggestive of possible left chronic neuropathy Of note, The patient reports finger numbness began after he took a Viagra-like pill from the streets of [place] I educated him about this condition I discussed operative and non-operative treatment options I am ordering a new nerve conduction study to reassess this issue, as his symptoms appear to be consistent with carpal tunnel syndrome as well. He will follow up after this study. It is likely that he may benefit from a cubital tunnel release, though that will not help him with the numbness in the median nerve distribution. If this 2nd nerve conduction study is negative for carpal tunnel syndrome, I might consider a? carpal tunnel injection to see if this provides him with any relief. 3. Left lateral epicondylitis This is being managed conservatively. He is currently wearing a forearm strap. If his symptoms continue we can consider a referral to OT hand therapy 4. Left hand osteoarthritis Particularly the 2nd, 3rd and 4th MCP joints I educated him about this condition After talking at length with him about these issues, and considering a possible 3rd MCP steroid injection, it does not appear that he is having pain within these joints. Our attention was then directed towards the numbness and tingling, his chief complaint. He has a Hx of street fighting when he was younger. Orders: Orders NE electromyogram (EMG) Today R20.0 - Anesthesia of skin, R20.2 - Paresthesia of skin NE nerve conduction velocity Today R20.0 - Anesthesia of skin, R20.2 - Paresthesia of skin Coding Level of Care Code Est Pt Level 4 (18165) Diagnoses Cubital tunnel syndrome on left G56.22 Osteoarthritis of left hand M19.042 Numbness and tingling in left hand R20.0; R20.2
--- OUTSIDE RECORDS SUMMARY | 2024-12-29 11:11 | XMS_ITS | Clinical Summary ---
Author Organization [facility] Address [address] [facility] [address] [place] [address] Phone Care Team Providers Care Jar Capper Name Role Phone Joan Little MD Primary [...] Influenza Vaccine (Season Ended) 2025 Pneumococcal Vaccine: 50+ Years Completed Hepatitis B Vaccine Aged Out No longe r eligible based on patient's age to complete this topic Insurance [facility] [place] [id number] Care Teams Jar Capper Relationship Specialty Start Date End Date Joan Little MD [address] [place] [address] [place] [phone] PCP - General Internal Medicine 05/22/23
== END 2024-12-29 12:08 | disposition home or self-care (01) ==
LOC: HO.HOS 10:24
PROVIDERS: Visit Provider Orthopaedic Surgery
DX: G56.22 Lesion of ulnar nerve, left upper limb (principal); M19.042 Primary osteoarthritis, left hand; R20.0 Anesthesia of skin; R20.2 Paresthesia of skin
CPT/HCPCS: 99214

== ENCOUNTER → 2024-12-29 10:23 | Outpatient (BNVA) | payer OTHER, SELFPAY | PROVIDERS: Visit Provider Orthopaedic Surgery | DX: M19.042 Primary osteoarthritis, left hand (principal); G56.22 Lesion of ulnar nerve, left upper limb; R20.0 Anesthesia of skin; R20.2 Paresthesia of skin | CPT/HCPCS: 99212 ==

== ENCOUNTER 2025-04-16 08:32 | Outpatient (REF) | payer OTHER, SELFPAY ==
--- NOTE | ~2025-04-16 | XR_ITS ---
EXAMINATION: XR SHOULDER, LEFT CLINICAL INFORMATION: M25.519 - Pain in unspecified shoulder COMPARISON: None available. TECHNIQUE: Three views of the left shoulder. FINDINGS: There is mild narrowing of the glenohumeral joint space and small glenoid marginal osteophytes. There is chondrocalcinosis in the inferior glenohumeral joint and in superior labrum. There is no dislocation. AC joint is unremarkable. XR/XR shoulder LT min 2V IMPRESSION: Mild degenerative changes of the left glenohumeral joint with chondrocalcinosis suggesting underlying CPPD arthropathy Electronically signed by: Mart Mcnally MD 04/16/2025 11:02 AM EDT
--- OUTSIDE RECORDS SUMMARY | 2025-04-19 09:37 | XMS_ITS | Encounter Summary ---
Author Organization [employer] Address [address] [facility] 7t [place] [address] Care Team Providers Care Two Way Radio Installer Name Role Phone Joan Little MD Primary Care Provide r Reason for Visit * Reason Onset Date Comments Durable Medical Equipment 04/08/2025 Encounter Details Date Type Department Care Team ([facility] st Contact Info) Description 04/08/2025 Telephone [facility] MEDICINE [address] [place], [place] [phone] Joan Little MD [address] [place] [address] Durable Medical Equipment Social History Tobacco Use [...] DME - scooter To be send to [facility] documented in this encounter Plan of Treatment Not on file documented as of this encounter Visit Diagnoses Not on filedocumented in this encounter Additional Health Concerns Assessment Noted Time PHQ-9 Depression Total Score: 5 10/20/19 25 1:17 PM EDT documented as of this encounter Care Teams Two Way Radio Installer Relationship Specialty Start Date End Date Joan Little MD [address] [place] [address] PCP - General Family Medicine 05/10/22 documented as of this encounter
--- OUTSIDE RECORDS SUMMARY | 2025-04-19 09:37 | XMS_ITS | Clinical Summary ---
Author Organization [facility] Address [address] [facility] [address] [place] [address] Phone Care Team Providers Care Heat Sealing Machine Operator Name Role Phone Joan Little MD [...] patient's age to complete this topic Insurance [facility] [place]A [id number] Care Teams Heat Sealing Machine Operator Relationship Specialty Start Date End Date Joan Little MD [address] [place] [address] [place] [phone] PCP - General Internal Medicine 05/22/23
--- OUTSIDE RECORDS SUMMARY | 2025-04-19 09:38 | XMS_ITS | Clinical Summary ---
Author Organization [employer] Address [address] [place] [address] 7t [place] [address] Care Team Providers Care Sales Executive Insurance Name Role Phone Joan Little MD Primary Care Provide r Allergies Active Allergy Reactions Criticality Noted Date Comments Ibuprofen Swelling High 02/13/2023 Medications * This document contains information received from the source organization and may not represent a complete record from that organization. Blood Glucose Monitoring Suppl (FreeStyle [place] Lite) w/Device kit 1 each by Subcutaneous Infusion route in the morning. 04/04/20 22 Active Blood Glucose Monitoring Suppl (Blood Glucose Monitor System) w/Device kitIndications:Ty pe 2 diabetes mellitus with diabetic neuropathy, without long-term current use of insulin ([facility]) Use to monitor glucose 1 kit 01/09/20 23 Active TRUEplus Lancets 33G miscIndications:T ype 2 diabetes mellitus without complications ([facility]) TEST BLOOD SUGAR TWICE DAILY DIRECTED 100 [...] neuropathy, without long-term current use of insulin ([facility]) Inject 30 Units under the skin at bedtime. 3 mL 12 04/15/20 23 Active gabapentin (Neurontin) 100 MG capsule TAKE 1 CAPSULE BY MOUTH EVERY NIGHT 90 capsule 2 05/06/20 23 Active gabapentin (Neurontin) 400 MG capsuleIndication s:Type 2 diabetes mellitus with diabetic neuropathy, without long-term current use of insulin ([facility]) TAKE 1 CAPSULE BY MOUTH THREE TIMES DAILY 90 capsule 1 05/08/20 23 Active amoxicillin-clavu lanate (Augmentin) 875-125 MG tablet Take 1 tablet by mouth 2 times daily. 14 tablet 06/19/20 23 Active senna (Senokot) 8.6 MG tablet TAKE 2 TABLETS BY MOUTH DAILY AT BEDTIME FOR CONSTIPATION 05/10/20 23 Active Continuous Blood Gluc Thread Reeler (FreeStyle Caitlin 2 [place]) deviceIndications :Type 2 diabetes mellitus with diabetic neuropathy, without long-term current use of insulin ([facility]) Scan sensor every 8 hours 60 each 10/21/19 24 Active Continuous Glucose Sensor (FreeStyle Caitlin 2 Sensor) miscIndications:T ype 2 diabetes mellitus with diabetic neuropathy, without long-term current use of insulin ([facility]) USE TO CHECK BLOOD SUGAR AND CHANGE EVERY 14 DAYS 2 each 3 06/16/20 24 Active Dulaglutide (Trulicity) 1.5 MG/0.5ML solution auto-injectorIndi cations:Type 2 diabetes mellitus with diabetic neuropathy, without long-term current use of insulin ([facility]) Inject 0.5 mL (1.5 mg) under the [...] neuropathy, without long-term current use of insulin ([facility]) USE DIRECTED TO TEST BLOOD SUGAR TWICE DAILY DIRECTED 100 strip 3 11/10/19 25 Active Jardiance 10 MGIndications:Typ e 2 diabetes mellitus with diabetic neuropathy, without long-term current use of insulin ([facility]) TAKE 1 TABLET BY MOUTH EVERY DAY 90 tablet 2 11/19/19 25 Active lisinopril 40 MG tablet TAKE 1 TABLET BY MOUTH EVERY DAY 90 tablet 2 11/19/19 25 Active Pentips Generic Pen [place] 32G X 4 MM misc USE DIRECTED [...] Type Department Care Team Description 04/13/2025 Telephone [facility] [address] [place] [address] Joan Little MD 04/08/2025 Telephone [facility] [address] [place] [address] Joan Little MD Durable Medical Equipment 03/18/2025 Telephone [facility] [address] [place] [address] Joan Little MD OCT RECALL 03/01/2025 Refill [facility] [address] [place] [address] Joan Little MD 02/19/2025 10:15 AM EDT Office Visit [facility] [address] [place] [phone] Joan Little MD Type 2 diabetes mellitus with diabetic neuropathy, without long-term current use of insulin ([facility]); Essential hypertension; Hypertriglyceridemia; Otitis of left ear; Lumbar back pain; Dietary counseling; Exercise counseling 02/19/2025 Travel 02/18/2025 Telephone [facility] [address] [place] [address] Joan Little MD Chart Prep 01/30/2025 Refill [facility] [address] [place] [address] Joan Little MD Chronic bilateral low back [...] neuropathy, without long-term current use of insulin ([facility]) POCT GLUCOSE Routine 02/19/2025 10:25 AM EDT Type 2 diabetes mellitus with diabetic neuropathy, without long-term current use of insulin ([facility]) LIPID PANEL, STANDARD Routine 10/19/2024 12:53 PM EDT Type 2 diabetes mellitus with diabetic neuropathy, without long-term current use of insulin ([facility]) Essential hypertension HM COLONOSCOPY Routine 07/16/2023 2:56 [...] Media Lot # [id number] Lot# Expiration Date ,369 Blood 02/19/2025 10:2 5 AM EDT Joan Santos MD POINT OF CARE TEST EN TER/EDIT ORDERABLES Final Result * POCT Glucose (02/19/2025 10:25 AM EDT) Glucose Blood, POC 197 60 - 200 mg/dL Comment:Random QC Media Lot # [id number] Lot# Expiration Date ,392,312 Blood Capillary blood specimen / Unknown 02/19/2025 10:25 AM EDT Joan Santos MD POINT OF CARE TEST EN TER/EDIT ORDERABLES Final Result * (ABNORMAL) Lipid Panel, Standard (10/19/2024 12:53 PM EDT) Triglycerides 409(H) <150 mg/dL [facility] Comment:Desirable Triglyceri de: less than 150 mg/dLBorderline High Triglyceride 150-199 mg/dLHigh Triglyceride: 200-499 mg/dLVery High Triglyceride: greater than or equal to 5OO mg/dL Cholesterol 170 <200 mg/dL [facility] Comment:Desirable Cholestero l: less than 200 mg/dLBorderline High Cholesterol: 200-239 mg/dLHigh Cholesterol: greater than 239 mg/dL LDL Cholesterol Calculated TNP <100 mg/dL [facility] Comment:Unable to calculate the LDL. The formula of Friedwald,Mendez, and Anders is only valid if the triglycerides areless than 400 mg/dl. HDL Cholesterol 46 >40 mg/dL [facility] Comment:Desirable HDL: great er than 40 mg/dL Note: This HDL assay may give artificially low results in patients with liver disease. Blood Venous blood specimen / Unknown 10/19/2024 12:53 PM EDT 10/19/2024 4:29 PM EDT Joan Santos MD LAB BLOOD ORDERABLES Final Result [facility] [address] [place] [address] [phone] * Hm Colonoscopy (07/16/2023 2:56 PM EST) Historical Provider HEALTH MAINTENANCE Final Result * (ABNORMAL) Albumin, Random Urine W/Creatinine (05/10/2023 12:09 PM EDT) Creatinine, Urine 141.27 mg/dL [facility] Microalbumin Urine 296.0 mg/L H [facility] Microalbum Creatinine Ratio Ur 209.5(H) <30 ug/mg cr [facility] Comment:Albumin/Creatinine R atio Reference Ranges: Normal: < 30 ug/mg creatinine Microalbuminuria: 30 - 300 ug/mg creatinineClinical Albuminuria: > 300 ug/mg creatinine 05/10/2023 12:0 9 PM EDT 05/10/2023 12:57 PM EDT Joan Santos MD LAB URINE ORDERABLES Final Result Performing Organization Address [facility] de Phone Number [facility] [address] [place] [phone] * HEPATITIS C AB W/REFL TO [...] a test for HCV RNA (test code 77158) is suggested. For additional information please refer to http://education.Worldscape.City BeBe/faq/AOO92i3 (This link is being provided for informational/ educational purposes only.) 05/10/2022 11:0 2 AM EDT Joan Santos MD HISTORICAL/NON ORDERA BLE LABS Final Result Performing Organization Address [facility] de Phone Number CONVERTED LEGACY LABS from Last 3 Months or Most Recently Relevant to Health Maintenance Insurance [facility] OPTIONS (O D-SNP) [facility] Care Teams Sales Executive Insurance Relationship Specialty Start Date End Date Joan Little MD [address] [place] [phone] PCP - General Family Medicine 05/10/22
--- OUTSIDE RECORDS SUMMARY | 2025-04-19 09:38 | XMS_ITS | Encounter Summary ---
Author Organization [employer] Address [address] [facility] 7t [place] [address] Care Team Providers Care Personal Development Coach Name Role Phone Joan Little MD Primary Care Provide r Reason for Visit * Reason Comments Med Refill Encounter Details Date Type Department Care Team ([facility] st Contact Info) Description 06/18/2024 Refill [facility] [address] [place], [place] [phone] Joan Little MD [address] [place] [address] Depressive disorder; Allergic cough; Essential hypertension Social [...] documented as of this encounter Care Teams Personal Development Coach Relationship Specialty Start Date End Date Joan Little MD [address] [place] [address] PCP - General Family Medicine 05/10/22 documented as of this encounter
--- OUTSIDE RECORDS SUMMARY | 2025-04-19 09:38 | XMS_ITS | Encounter Summary ---
Author Organization [employer] Address [address] [facility] [address] [place] [address] Care Team Providers Care Director Of Managed Services Name Role Phone Joan Little MD Primary Care Provide r Reason for Visit * Reason Comments Med Refill Encounter Details Date Type Department Care Team ([facility] st Contact Info) Description 07/19/2023 Refill [facility] MEDICINE [address] [place], [place] [phone] Joan Little MD [address] [place], [place] [phone] Social History Tobacco Use Types Packs/Day Years [...] documented as of this encounter Care Teams Director Of Managed Services Relationship Specialty Start Date End Date Joan Litlte MD [address] [place] [phone] PCP - General Family Medicine 05/10/22 documented as of this encounter
--- OUTSIDE RECORDS SUMMARY | 2025-04-19 09:38 | XMS_ITS | Encounter Summary ---
Author Organization [employer] Address [address] [facility] [address] [place] [address] Care Team Providers Care Sweet Dough Mixer Name Role Phone Joan Little MD Primary Care Provide r Encounter Details Date Type Department Care Team ([facility] st Contact Info) Description 10/03/2022 Orders Only [facility] MEDICINE [address] [place], [place] [phone] Felecia Victor MD [address] [place], [place] [phone] Gastroesophageal reflux disease without esophagitis (Primary Dx) [...] Whole Blood 112 60 - 115 mg/dL [facility] Comment:METER #: [id number] 03/08/2023 3:40 PM EDT 03/08/2023 3:44 PM EDT us [facility] External Provider LAB BLO OD ORDERABLES Final Result [facility] [address] [place] [address] [phone] * OBSX1 (03/08/2023 2:17 PM EDT) OBS1 POSITIVE NEGATIVE [facility] 03/08/2023 2:17 PM EDT 03/08/2023 2:28 PM EDT us [facility] External Provider LAB BLO OD ORDERABLES Final Result [facility] [address] [place] [address] [phone] * (ABNORMAL) Comprehensive Metabolic Panel (03/08/2023 11:10 AM EDT) [facility] Sodium 138 135 - 145 mmol/L [facility] Potassium 5.0 3.3 - 5.1 mmol/L [facility] Chloride 105 96 - 108 mmol/L [facility] Carbon Dioxide 20(L) 22 - 29 mmol/L [facility] Anion Gap 18 12 - 20 [facility] Urea Nitrogen (BUN) 20(H) 9 - 16 mg/dL [facility] Creatinine, Serum 1.27 0.5 - 1.4 mg/dL [facility] Creatinine Clr Calc Pharmacy 52.5 [facility] Comment:eGFR (calculated fro m the MDRD study equation) and eCrCl(calculated from the Cockcroft-Gault equation) are based ondifferent parameters and may not yield comparable results.If eCrCl result is absurd, please check patient'sheight/weight. Estimated Glomerular Filt Rate 57 [facility] Comment:NOTE: For -Am erican individuals, multiply the result by 1.210.Chronic Kidney Disease: Estimated GFR < 60 mL/min/1.83q8Ipread Kidney Disease: Estimated GFR < 15 mL/min/1.73m2 Glucose 278(H) 60 - 115 mg/dL [facility] Calcium 10.1 8.4 - 10.2 mg/dL [facility] Bilirubin, Total 0.2 0.0 - 1.0 mg/dL [facility] Aspartate Amino Transferase 18 5 - 37 U/L [facility] Alanine Aminotransferase 14 0 - 40 U/L [facility] Total Protein 7.9 6.5 - 8.0 g/dL [facility] Albumin Level 4.2 3.5 - 5.0 g/dL [facility] Alkaline Phosphatase 38(L) 39 - 117 U/L [facility] 03/08/2023 11:1 0 AM EDT 03/08/2023 11:13 AM EDT us [facility] External Provider LAB BLO OD ORDERABLES Final Result [facility] [address] [place] [address] [phone] * (ABNORMAL) CBC auto differential (03/08/2023 11:10 AM EDT) White Blood Count 9.2 4.8 - 10.8 X10*3/uL [facility] Red Blood Count 4.12(L) 4.60 - 5.80 X10*6/uL [facility] Hemoglobin 12.1(L) 14.0 - 18.0 g/dl [facility] Hematocrit 36.0(L) 42.0 - 52.0 % [facility] Mean Corpuscular Volume 87.4 80.0 - 98.0 fL [facility] Mean Corpuscular Hemoglobin 29.4 27.0 - 33.0 pg [facility] Mean Corpuscular HGB Conc 33.6 31.0 - 36.0 g/dl [facility] Red Cell Distribution Width 13.2 11.0 - 16.0 % [facility] Platelet Count 280 160 - 400 X10*3/uL [facility] Mean Platelet Volume 9.8 9.4 - 12.4 fL [facility] Neutrophils Percent Auto 58.7 45 - 73 % [facility] Imm Gran Pct Auto 0.3 0.0 - 0.4 % [facility] Lymphocytes Percent Auto 31.6 20 - 40 % [facility] Monocytes Percent Auto 6.9 2 - 11 % [facility] Eosinophils Percent Auto 2.1 0 - 4 % [facility] Basophils Percent Auto 0.4 0 - 2 % [facility] NRBC Pct Auto 0.0 0.0 - 0.2 /100WBC [facility] Neutrophils Absolute Auto 5.4 2.0 - 8.3 x10*3/uL [facility] Imm Gran Abs Auto 0.03 0.00 - 0.03 X10*3/uL [facility] Lymphocytes Absolute Auto 2.9 1.2 - 4.9 X10*3/uL [facility] Monocytes Absolute Auto 0.6 0.1 - 1.2 X10*3/uL [facility] Eosinophils Absolute Auto 0.2 0.0 - 0.4 X10*3/uL [facility] Basophils Absolute Auto 0.0 0.0 - 0.2 X10*3/uL [facility] NRBC Abs Auto 0.000 0.0 - 0.012 X10*3/uL [facility] 03/08/2023 11:1 0 AM EDT 03/08/2023 11:13 AM EDT [facility] External Provider LAB BLO OD ORDERABLES Final Result [facility] [address] [place] [phone] * High Sensitivity Troponin I (02/17/2023 11:28 AM EDT) TROPONIN I HIGH SENSITIVITY <2.7 <3.5 - 35.0 ng/L [facility] Comment:The Macias high sens itivity Troponin-I results should beused in conjunction with other diagnostic information suchas ECG, clinical observations and information, and patientsymptoms to aid in the diagnosis of NH. 02/17/2023 11:2 8 AM EDT 02/17/2023 11:33 AM EDT [facility] External Provider LAB BLO OD ORDERABLES Final Result Performing Organization Address City/[facility]/ZIP Co de Phone Number [facility] [address] [place] [address] [phone] * (ABNORMAL) Basic Metabolic Panel (02/17/2023 11:28 AM EDT) Sodium 137 135 - 145 mmol/L [facility] Potassium 5.1 3.3 - 5.1 mmol/L [facility] Chloride 102 96 - 108 mmol/L [facility] Carbon Dioxide 23 22 - 29 mmol/L [facility] Anion Gap 17 12 - 20 [facility] Urea Nitrogen (BUN) 12 9 - 16 mg/dL [facility] Creatinine, Serum 1.08 0.5 - 1.4 mg/dL [facility] Creatinine Clr Calc Pharmacy 62.3 [facility] Comment:eGFR (calculated fro m the MDRD study equation) and eCrCl(calculated from the Cockcroft-Gault equation) are based ondifferent parameters and may not yield comparable results.If eCrCl result is absurd, please check patient'sheight/weight. Estimated Glomerular Filt Rate >60 [facility] Comment:NOTE: For -Am erican individuals, multiply the result by 1.210.Chronic Kidney Disease: Estimated GFR < 60 mL/min/1.39r1Zdnbks Kidney Disease: Estimated GFR < 15 mL/min/1.73m2 Glucose 247(H) 60 - 115 mg/dL [facility] Calcium 10.5(H) 8.4 - 10.2 mg/dL [facility] 02/17/2023 11:2 8 AM EDT 02/17/2023 11:33 AM EDT [facility] External Provider LAB BLO OD ORDERABLES Final Result Performing Organization Address City/[facility]/ZIP Co de Phone Number [facility] [address] [place] [phone] [phone] * (ABNORMAL) CBC auto differential (02/17/2023 11:28 AM EDT) White Blood Count 8.1 4.8 - 10.8 X10*3/uL [facility] Red Blood Count 4.64 4.60 - 5.80 X10*6/uL [facility] Hemoglobin 13.5(L) 14.0 - 18.0 g/dl [facility] Hematocrit 40.8(L) 42.0 - 52.0 % [facility] Mean Corpuscular Volume 87.9 80.0 - 98.0 fL [facility] Mean Corpuscular Hemoglobin 29.1 27.0 - 33.0 pg [facility] Mean Corpuscular HGB Conc 33.1 31.0 - 36.0 g/dl [facility] Red Cell Distribution Width 12.9 11.0 - 16.0 % [facility] Platelet Count 243 160 - 400 X10*3/uL [facility] Mean Platelet Volume 9.9 9.4 - 12.4 fL [facility] Neutrophils Percent Auto 54.9 45 - 73 % [facility] Imm Gran Pct Auto 0.6(H) 0.0 - 0.4 % [facility] Lymphocytes Percent Auto 34.6 20 - 40 % [facility] Monocytes Percent Auto 7.5 2 - 11 % [facility] Eosinophils Percent Auto 2.0 0 - 4 % [facility] Basophils Percent Auto 0.4 0 - 2 % [facility] NRBC Pct Auto 0.0 0.0 - 0.2 /100WBC [facility] Neutrophils Absolute Auto 4.5 2.0 - 8.3 x10*3/uL [facility] Imm Gran Abs Auto 0.05(H) 0.00 - 0.03 X10*3/uL [facility] Lymphocytes Absolute Auto 2.8 1.2 - 4.9 X10*3/uL [facility] Monocytes Absolute Auto 0.6 0.1 - 1.2 X10*3/uL [facility] Eosinophils Absolute Auto 0.2 0.0 - 0.4 X10*3/uL [facility] Basophils Absolute Auto 0.0 0.0 - 0.2 X10*3/uL [facility] NRBC Abs Auto 0.000 0.0 - 0.012 X10*3/uL [facility] 02/17/2023 11:2 8 AM EDT 02/17/2023 11:33 AM EDT us [facility] External Provider LAB BLO OD ORDERABLES Final Result [facility] [address] [place] [phone] [phone] * T-SPOT??.TB (02/11/2023 11:26 AM EDT) T Spot TB Negative Negative [facility] Comment:A negative test resu lt does [...] as aquantitative test. TS PANEL A 0 [facility] TS PANEL B 0 [facility] Negative Control Passed [facility] Positive Control Passed [facility] Comment:For additional infor brody, please refer tohttp://education.Grability/faq/LCH002(This link is being provided for informational/educational purposes only.)THIS TEST WAS PERFORMED AT:[employer]/[id number] [place] [phone] WHITAKER MD,PHD 02/11/2023 11:2 6 AM EDT 02/11/2023 1:16 PM EDT [facility] External Provider LAB BLO OD ORDERABLES Final Result Performing Organization Address City/[facility]/ZIP Co de Phone Number [facility] [address] [place] [address] [phone] * Measles Antibody (IgG), Immune Status (02/11/2023 11:26 AM EDT) Rubeola IgG (Measles) >300.00 AU/mL [facility] Comment:AU/mL Interpretation ----- <13.50 Not consistent with ckbqapir92.50-16.49 Equivocal>16.49 Consistent with immunityThe presence of measles IgG suggests immunization orpast or current infection with measles virus.For additional information, please refer tohttp://[employer].adjust/faq/UPU212(This link is being provided for informational/educational purposes only.)THIS TEST WAS PERFORMED AT:[employer] [place] [phone] SOTO MD 02/11/2023 11:2 6 AM EDT 02/11/2023 1:16 PM EDT [facility] External Provider LAB BLO OD ORDERABLES Final Result Performing Organization Address [facility] Co de Phone Number [facility] [address] [place] [address] [phone] * Rubella Antibody (IgG), Immune Status (02/11/2023 11:26 AM EDT) Rubella IgG Antibody 31.70 Index [facility] Comment:Index Interpretation ----- <0.90 Not consistent with immunity 0.90-0.99 Equivocal > or = 1.00 Consistent with immunityThe presence of rubella IgG antibody suggestsimmunization or past or current infection withrubella virus.THIS TEST WAS PERFORMED AT:[employer] [place] [phone] SOTO MD 02/11/2023 11:2 6 AM EDT 02/11/2023 1:16 PM EDT [facility] External Provider LAB BLO OD ORDERABLES Final Result Performing Organization Address [facility] Co de Phone Number [facility] [address] [place] [address] [phone] * Mumps Virus Antibody (IgG), Immune Status (02/11/2023 11:26 AM EDT) Mumps Virus IgG Antibody 27.40 AU/mL [facility] Comment:AU/mL Interpretatio n------- <9.00 Not consistent with immunity9.00-10.99 Equivocal>10.99 Consistent with immunityThe presence of mumps IgG antibody suggests immunizationor past or current infection with mumps virus.THIS TEST WAS PERFORMED AT:[employer] [address] [phone] SOTO MD 02/11/2023 11:2 6 AM EDT 02/11/2023 1:16 PM EDT [facility] External Provider LAB BLO OD ORDERABLES Final Result Performing Organization Address [facility] de Phone Number [facility] [address] [place] [address] [phone] documented in this encounter Visit Diagnoses Diagnosis Gastroesophageal reflux disease without esophagitis- Primary Esophageal reflux documented in this encounter Care Teams Sweet Dough Mixer Relationship Specialty Start Date End Date Joan Little MD [address] [place] [phone] PCP - General Family Medicine 05/10/22 documented as of this encounter
--- OUTSIDE RECORDS SUMMARY | 2025-04-19 09:38 | XMS_ITS | Encounter Summary ---
Author Organization [employer] Address [address] [place] [address] Care Team Providers Care Education Managers Name Role Phone Joan Little MD Primary Care Provide r Encounter Details Date Type Department Care Team ([facility] st Contact Info) Description 10/08/[address] [facility] [address] [place], [place] [phone] Provider, MD Enmanuel Social History Tobacco Use [...] documented as of this encounter Care Teams Education Managers Relationship Specialty Start Date End Date Joan Little MD [address] [place] [address] PCP - General Family Medicine 05/10/22 documented as of this encounter
== END 2025-04-16 08:33 | disposition home or self-care (01) ==
LOC: HO.HOSX 08:32
PROVIDERS: Visit Provider Physician Assistant
DX: M75.102 Unspecified rotator cuff tear or rupture of left shoulder, not specified as traumatic (principal); M25.512 Pain in left shoulder
CPT/HCPCS: 20610; 73030; 99212; J0665; J1100; J2003

== ENCOUNTER 2025-04-16 10:27 | Outpatient (AMB) | payer OTHER, SELFPAY ==
--- NOTE | 2025-04-16 10:29 | MHC.OFFVIS ---
Vital Signs 04/16/25 10:42 Height 5 ft 4 in Weight 156 lb BMI 26.8 Handedness Left Intake Visit Reasons: OV- Left shoulder pain Intake Note: Huber is a 69 year old left hand dominant male who presents in the office today for a follow up of his left shoulder pain. History of left biceps tenotomy and labral debridement with SAD,09/11/[address] Barbosa. Patient reports he is having pain since September of this year, he was moving a bed frame and felt some pain in his shoulder ever since. His pain is on the lateral aspect of the shoulder. Field Support Representative Services: Field Support Representative Present ([id number]) Allergies ibuprofen Adverse Reaction (Intermediate, Verified 12/29/24 11:11) Swelling HPI HPI OV- Left shoulder pain: Details: Mr. Richey is a 69-year-old male who presents to the office today for evaluation of a new injury to his left shoulder. He has a past history of left biceps tenotomy and labral debridement with subacromial decompression performed by Dr. Barbosa on 09/11/2023. He reports that in September of this year he was lifting a mattress up over his head and felt pain. His pain has been constant ever since. He has difficulty with overhead motion. He does report after his surgery in September of last year he was noncompliant with physical therapy. COUNTS INCLUDE 234 BEDS AT THE [facility] Medical History Tubular adenoma of colon Diverticulosis GERD (gastroesophageal reflux disease) Alcohol dependence with unspecified alcohol-induced disorder Osteoarthritis of hips, bilateral Chronic left shoulder pain Anxiety and depression Erectile dysfunction Hyperlipidemia, unspecified Essential hypertension Type 2 diabetes mellitus with unspecified complications Atherosclerotic cardiovascular disease Stomach ulcer Surgical History Hx of colonoscopy S/P CABG (coronary artery bypass graft) Family History Father No problems noted. Mother Breast cancer Sister No problems noted. Social History Household Members: None Housing: Apartment Are you a primary cattle care worker to a significant other at home: No Do you presently have visiting nurse or other home services: No 75 years or older and lives alone: No Patient Tobacco Use Status: Former Tobacco user Tobacco use type: Cigarette Current occupation: left handed Review of Systems Const All systems reviewed & are unremarkable except as noted in HPI and below Physical Exam Vital Signs: BMI result Body Mass Index 26.8 Const General: cooperative, healthy appearing and no acute distress Resp Effort & Inspection: normal respiratory effort and able to speak in complete sentences Extrem Other: Left shoulder: Normal to inspection. No ecchymosis, erythema, or edema. Forward flexion to end range. Abduction to 90 degrees. Stiffness with external rotation. Negative cross-body reach. 5/5 strength with empty can, belly press and lift-off.. NVI. Psych Appearance: grossly normal Mental Status: mental status grossly normal Attitude: cooperative Office Procedures AMB Joint Injection/Aspiration Joint Injection/Aspiration Primary Site: left shoulder Prep: site was prepped using aseptic technique, ethochloride spray was applied and injection warnings given Injected: 40 mg of, with 3 mL of (2% plain lidocaine), 0.25% bupivacaine and decadron Approach Used: posterolateral Procedure: The patient tolerated the procedure well, but had some pain with the injection and there was some relief with the local anesthesia Coding 96524 - Large joint Procedure code (CPT) selection complete Assessment & Plan Assessment & Plan (1) Painful arc syndrome of left shoulder: Code(s): M75.102 - Unspecified rotator cuff tear or rupture of left shoulder, not specified as traumatic Category: Medical Plan Mr. Richey is a 69-year-old male who presents to the office today for evaluation of a new injury to his left shoulder. He has a past history of left biceps tenotomy and labral debridement with subacromial decompression performed by Dr. Barbosa on 09/11/2023. He reports that in September of this year he was lifting a mattress up over his head and felt pain. His pain has been constant ever since. He has difficulty with overhead motion. He does report after his surgery in September of last year he was noncompliant with physical therapy. While in the office today, we discussed cortisone injection and physical therapy. Patient is amenable to both options. The patient was offered a cortisone injection in the left shoulder. The patient was explained the risks, benefits, and alternatives to receiving this injection. After receiving consent for the injection, the patient had the procedure done while in the office today. The patient tolerated the procedure well with no complications. Additionally, I placed a physical therapy order in which the patient will attend. Should the patient attend all physical therapy sessions and continued to have difficulties the next step would be consideration of MRI imaging. Follow-up will be PRN, or sooner if needed X-rays of the left shoulder which were obtained while in the office today and were reviewed by me, Bhakti Butt PA-C, revealed mild degenerative changes. Orders: Orders XR shoulder LT min 2V Today M25.519 - Pain in unspecified shoulder Coding Level of Care Code Est Pt Level 3 (11143) Diagnoses Painful arc syndrome of left shoulder M75.102 CPT Codes Coding - 63019 Large joint: 01755 - Large joint ([id number])
[2025-04-16 10:42] VITALS: BMI 26.8
--- OUTSIDE RECORDS SUMMARY | 2025-04-16 12:01 | XMS_ITS | Clinical Summary ---
Author Organization [facility] Address [address] [facility] [address] [place] [address] Phone Care Team Providers Care Meter Tester Primary Name Role Phone Joan Little MD Primary [...] Hemoglobin A1C 07/15/2023 04/15/2023 Influenza Vaccine (#1) 2025 Pneumococcal Vaccine: 50+ Years Completed 3 Hepatitis B Vaccine Aged Out No longe r eligible based on patient's age to complete this topic Insurance [facility] [place] [id number] Care Teams Meter Tester Primary Relationship Specialty Start Date End Date Joan Little MD [address] [place] [address] [place] [phone] PCP - General Internal Medicine 05/22/23
--- OUTSIDE RECORDS SUMMARY | 2025-04-16 12:01 | XMS_ITS | Encounter Summary ---
Author Organization [employer] Address [address] [facility] [address] [facility] [place] [address] Care Team Providers Care Aerial Erector Name Role Phone Joan Little MD Primary Care Provide r Encounter Details Date Type Department Care Team ([facility] st Contact Info) Description 04/13/2025 Telephone [facility] MED & PEDS [address] [place], [place] [phone] Joan Little MD [address] [place] [address] Social History Tobacco Use Types Packs/Day Years Used Date Smoking Tobacco: Former Cigarettes Q uit: 2009 Passive Smoke Exposure: Past Smokeless Tobacco: Never Alcohol Use Standard Drinks/Week Comments Yes 3 (1 standard drink = 0.6 oz pur e alcohol) Occasionally Alcohol Answer Date Recorded How often do you have a drink containing alcohol ? 2 02/19/2025 How many drinks containing a lcohol do you have on a typical day when you are drinking? 4 02/19/2025 How often do you have six or more drinks on one occasion? 3 02/19/2025 Depression Answer Date Recorded Patient Health Questionnaire-9 [...] encounter Miscellaneous Notes * Telephone Encounter - Raul Higginbotham [place] - 04/13/2025 10:08 AM EDT TC- Patient to schedule an appt (NOV Recall) with F\U Mail box was full.Mailed recall letter. documented in this encounter Plan of Treatment Not on file documented as of this encounter Visit Diagnoses Not on filedocumented in this encounter Additional Health Concerns Assessment Noted Time PHQ-9 Depression Total Score: 5 10/20/19 25 1:17 PM EDT documented as of this encounter Care Teams Aerial Erector Relationship Specialty Start Date End Date Joan Little MD [address] [place] [address] PCP - General Family Medicine 05/10/22 documented as of this encounter
--- OUTSIDE RECORDS SUMMARY | 2025-04-16 12:01 | XMS_ITS | Encounter Summary ---
Author Organization [employer] Address [address] [facility] [address] [place] [address] Care Team Providers Care Shuttle Threader Name Role Phone Joan Little MD Primary Care Provide r Reason for Visit * Reason Onset Date Comments Durable Medical Equipment 04/08/2025 Encounter Details Date Type Department Care Team ([facility] st Contact Info) Description 04/08/2025 Telephone [facility] MEDICINE [address] [place], [place] [phone] Joan Little MD [address] [place] [address] Durable Medical Equipment Social History Tobacco Use Types Packs/Day Years [...] encounter Miscellaneous Notes * Telephone Encounter - Adrianna Lao - 04/08/2025 3:36 PM EDT Tc from [employer] requesting a new scrip for DME - scooter To be send to [facility] documented in this encounter Plan of Treatment Not on file documented as of this encounter Visit Diagnoses Not on filedocumented in this encounter Additional Health Concerns Assessment Noted Time PHQ-9 Depression Total Score: 5 10/20/19 25 1:17 PM EDT documented as of this encounter Care Teams Shuttle Threader Relationship Specialty Start Date End Date Joan Little MD [address] [place] [address] PCP - General Family Medicine 05/10/22 documented as of this encounter
--- OUTSIDE RECORDS SUMMARY | 2025-04-16 12:02 | XMS_ITS | Encounter Summary ---
Author Organization [employer] Address [address] [facility] [place] [address] Care Team Providers Care Batterboard Setter Name Role Phone Joan Little MD Primary Care Provide r Encounter Details Date Type Department Care Team ([facility] st Contact Info) Description 10/08/2024 Orders Only [facility] MED & PEDS [address] [place], [place] [phone] Provider, MD Enmanuel Social History Tobacco Use [...] documented as of this encounter Care Teams Batterboard Setter Relationship Specialty Start Date End Date Joan Little MD [address] [place] [address] PCP - General Family Medicine 05/10/22 documented as of this encounter
--- OUTSIDE RECORDS SUMMARY | 2025-04-16 12:02 | XMS_ITS | Encounter Summary ---
Author Organization [employer] Address [address] [facility] 7t [place] [address] Care Team Providers Care End Stapler Name Role Phone Joan Little MD Primary Care Provide r Reason for Visit * Reason Comments Med Refill Encounter Details Date Type Department Care Team ([facility] st Contact Info) Description 07/19/2023 Refill [facility] MEDICINE [address] [place], [place] [phone] Joan Little MD [address] [place], [place] [phone] Social History Tobacco Use Types Packs/Day Years [...] documented as of this encounter Care Teams End Stapler Relationship Specialty Start Date End Date Joan Little MD [address] [place] [phone] PCP - General Family Medicine 05/10/22 documented as of this encounter
--- OUTSIDE RECORDS SUMMARY | 2025-04-16 12:02 | XMS_ITS | Clinical Summary ---
Author Organization [employer] Address [address] [place] [address] 7t [place] [address] Care Team Providers Care Manager Banquet Name Role Phone Joan Little MD Primary Care Provide r Allergies Active Allergy Reactions Criticality Noted Date Comments Ibuprofen Swelling High 02/13/2023 Medications * This document contains information received from the source organization and may not represent a complete record from that organization. Blood Glucose Monitoring Suppl (FreeStyle [place] Lite) w/Device kit 1 each by Subcutaneous Infusion route in the morning. 04/04/20 22 Active Blood Glucose Monitoring Suppl (Blood Glucose Monitor System) w/Device kitIndications:Ty pe 2 diabetes mellitus with diabetic neuropathy, without long-term current use of insulin ([facility]) Use to monitor glucose 1 kit 01/09/20 23 Active TRUEplus Lancets 33G miscIndications:T ype 2 diabetes mellitus without complications ([facility]) TEST BLOOD SUGAR TWICE DAILY DIRECTED 100 [...] neuropathy, without long-term current use of insulin ([facility]) Inject 30 Units under the skin at bedtime. 3 mL 12 04/15/20 23 Active gabapentin (Neurontin) 100 MG capsule TAKE 1 CAPSULE BY MOUTH EVERY NIGHT 90 capsule 2 05/06/20 23 Active gabapentin (Neurontin) 400 MG capsuleIndication s:Type 2 diabetes mellitus with diabetic neuropathy, without long-term current use of insulin ([facility]) TAKE 1 CAPSULE BY MOUTH THREE TIMES DAILY 90 capsule 1 05/08/20 23 Active amoxicillin-clavu lanate (Augmentin) 875-125 MG tablet Take 1 tablet by mouth 2 times daily. 14 tablet 06/19/20 23 Active senna (Senokot) 8.6 MG tablet TAKE 2 TABLETS BY MOUTH DAILY AT BEDTIME FOR CONSTIPATION 05/10/20 23 Active Continuous Blood Gluc Audit Reviewer (FreeStyle Caitlin 2 [place]) deviceIndications :Type 2 diabetes mellitus with diabetic neuropathy, without long-term current use of insulin ([facility]) Scan sensor every 8 hours 60 each 10/21/19 24 Active Continuous Glucose Sensor (FreeStyle Caitlin 2 Sensor) miscIndications:T ype 2 diabetes mellitus with diabetic neuropathy, without long-term current use of insulin ([facility]) USE TO CHECK BLOOD SUGAR AND CHANGE EVERY 14 DAYS 2 each 3 06/16/20 24 Active Dulaglutide (Trulicity) 1.5 MG/0.5ML solution auto-injectorIndi cations:Type 2 diabetes mellitus with diabetic neuropathy, without long-term current use of insulin ([facility]) Inject 0.5 mL (1.5 mg) under the [...] morning. 30 tablet 2 06/18/20 24 Active FLUoxetine [...] NEEDED. 15 tablet 3 09/25/19 25 Active FREESTYLE LITE test stripIndications: Type 2 diabetes mellitus with diabetic neuropathy, without long-term current use of insulin ([facility]) USE DIRECTED TO TEST BLOOD SUGAR TWICE DAILY DIRECTED 100 strip 3 11/10/19 25 Active Jardiance 10 MGIndications:Typ e 2 diabetes mellitus with diabetic neuropathy, without long-term current use of insulin ([facility]) TAKE 1 TABLET BY MOUTH EVERY DAY 90 tablet 2 11/19/19 25 Active lisinopril 40 MG tablet TAKE 1 TABLET BY MOUTH EVERY DAY 90 tablet 2 11/19/19 25 Active Pentips Generic Pen [place] 32G X 4 MM misc USE DIRECTED 100 each 5 11/19/19 25 Active cetirizine (ZyrTEC) 10 MG tabletIndications :Allergic cough TAKE 1 TABLET BY MOUTH ONCE DAILY 30 tablet 2 12/19/19 25 Active gabapentin (Neurontin) 300 MG capsuleIndication s:Chronic bilateral low back pain, unspecified whether sciatica present TAKE 1 CAPSULE BY MOUTH TWICE DAILY 60 capsule 2 02/03/20 25 Active fenofibrate (Tricor) 48 MG tabletIndications :Hypertriglycerid emia Take 1 tablet (48 mg) by mouth Once per day. 30 tablet 11 02/20/20 25 026 Active Neomycin-Polymyxi n-HC 1 % solutionIndicatio ns:Otitis of left ear Administer 3 drops into affected ear(s) 4 times daily. 10 mL 02/20/20 25 Active acetaminophen (Tylenol) 500 MG tabletIndications :Lumbar back pain Take 2 tablets by oral every 8 hrs as needed not to exceed 8 tablets per 24hrs 60 tablet 1 02/20/20 25 Active Aspirin Low Dose 81 MG EC tablet TAKE 1 TABLET BY MOUTH EVERY DAY 90 tablet 2 03/02/20 25 Active omeprazole (PriLOSEC) [address] capsuleIndication s:Gastroesophagea l reflux disease without esophagitis Take 1 capsule (20 mg) by mouth before breakfast and before evening meal. 90 capsule 1 09/26/19 23 023 Discontin ued(Drug interacti on) Active Problems Problem Noted Date Diagnosed Date Otitis of left ear 02/19/2025 Localized swelling on left hand 11/10/2024 Assessment & Plan (11/10/2024 12:36 PM EDT): No evidence of irritable joint. Will check xray, uric acid and CBC. He reports he needs new referral for his hand surgeon so this was placed today. Follow up after studies or prn sooner if needed. Anxiety with depression 10/19/2024 Assessment & Plan [...] today Dental visit up to date, next due March 2023, information for dentist in the area given to patient today Encounter for colorectal cancer screening 2022 Chronic hand pain, left 01/08/2023 Type 2 diabetes mellitus wit h diabetic neuropathy, without long-term current use of insulin 07/18/2022 Assessment & Plan (02/19/2025 4:15 PM EDT): Diabetes is: almost at goal - Lab Results Component Value Date HGBA1C 7.2 (A) 02/19/2025 HGBA1C 7.7 (A) 10/19/2024 HGBA1C 9.4 (A) 06/18/2024 - Lab Results Component Value Date MICROALBUR 296.0 05/10/2023 CREATININE 1.16 10/19/2024 -Changes: none - Diabetic eye exam:pending - Diabetic foot exam:pending - Continue lifestyle modifications - Continue current medications - Follow up: 3 months Assessment & Plan (10/19/2024 2:11 PM EDT): [...] PCP Essential hypertension 12/20/2011 Assessment & Plan (02/19/2025 4:14 PM EDT): I advised: - Aerobic exercise [...] consulting health care provider Assessment & Plan (10/19/2024 2:12 PM EDT): [...] Diagnosed Date Resolved Date Alcohol dependence 12/20/2011 Encounters Date Type Department Care Team Description 04/13/2025 Telephone [facility] MED & PEDS [address] [place] [address] Joan Little MD 04/08/2025 Telephone [facility] MEDICINE [address] [place] [address] Joan Little MD Durable Medical Equipment 03/18/2025 Telephone [facility] MED & PEDS [address] [place] [address] Joan Little MD OCT RECALL 03/01/2025 Refill [facility] MEDICINE [address] [place] [address] Joan Little MD 02/19/2025 10:15 AM EDT Office Visit [facility] MED[facility] [address] [place] [phone] Joan Little MD Type 2 diabetes mellitus with diabetic neuropathy, without long-term current use of insulin ([facility]); Essential hypertension; Hypertriglyceridemia; Otitis of left ear; Lumbar back pain; Dietary counseling; Exercise counseling 02/19/2025 Travel 02/18/2025 Telephone [facility] MEDICINE [address] [place] [phone] Joan Little MD Chart Prep 01/30/2025 Refill [facility] MED[facility] [address] [place] [address] Joan Little MD Chronic bilateral low back pain, unspecified whether sciatica present from Last 3 Months Immunizations Immunization Administration Dates Next Due Influenza High-dose Quadriva [...] Sign Reading Time Taken Comments Blood Pressure 130/70 02/19/2025 10:22 AM EDT Pulse 64 02/19/2025 10:22 AM EDT Temperature 36.1 C (97 F) 02/19/2025 10:22 AM EDT Respiratory Rate 20 02/19/2025 10:22 AM EDT Oxygen Saturation 100% 11/10/2024 10:27 AM EDT Inhaled Oxygen Concentration - - Weight 72.8 kg (160 lb 8 oz) 02/19/2025 10:22 AM EDT Height 162.6 cm (5' 4 ) 02/19/2025 10:22 AM EDT Body Mass Index 27.55 02/19/2025 10:22 AM EDT Plan of Treatment Health Maintenance Due Date Last Done Comments CT Colonography 1955 Dental Oral Exam 1955 Dental Prophylaxis 1955 Dental X-Ray: Bitewings 1955 Dental X-Ray: Full Mouth 1955 FIT DNA/Cologuard 1955 FIT 1955 FOBT 1955 Sigmoidoscopy 1955 Zoster Vaccines (1 of 2) 2005 RSV Patients and Patients Aged 60 years or older (1 - Risk 60-74 years 1-dose series) 2015 Diabetes: Foot Exam 02/12/2024 02/11/2023, 02/11/2023, 02/11/2023, Additional history exists Diabetes: Urine Protein Screening 05/10/2024 05/10/2023 Eye Exam 06/13/2024 06/13/2023, 04/2023, 06/13/2023, Additional history exists COVID-19 Vaccine ( season) 2025 12/13/2021, 07/31/2021, 07/07/2021 Influenza Vaccine (#1) 2025 10/19/2024, 2021 Diabetes: Hemoglobin A1C 05/22/2025 025, 10/19/2024, 06/18/2024, Additional history exists Colonoscopy 07/16/2025 07/16/2023 Colorectal Cancer Screening 07/16/2025 SDOH Screening 10/09/2025 10/09/2024 Depression Screening 10/19/2025 10/19/2024, 10/20/19 25 Lipid Panel 10/19/2025 10/19/2024, 04/2 04/2024, 05/10/2022 Alcohol/Substance Use Screening 02/19/2026 02/19/2025 Tobacco Screening 02/19/2026 02/19/2025 DTaP/Tdap/Td Vaccines (2 - Td or Tdap) 02/11/2033 02/11/2023 Hepatitis C Screening Completed 05/10/2022 Pneumococcal Vaccine: 50+ Years Completed 02/11/2023 HIB Vaccines Aged Out No longer eligi [...] patient's age to complete this topic Meningococcal B Vaccine Aged Out No l onger eligible based on patient's age to complete [...] Procedure Name Priority Date/Time Associated Diagnosis Comments POCT GLYCATED HEMOGLOBIN, TOTAL Routine 02/19/2025 10:25 AM EDT Type 2 diabetes mellitus with diabetic neuropathy, without long-term current use of insulin ([facility]) POCT GLUCOSE Routine 02/19/2025 10:25 AM EDT Type 2 diabetes mellitus with diabetic neuropathy, without long-term current use of insulin ([facility]) LIPID PANEL, STANDARD Routine 10/19/2024 12:53 PM EDT Type 2 diabetes mellitus with diabetic neuropathy, without long-term current use of insulin ([facility]) Essential hypertension HM COLONOSCOPY Routine 07/16/2023 2:56 PM EST ALBUMIN, RANDOM URINE W/CREATININE Routine 05/10/2023 12:09 PM EDT ZZZ HISTORICAL HEPATITIS C AB W/REFL TO HCV RNA, QN, PCR Routine 05/10/2022 11:02 AM EDT from Last 3 Months or Most Recently Relevant to Health Maintenance Results * (ABNORMAL) POCT HGB A1C (02/19/2025 10:25 AM EDT) Hemoglobin A1C 7.2(A) 4.0 - 5.7 % QC Media Lot # [id number] Lot# Expiration Date ,614 Blood 02/19/2025 10:2 5 AM EDT Joan Santos MD POINT OF CARE TEST EN TER/EDIT ORDERABLES Final Result * POCT Glucose (02/19/2025 10:25 AM EDT) Glucose Blood, POC 197 60 - 200 mg/dL Comment:Random QC Media Lot # [id number] Lot# Expiration Date ,428,095 Blood Capillary blood specimen / Unknown 02/19/2025 10:25 AM EDT Joan Santos MD POINT OF CARE TEST EN TER/EDIT ORDERABLES Final Result * (ABNORMAL) Lipid Panel, Standard (10/19/2024 12:53 PM EDT) Triglycerides 409(H) <150 mg/dL [facility] Comment:Desirable Triglyceri de: less than 150 mg/dLBorderline High Triglyceride 150-199 mg/dLHigh Triglyceride: 200-499 mg/dLVery High Triglyceride: greater than or equal to 5OO mg/dL Cholesterol 170 <200 mg/dL [facility] Comment:Desirable Cholestero l: less than 200 mg/dLBorderline High Cholesterol: 200-239 mg/dLHigh Cholesterol: greater than 239 mg/dL LDL Cholesterol Calculated TNP <100 mg/dL [facility] Comment:Unable to calculate the LDL. The formula of Friedwald,Mendez, and Anders is only valid if the triglycerides areless than 400 mg/dl. HDL Cholesterol 46 >40 mg/dL [facility] Comment:Desirable HDL: great er than 40 mg/dL Note: This HDL assay may give artificially low results in patients with liver disease. Blood Venous blood specimen / Unknown 10/19/2024 12:53 PM EDT 10/19/2024 4:29 PM EDT Joan Santos MD LAB BLOOD ORDERABLES Final Result [facility] [address] [place] [address] [phone] * Hm Colonoscopy (07/16/2023 2:56 PM EST) Historical Provider HEALTH MAINTENANCE Final Result * (ABNORMAL) Albumin, Random Urine W/Creatinine (05/10/2023 12:09 PM EDT) Creatinine, Urine 141.27 mg/dL [facility] Microalbumin Urine 296.0 mg/L [facility] Microalbum Creatinine Ratio Ur 209.5(H) <30 ug/mg cr [facility] Comment:Albumin/Creatinine R atio Reference Ranges: Normal: < 30 ug/mg creatinine Microalbuminuria: 30 - 300 ug/mg creatinineClinical Albuminuria: > 300 ug/mg creatinine 05/10/2023 12:0 9 PM EDT 05/10/2023 12:57 PM EDT Joan Santos MD LAB URINE ORDERABLES Final Result Performing Organization Address [facility] de Phone Number [facility] [address] [place] [phone] * HEPATITIS C AB W/REFL TO HCV RNA, QN, PCR (05/10/2022 11:02 AM EDT) HEPATITIS C ANTIBODY NON-REACTI VE NON-REACT OLIVIA [facility]VERT[facility]GAC[facility] INDEX 0.12 <1.00 [facility] Comment: HCV antibody was non-reactive. There is no laboratory evidence of HCV infection. In most cases, no further action is required. However, if recent HCV exposure is suspected, a test for HCV RNA (test code 98237) is suggested. For additional information please refer to http://[email or web address].bideo.com/faq/[email or web address] (This link is being provided for informational/ educational purposes only.) 05/10/2022 11:0 2 AM EDT Joan Santos MD HISTORICAL/NON ORDERA BLE LABS Final Result Performing Organization Address [facility] de Phone Number CONVERTED LEGACY LABS from Last 3 Months or Most Recently Relevant to Health Maintenance Insurance [facility] STANDARD [facility] RETIREMENT OPTIONS (O D-SNP) [facility] Care Teams Manager Banquet Relationship Specialty Start Date End Date Joan Little MD [address] [place] [phone] PCP - General Family Medicine 05/10/22
--- OUTSIDE RECORDS SUMMARY | 2025-04-16 12:02 | XMS_ITS | Encounter Summary ---
Author Organization [employer] Address [address] [facility] [address] [place] [address] Care Team Providers Care Mathematics Academic Chair Name Role Phone Joan Little MD Primary Care Provide r Reason for Visit * Reason Comments Med Refill Encounter Details Date Type Department Care Team ([facility] st Contact Info) Description 06/18/2024 Refill [facility] MEDICINE [address] [place], [place] [phone] Joan Little MD [address] [place] [address] Depressive disorder; Allergic cough; Essential hypertension Social [...] AM EDT documented as of this encounter Functional Status * Over the past 2 weeks, how often have you been bothered by any of the following problems? Question Answer Date of Assessment Author Patient Health Questionnaire -2 Score 0 06/18/2024 10:59 AM Raul Garcia [place] * Over the past 2 weeks, how often have you been bothered by any of the following problems? Question Answer Date of Assessment Author Little interest or pleasure in doing things Not at all 06/18/2024 10:59 AM Raul Garcia [place] Feeling down, depressed, or hopeless Not at all 06/18/2024 10:59 AM Raul Garcia [place] Trouble falling or staying asleep, or sleeping too much Not at all 06/18/2024 10:59 AM Raul Garcia [place] Feeling tired or having reji le energy Not at all 06/18/2024 10:59 AM Raul Garcia [place] Poor appetite or overeating Not at all 06/18/2024 10 :59 AM Raul Garcia [place] Feeling bad about yourself - or that you are a failure or have let yourself or your family down Not at all 06/18/2024 10:59 AM Raul Garcia [place] Trouble concentrating on things, such as reading the newspaper or watching television Not at all 06/18/2024 10:59 AM Raul Garcia MA Moving or speaking so slowly that other people could have noticed? Or the opposite - being so fidgety or restless that you have been moving around a lot more than usual. Not at all 06/18/2024 10:59 AM Raul Garcia MA Thoughts that you would be better off or hurting yourself in some way Not at all 06/18/2024 10:59 AM Raul Garcia MA Patient Health Questionnaire -9 Score 0 06/18/2024 10:59 AM Raul Garcia MA documented as of this encounter Plan of Treatment Not on file documented as of this encounter Visit Diagnoses Diagnosis Depressive disorder Depressive disorder, not elsewhere classified Allergic cough Cough Essential hypertension Unspecified essential hypertension documented in this encounter Additional Health Concerns Assessment Noted Time PHQ-9 Depression Total Score: 0 06/18/20 24 10:59 AM EST documented as of this encounter Care Teams Mathematics Academic Chair Relationship Specialty Start Date End Date Joan Little MD [address] [place] [address] PCP - General Family Medicine 05/10/22 documented as of this encounter
--- OUTSIDE RECORDS SUMMARY | 2025-04-16 12:02 | XMS_ITS | Encounter Summary ---
Author Organization [employer] Address [address] [facility] 7t [place] [address] Care Team Providers Care Cd Mixer Helper Name Role Phone Joan Little MD Primary Care Provide r Encounter Details Date Type Department Care Team ([facility] st Contact Info) Description 10/03/2022 Orders Only [facility] [address] [place], [place] [phone] Felecia Victor MD [address] [place], [place] [phone] Gastroesophageal reflux disease without esophagitis (Primary Dx) [...] Whole Blood 112 60 - 115 mg/dL [facility] Comment:METER #: [id number] 03/08/2023 3:40 PM EDT 03/08/2023 3:44 PM EDT us [facility] External Provider LAB BLO OD ORDERABLES Final Result [facility] [address] [place] [address] [phone] * OBSX1 (03/08/2023 2:17 PM EDT) OBS1 POSITIVE NEGATIVE [facility] 03/08/2023 2:17 PM EDT 03/08/2023 2:28 PM EDT us [facility] External Provider LAB BLO OD ORDERABLES Final Result [facility] [address] [place] [address] [phone] * (ABNORMAL) Comprehensive Metabolic Panel (03/08/2023 11:10 AM EDT) [facility] Sodium 138 135 - 145 mmol/L [facility] Potassium 5.0 3.3 - 5.1 mmol/L [facility] Chloride 105 96 - 108 mmol/L [facility] Carbon Dioxide 20(L) 22 - 29 mmol/L [facility] Anion Gap 18 12 - 20 [facility] Urea Nitrogen (BUN) 20(H) 9 - 16 mg/dL [facility] Creatinine, Serum 1.27 0.5 - 1.4 mg/dL [facility] Creatinine Clr Calc Pharmacy 52.5 [facility] Comment:eGFR (calculated fro m the MDRD study equation) and eCrCl(calculated from the Cockcroft-Gault equation) are based ondifferent parameters and may not yield comparable results.If eCrCl result is absurd, please check patient'sheight/weight. Estimated Glomerular Filt Rate 57 [facility] Comment:NOTE: For -Am erican individuals, multiply the result by 1.210.Chronic Kidney Disease: Estimated GFR < 60 mL/min/1.27s8Chzudg Kidney Disease: Estimated GFR < 15 mL/min/1.73m2 Glucose 278(H) 60 - 115 mg/dL [facility] Calcium 10.1 8.4 - 10.2 mg/dL [facility] Bilirubin, Total 0.2 0.0 - 1.0 mg/dL [facility] Aspartate Amino Transferase 18 5 - 37 U/L [facility] Alanine Aminotransferase 14 0 - 40 U/L [facility] Total Protein 7.9 6.5 - 8.0 g/dL [facility] Albumin Level 4.2 3.5 - 5.0 g/dL [facility] Alkaline Phosphatase 38(L) 39 - 117 U/L [facility] 03/08/2023 11:1 0 AM EDT 03/08/2023 11:13 AM EDT us [facility] External Provider LAB BLO OD ORDERABLES Final Result [facility] [address] [place] [address] [phone] * (ABNORMAL) CBC auto differential (03/08/2023 11:10 AM EDT) White Blood Count 9.2 4.8 - 10.8 X10*3/uL [facility] Red Blood Count 4.12(L) 4.60 - 5.80 X10*6/uL [facility] Hemoglobin 12.1(L) 14.0 - 18.0 g/dl [facility] Hematocrit 36.0(L) 42.0 - 52.0 % [facility] Mean Corpuscular Volume 87.4 80.0 - 98.0 fL [facility] Mean Corpuscular Hemoglobin 29.4 27.0 - 33.0 pg [facility] Mean Corpuscular HGB Conc 33.6 31.0 - 36.0 g/dl [facility] Red Cell Distribution Width 13.2 11.0 - 16.0 % [facility] Platelet Count 280 160 - 400 X10*3/uL [facility] Mean Platelet Volume 9.8 9.4 - 12.4 fL [facility] Neutrophils Percent Auto 58.7 45 - 73 % [facility] Imm Gran Pct Auto 0.3 0.0 - 0.4 % [facility] Lymphocytes Percent Auto 31.6 20 - 40 % [facility] Monocytes Percent Auto 6.9 2 - 11 % [facility] Eosinophils Percent Auto 2.1 0 - 4 % [facility] Basophils Percent Auto 0.4 0 - 2 % [facility] NRBC Pct Auto 0.0 0.0 - 0.2 /100WBC [facility] Neutrophils Absolute Auto 5.4 2.0 - 8.3 x10*3/uL [facility] Imm Gran Abs Auto 0.03 0.00 - 0.03 X10*3/uL [facility] Lymphocytes Absolute Auto 2.9 1.2 - 4.9 X10*3/uL [facility] Monocytes Absolute Auto 0.6 0.1 - 1.2 X10*3/uL [facility] Eosinophils Absolute Auto 0.2 0.0 - 0.4 X10*3/uL [facility] Basophils Absolute Auto 0.0 0.0 - 0.2 X10*3/uL [facility] NRBC Abs Auto 0.000 0.0 - 0.012 X10*3/uL [facility] 03/08/2023 11:1 0 AM EDT 03/08/2023 11:13 AM EDT [facility] External Provider LAB BLO OD ORDERABLES Final Result [facility] [address] [place] [phone] * High Sensitivity Troponin I (02/17/2023 11:28 AM EDT) TROPONIN I HIGH SENSITIVITY <2.7 <3.5 - 35.0 ng/L [facility] Comment:The Macias high sens itivity Troponin-I results should beused in conjunction with other diagnostic information suchas ECG, clinical observations and information, and patientsymptoms to aid in the diagnosis of PR. 02/17/2023 11:2 8 AM EDT 02/17/2023 11:33 AM EDT [facility] External Provider LAB BLO OD ORDERABLES Final Result Performing Organization Address City/[facility]/ZIP Co de Phone Number [facility] [address] [place] [address] [phone] * (ABNORMAL) Basic Metabolic Panel (02/17/2023 11:28 AM EDT) Sodium 137 135 - 145 mmol/L [facility] Potassium 5.1 3.3 - 5.1 mmol/L [facility] Chloride 102 96 - 108 mmol/L [facility] Carbon Dioxide 23 22 - 29 mmol/L [facility] Anion Gap 17 12 - 20 [facility] Urea Nitrogen (BUN) 12 9 - 16 mg/dL [facility] Creatinine, Serum 1.08 0.5 - 1.4 mg/dL [facility] Creatinine Clr Calc Pharmacy 62.3 [facility] Comment:eGFR (calculated fro m the MDRD study equation) and eCrCl(calculated from the Cockcroft-Gault equation) are based ondifferent parameters and may not yield comparable results.If eCrCl result is absurd, please check patient'sheight/weight. Estimated Glomerular Filt Rate >60 [facility] Comment:NOTE: For -Am erican individuals, multiply the result by 1.210.Chronic Kidney Disease: Estimated GFR < 60 mL/min/1.77t6Hrwlcr Kidney Disease: Estimated GFR < 15 mL/min/1.73m2 Glucose 247(H) 60 - 115 mg/dL [facility] Calcium 10.5(H) 8.4 - 10.2 mg/dL [facility] 02/17/2023 11:2 8 AM EDT 02/17/2023 11:33 AM EDT [facility] External Provider LAB BLO OD ORDERABLES Final Result Performing Organization Address City/[facility]/ZIP Co de Phone Number [facility] [address] [place] [address] [phone] * (ABNORMAL) CBC auto differential (02/17/2023 11:28 AM EDT) White Blood Count 8.1 4.8 - 10.8 X10*3/uL [facility] Red Blood Count 4.64 4.60 - 5.80 X10*6/uL [facility] Hemoglobin 13.5(L) 14.0 - 18.0 g/dl [facility] Hematocrit 40.8(L) 42.0 - 52.0 % [facility] Mean Corpuscular Volume 87.9 80.0 - 98.0 fL [facility] Mean Corpuscular Hemoglobin 29.1 27.0 - 33.0 pg [facility] Mean Corpuscular HGB Conc 33.1 31.0 - 36.0 g/dl [facility] Red Cell Distribution Width 12.9 11.0 - 16.0 % [facility] Platelet Count 243 160 - 400 X10*3/uL [facility] Mean Platelet Volume 9.9 9.4 - 12.4 fL [facility] Neutrophils Percent Auto 54.9 45 - 73 % [facility] Imm Gran Pct Auto 0.6(H) 0.0 - 0.4 % [facility] Lymphocytes Percent Auto 34.6 20 - 40 % [facility] Monocytes Percent Auto 7.5 2 - 11 % [facility] Eosinophils Percent Auto 2.0 0 - 4 % [facility] Basophils Percent Auto 0.4 0 - 2 % [facility] NRBC Pct Auto 0.0 0.0 - 0.2 /100WBC [facility] Neutrophils Absolute Auto 4.5 2.0 - 8.3 x10*3/uL [facility] Imm Gran Abs Auto 0.05(H) 0.00 - 0.03 X10*3/uL [facility] Lymphocytes Absolute Auto 2.8 1.2 - 4.9 X10*3/uL [facility] Monocytes Absolute Auto 0.6 0.1 - 1.2 X10*3/uL [facility] Eosinophils Absolute Auto 0.2 0.0 - 0.4 X10*3/uL [facility] Basophils Absolute Auto 0.0 0.0 - 0.2 X10*3/uL [facility] NRBC Abs Auto 0.000 0.0 - 0.012 X10*3/uL [facility] 02/17/2023 11:2 8 AM EDT 02/17/2023 11:33 AM EDT us [facility] External Provider LAB BLO OD ORDERABLES Final Result [facility] [address] [place] [address] [phone] * T-SPOT??.TB (02/11/2023 11:26 AM EDT) T Spot TB Negative Negative [facility] Comment:A negative test resu lt [...] as aquantitative test. TS PANEL A 0 [facility] TS PANEL B 0 [facility] Negative Control Passed [facility] Positive Control Passed [facility] Comment:For additional infor brody, please refer tohttp://education.AlmondNet/faq/MZA184(This link is being provided for informational/educational purposes only.)THIS TEST WAS PERFORMED AT:[facility] [id number] [place] [address]VTFQSTGMAGDALENA WHITAKER MD,PHD 02/11/2023 11:2 6 AM EDT 02/11/2023 1:16 PM EDT [facility] External Provider LAB BLO OD ORDERABLES Final Result Performing Organization Address City/[facility]/ZIP Co de Phone Number [facility] [address] [place] [address] [phone] * Measles Antibody (IgG), Immune Status (02/11/2023 11:26 AM EDT) Rubeola IgG (Measles) >300.00 AU/mL [facility] Comment:AU/mL Interpretation ----- <13.50 Not consistent with cyrasjhm21.50-16.49 Equivocal>16.49 Consistent with immunityThe presence of measles IgG suggests immunization orpast or current infection with measles virus.For additional information, please refer tohttp://Lukkin.Finario/faq/VYL088(This link is being provided for informational/educational purposes only.)THIS TEST WAS PERFORMED AT:[facility] [place] [id number] SOTO MD 02/11/2023 11:2 6 AM EDT 02/11/2023 1:16 PM EDT [facility] External Provider LAB BLO OD ORDERABLES Final Result Performing Organization Address [facility] Co de Phone Number [facility] [address] [place] [address] [phone] * Rubella Antibody (IgG), Immune Status (02/11/2023 11:26 AM EDT) Rubella IgG Antibody 31.70 Index [facility] Comment:Index Interpretation ----- <0.90 Not consistent with immunity 0.90-0.99 Equivocal > or = 1.00 Consistent with immunityThe presence of rubella IgG antibody suggestsimmunization or past or current infection withrubella virus.THIS TEST WAS PERFORMED AT:[facility] [place] [id number] SOTO MD 02/11/2023 11:2 6 AM EDT 02/11/2023 1:16 PM EDT [facility] External Provider LAB BLO OD ORDERABLES Final Result Performing Organization Address [facility] Co de Phone Number [facility] [address] [place] [address] [phone] * Mumps Virus Antibody (IgG), Immune Status (02/11/2023 11:26 AM EDT) Mumps Virus IgG Antibody 27.40 AU/mL [facility] Comment:AU/mL Interpretatio n------- <9.00 Not consistent with immunity9.00-10.99 Equivocal>10.99 Consistent with immunityThe presence of mumps IgG antibody suggests immunizationor past or current infection with mumps virus.THIS TEST WAS PERFORMED AT:[facility] [address] [id number] SOTO MD 02/11/2023 11:2 6 AM EDT 02/11/2023 1:16 PM EDT [facility] External Provider LAB BLO OD ORDERABLES Final Result Performing Organization Address [facility] de Phone Number [facility] [address] [place] [address] [phone] documented in this encounter Visit Diagnoses Diagnosis Gastroesophageal reflux disease without esophagitis- Primary Esophageal reflux documented in this encounter Care Teams Cd Mixer Helper Relationship Specialty Start Date End Date Joan Little MD [address] [place] [address] PCP - General Family Medicine 05/10/22 documented as of this encounter
== END 2025-04-16 11:18 | disposition home or self-care (01) ==
LOC: HO.HOS 10:27
PROVIDERS: PCP Internal Medicine; Visit Provider Physician Assistant
DX: M75.102 Unspecified rotator cuff tear or rupture of left shoulder, not specified as traumatic (principal)
CPT/HCPCS: 20610; 99213

== ENCOUNTER → 2025-04-16 10:28 | Outpatient (BNV) | payer OTHER, SELFPAY | PROVIDERS: Visit Provider Radiology Diagnostic Radiology | DX: M11.212 Other chondrocalcinosis, left shoulder (principal) | CPT/HCPCS: 73030 ==

== ENCOUNTER 2025-06-09 09:20 | Outpatient (REF) | payer OTHER, SELFPAY ==
--- NOTE | 2025-06-09 09:24 | EMG_ITS ---
Chief complaint: Left hand numbness, fingers described as painful, worse on 3rd digit. Diabetic but denies history of neuropathy. EMG done by me 05/28/2024 shows left ulnar neuropathy. Reason for referral: Evaluate for ulnar neuropathy Referred by: Dr. Liz Procedure done: Left upper extremity NCS/EMG Precautions and/or limitations: None The limb temperature was monitored continuously and remained between 32-36 degrees C during the performance of the NCS. Ulnar motor NCS was performed with moderate elbow flexion between 70-90 degrees, with across-elbow distance of 10 cm. Nerve Conduction Studies Anti Sensory Summary Table ?Stim Site NR Onset (ms) Norm Onset (ms) Peak (ms) Norm Peak (ms) O-P Amp (?V) Norm O-P Amp Site1 Site2 Delta-0 (ms) Dist (cm) Nigel (m/s) Norm Nigel (m/s) Left DorsCutan Anti Sensory (Dorsum 5th MC) Wrist ? 2.4 3.0 13.9 Wrist Dorsum 5th MC 2.4 0.0 Left Median Anti Sensory (2nd Digit) Wrist ? 2.8 3.6 <3.6 19.7 >10 Wrist 2nd Digit 2.8 14.0 50 Left Radial Anti Sensory (Thumb) Forearm ? 1.9 2.4 <3.1 13.4 Forearm Thumb 1.9 0.0 Left Ulnar Anti Sensory (5th Digit) Wrist ? 2.9 3.5 <3.7 3.3 >15.0 Wrist 5th Digit 2.9 14.0 48 Motor Summary Table ?Stim Site NR Onset (ms) Norm Onset (ms) O-P Amp (mV) Norm O-P Amp iAmp (mV) Amp (1st) (%) Site1 Site2 Delta-0 (ms) Dist (cm) Nigel (m/s) Norm Nigel (m/s) Left Median Motor (Abd Poll Brev) Wrist ? 3.8 <3.9 10.6 >4.5 12.6 100.0 Elbow Wrist 3.8 17.5 46 >45 Elbow ? 7.6 10.0 11.8 94.3 Left Ulnar (FDI) Motor (FDI) Wrist ? 4.4 <3.0 12.6 >5 15.0 100.0 B Elbow Wrist 3.1 16.5 53 >45 B Elbow ? 7.5 9.4 11.3 74.6 A Elbow B Elbow 2.0 10.0 50 >45 A Elbow ? 9.5 9.3 11.0 73.8 Comparison Summary Table ?Stim Site NR Peak (ms) Norm Peak (ms) P-T Amp (?V) Site1 Site2 Delta-P (ms) Norm Delta (ms) Left Median/Radial Dig I Comparison (Digit 1 - 10cm) Median ? 3.0 <2.9 76.6 Median Radial 0.3 Radial ? 3.3 <2.8 9.8 EMG ?Side Muscle Nerve Root Ins Act Fibs Psw Amp Dur Poly Recrt Int Pat Comment Left 1stDorInt Ulnar C8-T1 Nml Nml Nml Nml Nml 0 Nml Complete Left FlexCarRad Median C6-7 Nml Nml Nml Nml Nml 0 Nml Complete Left FlexCarpiUln Ulnar C8,T1 Nml Nml Nml Nml Nml 0 Nml Complete Left Biceps Musculocut C5-6 Nml Nml Nml Nml Nml 0 Nml Complete Left Triceps Radial C6-7-8 Nml Nml Nml Nml Nml 0 Nml Complete Left Deltoid Axillary C5-6 Nml Nml Nml Nml Nml 0 Nml Complete Paraspinal EMG ?Side Muscle Nerve Root Ins Act Fibs Psw Comment Left Cervical Upper Rami Nml Nml Nml Left Cervical Mid Rami Nml Nml Nml Left Cervical Lower Rami Nml Nml Nml FINDINGS: Left ulnar motor nerve, recording at [facility], continues to show prolonged distal latencies. There is slight slowing of conduction velocity across the elbow. Amplitudes normal. Can not rule out possibility of possible Elias Gissel anastomosis, which is a normal anatomic variant. Left ulnar sensory nerve continues to show small amplitude but normal peak latencies. Left dorsal ulnar cutaneous sensory nerve within normal. All other nerves tested were within normal. Concentric needle EMG was performed in selected muscles of the left upper extremity and cervical paraspinal. Study did not reveal signs of electric abnormalities as shown in the table above. IMPRESSION: 1. This is an abnormal study. 2. 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 3. There is no electrodiagnostic evidence for median neuropathy, brachial plexopathy, or cervical radiculopathy. CLINICAL COMMENT: Consistent with findings on previous EMG 05/28/2024, although more able to localize today that entrapment neuropathy is at the elbow. Thank you for your kind referral. Viridiana Arevalo MD, LEROY Board Certified, [place] Board of Physical Medicine and Rehabilitation (ABPMR) Board Certified, [place] Board of Electrodiagnostic Medicine (ABEM) [place] [id number] [facility]
== END 2025-06-09 09:21 | disposition home or self-care (01) ==
LOC: HO.NEURO 09:20
DX: R20.0 Anesthesia of skin (principal); R20.2 Paresthesia of skin; M79.645 Pain in left finger(s)
CPT/HCPCS: 95886; 95909

== ENCOUNTER → 2025-06-09 09:24 | Outpatient (BNV) | payer OTHER, SELFPAY | PROVIDERS: Visit Provider Physical Medicine & Rehabilitation | DX: G56.22 Lesion of ulnar nerve, left upper limb (principal) | CPT/HCPCS: 95886; 95909 ==